=== PATIENT | female | born 1965 | race Caucasian/White ===

== ENCOUNTER 2020-05-02 06:25 | Outpatient (REF) | payer OTHER, SELFPAY ==
[2020-05-02 11:19] LABS: MANUAL DIFF FLAG NO
[2020-05-02 11:38] LABS: Basophils Percent Auto 0.5 % (0-2); Eosinophils Absolute Auto 0.4 X10*3/uL (0.0-0.4); Eosinophils Percent Auto 6.8 % (0-4); Hematocrit 43.3 % (37-47); Hemoglobin 13.9 g/dl (12.0-16.0); Imm Gran Abs Auto 0.01 X10*3/uL (0.00-0.03); Imm Gran Pct Auto 0.2 % (0.0-0.4); Lymphocytes Absolute Auto 1.9 X10*3/uL (1.2-4.9); Lymphocytes Percent Auto 30.5 % (20-40); Mean Corpuscular HGB Conc 32.1 g/dl (31.0-35.0); Mean Corpuscular Hemoglobin 29.8 pg (27.0-33.0); Mean Corpuscular Volume 92.7 fL (80-98); Mean Platelet Volume 10.7 fL (9.4-12.3); Monocytes Absolute Auto 0.5 X10*3/uL (0.1-1.2); Monocytes Percent Auto 7.9 % (2-11); Neutrophils Absolute Auto 3.4 X10*3/uL (2.0-8.3); Neutrophils Percent Auto 54.1 % (45-73); Platelet Count 229 X10*3/uL (160-400); Red Blood Count 4.67 X10*6/uL (4.20-5.50); Red Cell Distribution Width 13.5 % (11.0-16.0); White Blood Count 6.3 X10*3/uL (4.8-10.8)
[2020-05-02 12:00] LABS: Alanine Aminotransferase 25 U/L (0-31); Alkaline Phosphatase 74 U/L (39-117); Anion Gap 12 (12-20); Aspartate Amino Transferase 16 U/L (5-31); Bilirubin Total 0.4 mg/dL (0.0-1.0); Blood Urea Nitrogen 19 mg/dL (9-16); Calcium 8.8 mg/dL (8.4-10.2); Carbon Dioxide 29 mmol/L (22-29); Chloride 103 mmol/L (96-108); Cholesterol 173 mg/dL; Estimated Glomerular Filt Rate > 60; Glucose Fasting 115 mg/dL (60-99); HDL Cholesterol 54 mg/dL; LDL Cholesterol Calculated 100 mg/dl; Potassium 4.1 mmol/l (3.3-5.1); Sodium 140 mmol/L (135-145); Total Protein 6.9 g/dL (6.5-8.0); Triglycerides 95 mg/dL
[2020-05-02 12:12] LABS: T4 Thyroxine 6.4 ug/dL (4.5-12.0); Thyroid Stimulating Hormone 3.73 mIU/mL (0.32-4.0); Vitamin D 25-OH Total 26.8 ng/mL (>30)
[2020-05-02 12:17] LABS: Folate 10.7 ng/mL (> or = 4.0); Vitamin B12 507 pg/mL (200-900)
[2020-05-02 13:32] LABS: Estimated Average Glucose 114 mg/dL; Hemoglobin A1c % 5.6 %
== END 2020-05-02 06:26 | disposition home or self-care (01) ==
LOC: HO.HMGCLDS 06:25
PROVIDERS: PCP Internal Medicine; Visit Provider Internal Medicine
DX: K21.9 Gastro-esophageal reflux disease without esophagitis (principal); Z00.00 Encounter for general adult medical examination without abnormal findings; I10 Essential (primary) hypertension; F41.9 Anxiety disorder, unspecified; E66.01 Morbid (severe) obesity due to excess calories; R73.01 Impaired fasting glucose
CPT/HCPCS: 36415; 80053; 80061; 82306; 82607; 82746; 83036; 84436; 84443; 85025; 86900; 86901

== ENCOUNTER 2021-04-27 09:00 | Outpatient (REF) | payer OTHER, SELFPAY ==
--- NOTE | ~2021-04-27 | MM_ITS ---
EXAMINATION: MM SCREENING DIGITAL BREAST TOMOSYNTHESIS, BILATERAL CLINICAL INFORMATION: Screening. Asymptomatic. The lifetime risk of breast cancer based on the Tyrer-Cuzick Model is 8%. COMPARISON: Mammography: 03/31/2020, 03/26/2019, 01/01/2018 TECHNIQUE: Digital breast tomosynthesis is performed in both the craniocaudal and mediolateral oblique views along with computer-aided detection (CAD). Synthesized 2D images are generated from the tomosynthesis. Additional views are obtained: Exaggerated right CC, left CC, left MLO. FINDINGS: There are scattered areas of fibroglandular density (ACR BI-RADS breast composition Category b). There are no significant masses, abnormal calcifications, or other abnormalities. There is no developing density or interval mass or architectural abnormality. The axilla and skin contours are unremarkable. No significant changes. MM/MM tomosynthesis screening BI IMPRESSION: No mammographic evidence of malignancy. ASSESSMENT: BI-RADS 1: Negative RECOMMENDATION: Routine annual mammography screening. This patient's information was entered into a reminder system with a target due date for their next mammogram.
== END 2021-04-27 09:01 | disposition home or self-care (01) ==
LOC: HO.MAMMO 09:00
PROVIDERS: Visit Provider Internal Medicine
DX: Z12.31 Encounter for screening mammogram for malignant neoplasm of breast (principal)
CPT/HCPCS: 77063; 77067

== ENCOUNTER 2021-05-11 08:00 | Outpatient (RCR) | payer OTHER, SELFPAY ==
--- NOTE | 2021-04-20 09:08 | MHC.PT.EP ---
[facility] [place] Office [place] Office [place] Office [address] Juan Manuel Lee [address] [phone] F: [phone] F: [phone] F: [phone] F: [phone] Physical Therapy Plan of Care Date of Evaluation: Date of Surgery: n/a Diagnosis: dorsalgia Assessment: Patient is a 56 year old R handed female who presents with s/s consistent with dorsalgia. 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 She admittedly has to spend a good amount of time in suboptimal positions during the work day. Patient past medical history includes obesity, HTN, GERD. Current impairments include pain, ROM, strength, activity tolerance and functional mobility. Functional limitations include decreased ability to walk, stand, transfer, sleep, bend, lift, carry, negotiate stairs, and perform weight bearing activities.. Patient is motivated with good rehab potential. Skilled PT will address impairments and functional limitations in order to achieve goals. Frequency and Duration: The patient will be seen 2x/week for 5 weeks Short Term Goals: I with HEP - 2 weeks Symmetrical innom - 3 weeks Restore symmetrical rotation and gait - 3 weeks Chcf Goals: Pain free sleep and ADLs - 5 weeks No increased pain by end of work day - 5 weeks Oswestry 8% or better - 5 weeks Treatment Plan: Modalities to reduce pain, spasms and effusion. Manual therapy to restore motion and function. Therapeutic exercise to improve strength and flexibility. Neuromuscular re-education for posture and balance. Therapeutic activities to return to functional activities of daily living. Electronically signed by: Niranjan Jason, PT Please sign and return to therapist. Thank you for your referral.
--- NOTE | 2021-09-07 09:50 | MHC.PT.DC ---
[facility] [place] Office [place] Office [place] Office [address] Juan Manuel Lee [address] [phone] F: [phone] F: [phone] F: [phone] F: [phone] Physical Therapy Discharge Report Diagnosis: dorsalgia Date of Surgery: n/a Date of Evaluation: 04/20/21 Date of Discharge: 05/11/21 Treatments to Date: 4 Cancellations to Date: 0 No Shows to Date: 0 Discharge Status: Patient Elected to Stop Discharge Summary: Pt elected to stop treatment after this appointment. SI appears WFL and no pain with squish test. Performed core stabilization exercises and pt reports feeling better. SHe is making good progress and no increase in pain noted. Electronically signed by: Niranjan Jason, PT Please sign and return to therapist. Thank you for your referral.
== END 2021-09-07 09:51 | disposition home or self-care (01) ==
LOC: HO.PTCHIC 08:00
PROVIDERS: PCP Internal Medicine; Visit Provider Internal Medicine
DX: M54.9 Dorsalgia, unspecified (principal)
CPT/HCPCS: 97110; 97140; 97161

== ENCOUNTER 2021-09-04 07:43 | Outpatient (REF) | payer OTHER, SELFPAY ==
[2021-09-04 11:39] LABS: MANUAL DIFF FLAG NO
[2021-09-04 11:41] LABS: Basophils Percent Auto 0.4 % (0-2); Eosinophils Absolute Auto 0.3 X10*3/uL (0.0-0.4); Eosinophils Percent Auto 5.7 % (0-4); Hematocrit 45.4 % (37.0-47.0); Hemoglobin 14.8 g/dl (12.0-16.0); Imm Gran Abs Auto 0.01 X10*3/uL (0.00-0.03); Imm Gran Pct Auto 0.2 % (0.0-0.4); Lymphocytes Absolute Auto 1.8 X10*3/uL (1.2-4.9); Mean Corpuscular HGB Conc 32.6 g/dl (31.0-35.0); Mean Corpuscular Hemoglobin 29.7 pg (27.0-33.0); Mean Platelet Volume 10.7 fL (9.4-12.3); Monocytes Absolute Auto 0.5 X10*3/uL (0.1-1.2); Monocytes Percent Auto 8.3 % (2-11); Neutrophils Absolute Auto 2.9 x10*3/uL (2.0-8.3); Neutrophils Percent Auto 52.4 % (45-73); Platelet Count 260 X10*3/uL (160-400); Red Blood Count 4.99 X10*6/uL (4.20-5.50); Red Cell Distribution Width 13.4 % (11.0-16.0); White Blood Count 5.5 X10*3/uL (4.8-10.8)
[2021-09-04 11:58] LABS: Estimated Average Glucose 123 mg/dL; Hemoglobin A1c % 5.9 %
[2021-09-04 12:16] LABS: Free T4 (Free Thyroxine) 0.92 ng/dL (0.71-1.85); Thyroid Stimulating Hormone 3.04 uIU/mL (0.32-4.0); Vitamin D 25-OH Total 38.1 ng/mL (>30)
[2021-09-04 12:22] LABS: Alanine Aminotransferase 35 U/L (0-31); Albumin Level 4.1 g/dL (3.5-5.0); Alkaline Phosphatase 81 U/L (39-117); Anion Gap 14 (12-20); Aspartate Amino Transferase 28 U/L (5-31); Bilirubin Total 0.6 mg/dL (0.0-1.0); Blood Urea Nitrogen 16 mg/dL (9-16); Calcium 9.3 mg/dL (8.4-10.2); Carbon Dioxide 30 mmol/L (22-29); Chloride 101 mmol/L (96-108); Cholesterol 178 mg/dL; Estimated Glomerular Filt Rate > 60; Glucose Random 130 mg/dL (60-115); HDL Cholesterol 51 mg/dL; LDL Cholesterol Calculated 101 mg/dl; Potassium 3.5 mmol/L (3.3-5.1); Sodium 141 mmol/L (135-145); Total Protein 7.2 g/dL (6.5-8.0); Triglycerides 133 mg/dL
[2021-09-04 12:28] LABS: Folate 15.2 ng/mL (> or = 4.0); Vitamin B12 747 pg/mL (200-900)
== END 2021-09-04 07:44 | disposition home or self-care (01) ==
LOC: HO.HMGCLDS 07:43
PROVIDERS: Visit Provider Internal Medicine
DX: I10 Essential (primary) hypertension (principal); E78.00 Pure hypercholesterolemia, unspecified; R73.01 Impaired fasting glucose
CPT/HCPCS: 36415; 80053; 80061; 82306; 82607; 82746; 83036; 84439; 84443; 85025

== ENCOUNTER 2022-03-16 01:54 | Emergency (ER) | payer OTHER, SELFPAY ==
--- NOTE | ~2022-03-16 | CT_ITS ---
EXAMINATION: CT CHEST WITHOUT CONTRAST CLINICAL INFORMATION: Trauma. COMPARISON: 03/07/2016 TECHNIQUE: Multidetector volumetric CT imaging of the chest was done. Axial MIP volume rendering provided. Sagittal and coronal reformatted images were obtained. This CT examination was performed using dose optimization techniques as appropriate, variously including the following: *Automated exposure control *Adjustment of mA and/or kV according to patient size (this includes techniques or standardized protocols for targeted exams where dose is matched to indication/reason for exam; i.e. extremities or head) *Use of iterative reconstruction technique DLP: 603 mGy-cm FINDINGS: LUNGS: The lungs are clear with no evidence of inflammation or nodules. No pneumothorax. MEDIASTINUM: Normal heart size. No pericardial effusion. Great vessels normal caliber. No mediastinal or hilar lymphadenopathy. PLEURA: There is no pleural effusion. No pleural mass or thickening. AXILLA: No lymphadenopathy. UPPER ABDOMEN: Small sliding-type hiatal hernia. OSSEOUS STRUCTURES: Acute mildly displaced fractures of the left lateral fifth, sixth and seventh ribs.. No additional fractures. CT/CT chest wo IV con IMPRESSION: Acute mildly displaced fractures of the left lateral 5th-7th ribs. No pneumothorax.
--- NOTE | ~2022-03-16 | CT_ITS ---
EXAMINATION: NONCONTRAST HEAD CT NONCONTRAST CERVICAL SPINE CT INDICATION INFORMATION: Fall. COMPARISON: None TECHNIQUE: Separate noncontrast CT examinations of the head and cervical spine were performed. Coronal and sagittal images were created for each examination at the technologist workstation. This CT examination was performed using dose optimization techniques as appropriate, variously including the following: *Automated exposure control *Adjustment of mA and/or kV according to patient size (this includes techniques or standardized protocols for targeted exams where dose is matched to indication/reason for exam; i.e. extremities or head) *Use of iterative reconstruction technique DLP: 1204 mGy-cm FINDINGS: Head: There is no evidence of acute intracranial hemorrhage or territorial infarction. No abnormal mass effect or midline shift is seen. Ruth to white matter differentiation is well preserved. No extra-axial fluid collections are identified. No hydrocephalus. No significant volume loss. There is no abnormal attenuation within the brain parenchyma. No acute osseous or soft tissue abnormality. The mastoid air cells and visualized portions of the paranasal sinuses are well aerated. Cervical spine: There is anatomic alignment of the vertebral bodies and posterior elements. The atlantoaxial and atlantooccipital articulations are intact. Vertebral body heights maintained. Endplate osteophytes present throughout the lower cervical spine. No evidence of acute fracture. No prevertebral soft tissue swelling. Visualized portions of the lung apices are unremarkable. The thyroid gland is unremarkable. CT/CT head/brain wo IV con IMPRESSION: No acute intracranial pathology. No cervical spine fracture or traumatic malalignment.
--- NOTE | ~2022-03-16 | CT_ITS ---
EXAMINATION: NONCONTRAST HEAD CT NONCONTRAST CERVICAL SPINE CT INDICATION INFORMATION: Fall. COMPARISON: None TECHNIQUE: Separate noncontrast CT examinations of the head and cervical spine were performed. Coronal and sagittal images were created for each examination at the technologist workstation. This CT examination was performed using dose optimization techniques as appropriate, variously including the following: *Automated exposure control *Adjustment of mA and/or kV according to patient size (this includes techniques or standardized protocols for targeted exams where dose is matched to indication/reason for exam; i.e. extremities or head) *Use of iterative reconstruction technique DLP: 1204 mGy-cm FINDINGS: Head: There is no evidence of acute intracranial hemorrhage or territorial infarction. No abnormal mass effect or midline shift is seen. Ruth to white matter differentiation is well preserved. No extra-axial fluid collections are identified. No hydrocephalus. No significant volume loss. There is no abnormal attenuation within the brain parenchyma. No acute osseous or soft tissue abnormality. The mastoid air cells and visualized portions of the paranasal sinuses are well aerated. Cervical spine: There is anatomic alignment of the vertebral bodies and posterior elements. The atlantoaxial and atlantooccipital articulations are intact. Vertebral body heights maintained. Endplate osteophytes present throughout the lower cervical spine. No evidence of acute fracture. No prevertebral soft tissue swelling. Visualized portions of the lung apices are unremarkable. The thyroid gland is unremarkable. CT/CT cervical spine wo IV con IMPRESSION: No acute intracranial pathology. No cervical spine fracture or traumatic malalignment.
[2022-03-16 02:02] VITALS: BP 132/82; BP 136/83; PULSE 97; PULSE 98; RESP 14; TEMP 36.5; O2SAT 97; O2SAT 99; BMI 37.8
[2022-03-16 06:00] VITALS: BP 145/85; PULSE 90; O2SAT 96
[2022-03-16] MEDS: Ketorolac Tromethamine 15 MG/ML VIAL 30 MG IVPUSH (06:04)
--- NOTE | 2022-03-16 06:31 | ED_ITS ---
HPI - Trauma General Chief Complaint: Trauma Stated Complaint: left rib pain/fall Time Seen by Provider: 03/16/22 02:59 Source: patient Mode of arrival: EMS Limitations: no limitations History of Present Illness HPI narrative: 57-year-old female who presents emergency department for evaluation fall down a hill with head injury and left-sided chest injury. The patient states that approximately 01:00 hours she when outside to feed her goats. She states she was walking down a very steep hill and tripped on some tree stumps. She then tumbled down the hill and and struck her face on a shed wall at the bottom of the help She also believes that she may have struck her left chest on the shed wall. The patient had no loss of consciousness. She states she was able to get up and feed the goats. She took some ibuprofen and went to bed. When she woke up she was having severe pain in her left chest. She states the pain is a sharp pain which is 10/10. The pain is worse with movement worse with breathing. She denied headache, nausea, vomiting, weakness. She denied shortness of breath. MD complaint: fall Onset (ago): hour(s) (2) Loss of Consciousness: no Location: head, face and chest (Left) Severity scale (1-10): 10 Context: fall Associated symptoms: denies other symptoms Treatments prior to arrival: other (Ibuprofen) Related Data Previous Rx's Medication Instructions Recorded fluticasone propionate 50 2 spray intranasal DAILY #15.8 mL 04/26/20 mcg/actuation nasal spray,suspension (Flonase Allergy Relief) losartan 50 mg tablet 50 mg PO DAILY #90 tabs 08/09/21 omeprazole 20 mg capsule,delayed 20 mg PO DAILY #90 caps 08/09/21 release blood sugar diagnostic (FreeStyle #100 ea 09/11/21 Lite Strips) blood-glucose meter (FreeStyle #1 ea 09/11/21 Lite Meter kit) lancets 28 gauge (FreeStyle #100 ea 09/11/21 Lancets) lancets 28 gauge (FreeStyle #100 ea 09/11/21 Lancets) hydrochlorothiazide 25 mg tablet 25 mg PO QAM #90 tabs 02/05/22 alprazolam 0.25 mg tablet 0.25 mg PO DAILY PRN anxiety #28 03/01/22 tabs Allergies Allergy/AdvReac Type Severity Reaction Status Date / Time No Known Allergies Allergy Verified 02/22/22 08:56 [No Known Allergies*] Review of Systems Review of Systems: Yes all other systems are reviewed and are negative [facility] Past Medical History [facility] Narrative: Past medical history: Hypertension, hyperlipidemia, GERD. Past surgical history: None. Social history: She denies tobacco use. She states that she drinks 2 glasses of wine daily and she did drink some wine prior to going out to feed the goats. She denies drug use. 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 Medical History (Updated 03/16/22 @ 06:50 by Carlos Canales MD) Allergic rhinitis Anxiety GERD (gastroesophageal reflux disease) Hypertension Obesity Surgical History (Updated 02/22/22 @ 09:23 by Pushpa Meadows MD) History of abdominal surgery Family History Family History Father Diabetes Hypertension Mother Hypertension Renal cancer S/P total abdominal hysterectomy and bilateral salpingo-oophorectomy Sister Depression Brother Substance abuse Depression Social History Social History (Updated 02/22/22 @ 09:24 by Pushpa Meadows MD) Housing: House Alcohol intake: current Alcohol intake frequency: a few times a week Patient Tobacco Use Status: Former Tobacco user Tobacco use type: Cigarette Years Smoked: 2011 e-Cigarette/Vaping Use: Never Used Second Hand Smoke Exposure: No Advance Directives: No service: No Current occupational status: employed Cognitive needs: No Hearing needs: No Vision needs: Yes (contacts) Physical Exam Vital Signs: Vital Signs: Last Vital Signs Temp 97.7 F 03/16/22 02:02 Pulse 90 03/16/22 06:00 Resp 14 03/16/22 02:02 BP 145/85 H 03/16/22 06:00 Pulse Ox 96 03/16/22 06:00 O2 Del Method 03/16/22 06:00 BMI result Body Mass Index 37.8 Const: Other: Awake, alert, female patient, pleasant, cooperative, answers all questions appropriately, does not appear to be in distress HEENT: Other: Patient's head is normal cephalic, she has no tenderness palpation of her scalp there is no hematomas. She does have an abrasion to her a left upper lip, she has no tenderness palpation of her facial bones. Ears: external ears normal General nose exam: Normal external nose present Mouth: Normal oral and palatal mucosa present Throat: Yes posterior oropharynx normal Eyes: General: appearance normal, both eyes and all related structures Pupils: Equal, round and reactive pupils present Neck: Neck: Yes normal visual inspection, Yes no lymphadenopathy, Yes trachea midline and Yes supple Chest: Other: There is no ecchymosis or abrasions noted on the patient's chest wall, the patient has no crepitus. She has very localize tenderness palpation of her left lateral chest wall. Resp: Effort & Inspection: normal respiratory effort and able to speak in complete sentences Auscultation: clear to auscultation bilaterally Cardio: Rate: regular rate Rhythm: regular rhythm Heart sounds: S1 normal heart sound present, S2 normal heart sound present and no murmurs GI: Inspection: Yes normal to inspection Palpation (GI): Soft to palpation, nontender and no guarding Auscultation: normal bowel sounds : General: Yes no CVA tenderness Back/Spine/Pelvis: Back: no CVA tenderness Skin: General skin exam: no rashes or lesions noted Neuro: Cranial nerves: Yes CN's II-XII intact bilaterally and Yes Equal, round and reactive pupils present Cognition (Neuro): normal cognition Motor exam (neuro): 5/5 motor strength present throughout Extrem: General: Yes normal to inspection Psych: Appearance: grossly normal Speech and movement: Normal speech and movement present Affect: normal affect Attitude: cooperative Thought process: Normal thought process present Thought content: Normal thought content present Course Course Course Narrative: 57-year-old female who presents emergency department for evaluation of head injury and chest injury after falling down a hill. The patient's examination did reveal an abrasion to her left face with no significant scalp hematomas or scalp tenderness. The patient did have very localize tenderness palpation of her left lateral chest wall with no crepitus, ecchymosis or abrasions noted. The patient was treated with Toradol 30 mg IV with some improvement of her pain. The patient had a CT scan of her head and cervical spine which revealed no acute findings. The patient had a CT scan of her left chest which revealed no pneumothorax. The patient does have acute Sharlene displaced fractures of the left lateral rib 5-7. I did discuss these findings with the patient. The patient was wrapped in two 6 in Angel wraps to create a rib belt to try to help her pain. The patient does not want any narcotic medications. Patient was advised to take Tylenol and ibuprofen. She was advised to purchase a Velcro rib belt. She was given printed and verbal instructions on rib belts and on rib fractures. Discharge Plan Discharge Clinical Impression: Fall, Closed head injury, Abrasion of face, Multiple rib fractures Patient Disposition: Home, Self-Care Instructions: Rib Fracture (ED) Additional Instructions: The CT scan of your head revealed no broken bones or bleeding in your brain. The CT scan of your chest revealed for mildly displaced rib fractures on the left(ribs 5,6.7) Take ibuprofen 200 mg pills, 3 pills every 6 hours as needed for pain. Take Tylenol (acetaminophen) 500 mg pills, 2 pills every 4 to 6 hours as needed for pain. I wrapped do with 2 Angel wraps to make a rib belt. You should purchase a Velcro rib belt to apply to your chest to help reduce your pain. You should take the rib belt off every 4 hours for an hour and then you can reapply the rib belt. Follow-up with your doctor in 2 days. Please return to the emergency department if your symptoms get worse or if you develop any symptoms that are concerning to you. Please read the rib fracture instructions Please see the work note Prescriptions: No Action fluticasone propionate [Flonase Allergy Relief] 50 mcg/actuation spray,suspension 2 spray intranasal DAILY Qty: 15.8 7RF Rx Instructions: administer into each nostril losartan 50 mg tablet 50 mg PO DAILY Qty: 90 3RF omeprazole 20 mg capsule,delayed release(DR/EC) 20 mg PO DAILY Qty: 90 3RF hydrochlorothiazide 25 mg tablet 25 mg PO QAM Qty: 90 2RF alprazolam 0.25 mg tablet 0.25 mg PO DAILY PRN (Reason: anxiety) Qty: 28 0RF (DME) blood-glucose meter [FreeStyle Lite Meter] Kit See Rx Instructions .ROUTE .MEDSUPPLY Qty: 1 0RF Rx Instructions: As directed check the BS QD (DME) lancets [FreeStyle Lancets] 28 gauge misc See Rx Instructions .ROUTE .MEDSUPPLY Qty: 100 3RF Rx Instructions: As directed check BS QD (DME) lancets [FreeStyle Lancets] 28 gauge misc See Rx Instructions .ROUTE .MEDSUPPLY Qty: 100 3RF Rx Instructions: As directed check BS QD (DME) FreeStyle Lite Strips Strip See Rx Instructions .ROUTE .MEDSUPPLY Qty: 100 3RF Rx Instructions: As directed check the BS QD Stand Alone Forms: Work/School Release
== END 2022-03-16 08:31 | disposition home or self-care (01) ==
PROVIDERS: Emergency Provider Emergency Medicine Emergency Medical Services; PCP Internal Medicine
DX: S09.90XA Unspecified injury of head, initial encounter (principal); S22.42XA Multiple fractures of ribs, left side, initial encounter for closed fracture; S00.81XA Abrasion of other part of head, initial encounter; W17.81XA Fall down embankment (hill), initial encounter; Y93.89 Activity, other specified; Y92.017 Garden or yard in single-family (private) house as the place of occurrence of the external cause; Y99.8 Other external cause status
CPT/HCPCS: 70450; 71250; 72125; 96374; 99284; J1885

== ENCOUNTER 2022-05-03 09:49 | Outpatient (REF) | payer OTHER, SELFPAY ==
--- NOTE | ~2022-05-03 | MM_ITS ---
EXAMINATION: MM SCREENING DIGITAL BREAST TOMOSYNTHESIS, BILATERAL CLINICAL INFORMATION: Screening. Asymptomatic. The lifetime risk of breast cancer based on the Tyrer-Cuzick Model is 7%. COMPARISON: Mammography: April 27, 2021 and studies dating back to June 23, 2013 TECHNIQUE: Digital breast tomosynthesis is performed in both the craniocaudal and mediolateral oblique views along with computer-aided detection (CAD). Synthesized 2D images are generated from the tomosynthesis. FINDINGS: There are scattered areas of fibroglandular density (ACR BI-RADS breast composition Category b). There are no significant masses, abnormal calcifications, or other abnormalities. MM/MM tomosynthesis screening BI IMPRESSION: No significant changes from prior exam. ASSESSMENT: BI-RADS 1: Negative RECOMMENDATION: Routine annual mammography screening. This patient's information was entered into a reminder system with a target due date for their next mammogram.
== END 2022-05-03 09:50 | disposition home or self-care (01) ==
LOC: HO.MAMMO 09:49
PROVIDERS: PCP Internal Medicine; Visit Provider Internal Medicine
DX: Z12.31 Encounter for screening mammogram for malignant neoplasm of breast (principal)
CPT/HCPCS: 77063; 77067

== ENCOUNTER 2022-09-17 15:00 | Outpatient (RCR) | payer OTHER, SELFPAY ==
--- NOTE | 2022-06-19 10:24 | MHC.PT.EP ---
[facility] [place] Office [place] Office [place] Office [address] Juan Manuel Lee [address] [phone] F: [phone] F: [phone] F: [phone] F: [phone] Physical Therapy Plan of Care Date of Evaluation: Date of Surgery: Diagnosis: multiple rib fractures, neck pain Assessment: Patient is a pleasant 57 y.o female who is referred to PT by Dr Kia Alberto with Dx of multiple fx of ribs and neck pain after a fall. Her PT Dx is consistent with MD Dx with x-ray confirming fx of L lateral ribs 5th-7th. Her CT scan does not show any acute injuries and no fx of neck, likely just sprain/strain after fall. Her impairments include pain, poor posture, limited AROM, and weakness. 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 She will benefit from skilled PT to address aforementioned impairments and functional limitations to meet goals. Frequency and Duration: The patient will be seen 2x/week for 4 weeks. Short Term Goals: 2 weeks Patient demonstrates independence and consistency with HEP to self manage symptoms. Patient demonstrates improved excursion of L rib cage with deep breathing to reduce accessory muscle use to reduce neck pain. Fpc Goals: 4 weeks Patient presents with increased cervical rotation 70 degrees bilaterally to look over shoulders when driving. Patient presents with increased L shoulder AROM 180 degrees to reach overhead to cabinet. [ End ] Treatment Plan: Modalities to reduce pain, spasms and effusion. Manual therapy to restore motion and function. Therapeutic exercise to improve strength and flexibility. Neuromuscular re-education for posture and balance. Therapeutic activities to return to functional activities of daily living. Electronically signed by: Mar Wen, PT, DPT Please sign and return to therapist. Thank you for your referral.
--- NOTE | 2022-11-25 17:01 | MHC.PT.DC ---
[facility] [place] Office [place] Office [place] Office [address] Juan Manuel Lee [address] [phone] F: [phone] F: [phone] F: [phone] F: [phone] Physical Therapy Discharge Report Diagnosis: multiple rib fractures, neck pain Date of Surgery: Date of Evaluation: 06/18/22 Date of Discharge: 11/25/22 Treatments to Date: 12 Cancellations to Date: No Shows to Date: Discharge Status: Patient Elected to Stop Discharge Summary: Patient requested ceasing PT at this time. She has independent HEP. Electronically signed by: Mar Wen PT, DPT Please sign and return to therapist. Thank you for your referral.
== END 2022-11-25 17:01 | disposition home or self-care (01) ==
LOC: HO.PTCHIC 15:00
PROVIDERS: PCP Nurse Practitioner Family; Visit Provider Internal Medicine
DX: S16.1XXA Strain of muscle, fascia and tendon at neck level, initial encounter (principal); S22.49XA Multiple fractures of ribs, unspecified side, initial encounter for closed fracture; W19.XXXA Unspecified fall, initial encounter
CPT/HCPCS: 97110; 97140; 97161

== ENCOUNTER 2022-11-04 08:10 | Day surgery (SDC) | payer OTHER, SELFPAY ==
[2022-11-04 09:00] VITALS: BMI 40.9
--- NOTE | 2022-11-04 09:06 | P.CONAN_ITS ---
HPI - Anesthesia Eval Consult details Narrative: screening colonoscopy [facility] Active Problems Active Problems: All Active Problems (Updated 06/14/22 @ 09:28 by OSCAR Manriquez) Cervical muscle strain (Acute) Rib fractures (Acute) Fall (Acute) Impacted cerumen of left ear (Acute) Annual physical exam (Acute) Generalized anxiety disorder (Acute) Cellulitis of leg without foot, left (Acute) COVID-19 virus infection (Acute) Hypercholesterolemia (Acute) Type 2 diabetes mellitus with hyperglycemia (Acute) Back pain (Acute) Impacted cerumen of both ears (Acute) Annual physical exam (Acute) Tubular adenoma of colon (Acute) Insomnia (Acute) Obesity (Acute) Hypertension (Acute) GERD (gastroesophageal reflux disease) (Acute) Allergic rhinitis (Acute) Past Medical History Medical History (Updated 06/14/22 @ 09:28 by OSCAR Manriquez) Allergic rhinitis Anxiety Cervical muscle strain GERD (gastroesophageal reflux disease) Hypertension Obesity Family History Family History Father Diabetes Hypertension Mother Hypertension Renal cancer S/P total abdominal hysterectomy and bilateral salpingo-oophorectomy Sister Depression Brother Substance abuse Depression Family history of problems with anesthesia: No Surgical History Surgical History (Updated 02/22/22 @ 09:23 by Pushpa Meadows MD) History of abdominal surgery History of Problems with Anesthesia: No Social History Social History (Updated 02/22/22 @ 09:24 by Pushpa Meadows MD) Housing: House Alcohol intake: current Alcohol intake frequency: a few times a week Patient Tobacco Use Status: Former Tobacco user Tobacco use type: Cigarette Years Smoked: 2011 e-Cigarette/Vaping Use: Never Used Second Hand Smoke Exposure: No Use of substances other than those prescribed or required for medical reasons: No Advance Directives: No Advance Directives Information Provided: Yes service: No Current occupational status: employed Cognitive needs: No Hearing needs: No Vision needs: Yes (contacts) Meds Allergies Allergy/AdvReac Type Severity Reaction Status Date / Time No Known Allergies Allergy Verified 08/23/22 14:20 [No Known Allergies*] Active Medications: Current Medications Sodium Biphosphate/Sodium Phosphate (Sodium Phosphate,Boyle-Dibasic 133 Ml Enema) 133 ml ID ONCE PRN PRN Reason: Poor Colonoscopy Prep Results Exam Exam Date and Time: November 04, 2022 0906 Height,Weight and Vital Signs: Height 5 ft 2 in Weight 101.605 kg Airway Mallampati Class: II TM Dist: >3cm Neck ROM: Full Heart: rrr Lungs: cta Assessment and Plan Assessment Anesthesia Assessment: Anesthesia Plan Discussed and Chart Reviewed Final Anesthetic Review Family History of Problems with Anesthesia: No History of Problems with Anesthesia: No NPO: Yes ASA Class: III Final Preanesthetic Review: No Changes in Pt Med Stat, Meds/Allgs Chart Reviewed, Consent Obtained/Reviewed and Anes Risks/Benef Reviewed Patient Risk: Intermediate Procedure Risk: Low Anesthetic Plan Anesthetic Plan: MAC: Disposition: Standard PACU
[2022-11-04 09:20] VITALS: BP 131/79; PULSE 85; RESP 16; TEMP 36.6; O2SAT 97
[2022-11-04 09:22] LABS: Glucose, Whole Blood 114 mg/dL (60-115)
[2022-11-04 10:45] VITALS: BP 114/59; PULSE 88; RESP 16; TEMP 36.6; O2SAT 98
--- NOTE | 2022-11-04 10:45 | P.BOP_ITS ---
Brief Operative Note Date of Service: 11/04/22 Pre-op diagnosis: Screening Post-op diagnosis: other (Colon polyp) Procedure: Colonoscopy to the cecum and TI with bx/removal of a polyp Surgeon: Missael Davey Anesthesia: MAC Was an Library Services Dean used for this Procedure?: No Estimated blood loss (mL): 2.0 Pathology: other (A. Polyp at 20cm) Condition: stable Disposition: PACU
[2022-11-04 11:02] VITALS: BP 104/77; PULSE 89; RESP 16; TEMP 36.6; O2SAT 98
--- NOTE | 2022-11-04 11:31 | OP_ITS ---
DATE OF SERVICE: 11/04/2022 SURGEON: Missael Davey MD INDICATIONS: The patient presents for evaluation of colorectal cancer screening and personal history of tubular adenoma of the colon. Full consent has been obtained from her for this, including risks of bleeding and perforation. PREOPERATIVE DIAGNOSIS: POSTOPERATIVE DIAGNOSIS: PROCEDURE PERFORMED: Colonoscopy to the cecum and terminal ileum with biopsy and removal of polyp. ESTIMATED BLOOD LOSS: COMPLICATIONS: ANESTHESIA: Monitored anesthesia care. ASSISTANTS: SPECIMENS: PREOPERATIVE DIAGNOSES: Colorectal cancer screening and personal history of tubular adenoma of the colon. POSTOPERATIVE DIAGNOSES: Colorectal cancer screening and personal history of tubular adenoma of the colon, small colon polyp, sigmoid diverticulosis and internal hemorrhoids. DESCRIPTION OF PROCEDURE: The patient was placed in the left lateral decubitus position. The digital rectal exam revealed no abnormalities. The Olympus video pediatric colonoscope was entered into the rectum and advanced easily to the cecum. Once in the cecum, I did identify normal-appearing cecal pouch with appendiceal orifice and a normal-appearing ileocecal valve. The terminal ileum was cannulated and appeared normal. The scope was withdrawn back in the colon. The entire cecum and ileocecal valve appeared normal. The scope was then slowly withdrawn assessing all mucosal surfaces carefully. Preparation was excellent. At 20 cm, there was an approximately 3 or 4 mm polyp which was biopsied and completely removed with a cold biopsy forceps. I did not visualize any other polyps, colitis, nor angiodysplasia. There was a mild amount of sigmoid diverticulosis. In the rectum, the scope was retroflexed visualizing internal hemorrhoids, but no other pathology. The rectal mucosa appeared normal. The scope was straightened and withdrawn from the patient. She tolerated the procedure well and was returned to the recovery area in stable condition. IMPRESSION: 1. Small colon polyp. 2. Diverticulosis. 3. Internal hemorrhoids. PLAN: The results of the biopsy will be checked. I would recommend a followup colonoscopy in 5 years for further screening. She will otherwise see me on a p.r.n. basis. MD DARINEL Ag/BRENDA / [id number] MTDD
== END 2022-11-04 12:01 | disposition home or self-care (01) ==
PROVIDERS: PCP Internal Medicine; Visit Provider Internal Medicine
PROC: 0DJD8ZZ Inspection of Lower Intestinal Tract, Via Natural or Artificial Opening Endoscopic (ICD-10-PCS; CPT 45378; principal; 2022-11-04 09:40)
DX: Z12.11 Encounter for screening for malignant neoplasm of colon (principal); Z86.010 Personal history of colon polyps; D12.5 Benign neoplasm of sigmoid colon; K57.30 Diverticulosis of large intestine without perforation or abscess without bleeding; K64.8 Other hemorrhoids; K21.9 Gastro-esophageal reflux disease without esophagitis; Z87.891 Personal history of nicotine dependence; I10 Essential (primary) hypertension; E66.9 Obesity, unspecified; Z68.39 Body mass index [BMI] 39.0-39.9, adult; Z79.51 Long term (current) use of inhaled steroids; Z79.899 Other long term (current) drug therapy
CPT/HCPCS: 45380; 82947; 88305

== ENCOUNTER 2023-03-28 06:22 | Outpatient (REF) | payer OTHER, SELFPAY ==
[2023-03-28 11:20] LABS: MANUAL DIFF FLAG NO
[2023-03-28 11:38] LABS: Basophils Percent Auto 0.6 % (0-2); Eosinophils Absolute Auto 0.6 X10*3/uL (0.0-0.4); Eosinophils Percent Auto 7.9 % (0-4); Hematocrit 44.2 % (37.0-47.0); Hemoglobin 14.3 g/dl (12.0-16.0); Imm Gran Abs Auto 0.01 X10*3/uL (0.00-0.03); Imm Gran Pct Auto 0.1 % (0.0-0.4); Lymphocytes Absolute Auto 2.3 X10*3/uL (1.2-4.9); Lymphocytes Percent Auto 33.2 % (20-40); Mean Corpuscular HGB Conc 32.4 g/dl (31.0-35.0); Mean Corpuscular Hemoglobin 30.2 pg (27.0-33.0); Mean Corpuscular Volume 93.2 fL (80.0-98.0); Mean Platelet Volume 10.9 fL (9.4-12.3); Monocytes Absolute Auto 0.5 X10*3/uL (0.1-1.2); Monocytes Percent Auto 6.9 % (2-11); Neutrophils Absolute Auto 3.6 x10*3/uL (2.0-8.3); Neutrophils Percent Auto 51.3 % (45-73); Platelet Count 234 X10*3/uL (160-400); Red Blood Count 4.74 X10*6/uL (4.20-5.50); Red Cell Distribution Width 13.4 % (11.0-16.0); White Blood Count 6.9 X10*3/uL (4.8-10.8)
[2023-03-28 12:27] LABS: Estimated Average Glucose 105 mg/dL; Hemoglobin A1c % 5.3 % (<6.0)
[2023-03-28 12:53] LABS: Folate 6.5 ng/mL (> or = 4.0); Vitamin B12 434 pg/mL (200-900)
[2023-03-28 12:58] LABS: Creatinine Urine 182.72 mg/dL; Microalbum/Creatinine Ratio Ur 5.4 ug/mg cr (<30)
[2023-03-28 14:17] LABS: Alanine Aminotransferase 19 U/L (0-31); Alkaline Phosphatase 76 U/L (39-117); Anion Gap 11 (12-20); Aspartate Amino Transferase 16 U/L (5-31); Bilirubin Total 0.5 mg/dL (0.0-1.0); Blood Urea Nitrogen 24 mg/dL (9-16); Calcium 9.2 mg/dL (8.4-10.2); Carbon Dioxide 29 mmol/L (22-29); Chloride 106 mmol/L (96-108); Cholesterol 173 mg/dL (<200); Estimated Glomerular Filt Rate > 60; Glucose Random 120 mg/dL (60-115); HDL Cholesterol 61 mg/dL (>40); LDL Cholesterol Calculated 91 mg/dL (<100); Potassium 4.4 mmol/L (3.3-5.1); Sodium 142 mmol/L (135-145); Total Protein 6.9 g/dL (6.5-8.0); Triglycerides 106 mg/dL (<150)
[2023-03-28 14:21] LABS: Free T4 (Free Thyroxine) 0.84 ng/dL (0.71-1.85); Thyroid Stimulating Hormone 3.15 uIU/mL (0.32-4.0); Vitamin D 25-OH Total 32.5 ng/mL (>30)
== END 2023-03-28 06:23 | disposition home or self-care (01) ==
LOC: HO.HMGCLDS 06:22
PROVIDERS: PCP Internal Medicine; Visit Provider Internal Medicine
DX: E78.00 Pure hypercholesterolemia, unspecified (principal); E11.65 Type 2 diabetes mellitus with hyperglycemia
CPT/HCPCS: 36415; 80053; 80061; 82043; 82306; 82570; 82607; 82746; 83036; 84439; 84443; 85025

== ENCOUNTER 2023-03-28 11:14 | Outpatient (AMB) | payer OTHER, SELFPAY ==
--- NOTE | 2023-03-28 11:29 | A.OFFPC_ITS ---
Vital Signs 03/28/23 11:36 Height 5 ft 2 in Weight 226 lb 8 oz BMI 41.4 BP 118/76 Blood Pressure Location Lt brachial Position Sitting Respiration 17 Pulse 85 Pulse Source Pulse Oximeter Pulse Oximetry (%) 98 Oxygen Delivery Method Room Air Intake Visit Reasons: PE Intake Note: Patient is here today for a physical. Custodial Aide Required: No Accompanied by: Self / Same As Patient Allergies No Known Allergies [No Known Allergies*] Allergy (Verified 03/28/23 11:29) Medication List - Last Reconciled 03/28/23 by Pushpa Meadows MD alprazolam 0.25 mg PO DAILY PRN blood sugar diagnostic (FreeStyle Lite Strips) As directed check the BS QD blood-glucose meter (FreeStyle Lite Meter kit) As directed check the BS QD [CBD 1 gummy PO .QHS] fluticasone propionate 50 mcg/actuation (Flonase Allergy Relief) 2 sprays intranasal DAILY hydrochlorothiazide 25 mg PO QAM ibuprofen 800 mg PO TID PRN lancets (FreeStyle Lancets) As directed check BS QD losartan 50 mg PO DAILY omeprazole 20 mg PO DAILY Tobacco use date assessed: 08/23/22 Dental Screening Dental Screen Date: 03/28/23 Did you have a dental visit in the last 12 months?: Yes Did you have a dental problem in the last 6 months where you did not have access to dental care?: No Was dental information given to patient?: Patient has dentist HPI PE HPI Details 58-year-old obese female with diabetes m ellitus controlled hypertension GERD hypercholesterol E generalized anxiety disorder last seen in August 2022. Patient is here for physical exam. Mammogram is due next month colonoscopy up-to-date. Patient is scheduled for mammogram as well as cervical cancer screening next month [facility] Medical History (Updated 06/14/22 @ 09:28 by OSCAR Manriquez) Cervical muscle strain Obesity Hypertension GERD (gastroesophageal reflux disease) Anxiety Allergic rhinitis Surgical History History of abdominal surgery Family History Father Diabetes Hypertension Mother Hypertension Renal cancer S/P total abdominal hysterectomy and bilateral salpingo-oophorectomy Sister Depression Brother Substance abuse Depression Social History (Updated 03/28/23 @ 12:04 by Pushpa Meadows MD) Housing: House Alcohol intake: current Alcohol intake frequency: a few times a week Patient Tobacco Use Status: Former Tobacco user Tobacco use type: Cigarette Years Smoked: 2011 e-Cigarette/Vaping Use: Never Used Second Hand Smoke Exposure: No service: No Current occupational status: employed Cognitive needs: No Hearing needs: No Vision needs: Yes (contacts) Questionnaire Thrive Questionnaire Date Thrive assessed: 08/23/22 JOSEPHINE-7 AMB Questionnaire JOSEPHINE-7 Date JOSEPHINE - 7 assessed: 08/23/22 Source: Developed by Drs. Missael Goyal, Nitza Bernard, Shreyas Frances and colleagues, with an educational bakari from [employer]. Review of Systems Const Denies poor appetite and Denies weakness Eyes Denies no additional complaints ENT Reports Normal hearing present, Denies dizziness, Denies nasal congestion, Denies tinnitus and Denies sore throat Card Denies chest pain, Denies syncope, Denies rapid heart rate and Denies dyspnea Resp Denies cough and Denies dyspnea GI Denies change in stool character, Reports constipation, Denies diarrhea, Denies nausea and Denies vomiting Denies urinary frequency, Denies difficulty voiding and Denies dysuria Neuro Reports Normal hearing present, Denies confusion, Denies dizziness, Denies syn cope and Denies weakness Psych Denies confusion Physical exam (Primary Care) Vital Signs: Last Vital Signs Pulse 85 03/28/23 11:36 Resp 17 03/28/23 11:36 BP 118/76 03/28/23 11:36 Pulse Ox 98 03/28/23 11:36 Oxygen Delivery Method Room Air 03/28/23 11:36 BMI result Body Mass Index 41.4 Tobacco/Smoking Status: Tobacco use Status Tobacco use date assessed 08/23/22 03/28/23 11:30 Patient Tobacco Use Status Former Tobacco user 03/28/23 11:30 Tobacco use type Cigarette 03/28/23 11:30 e-Cigarette/Vaping Use Never Used 03/28/23 11:30 Thrive Assessment: Date of Thrive Assessment Date Thrive assessed 08/23/22 03/28/23 11:30 Const General: No confusion Orientation/consciousness: No confusion HENMT Head: Yes normocephalic Ears: external ears normal and TM's normal bilaterally Face and sinus: Yes normal facial exam Mouth: moist mucous membranes Throat: Yes tonsils normal Eyes Conjunctivae: conjunctivae normal Pupils: Equal, round and reactive pupils present and Pupil accommodation reflex normal Direct Ophthalmoscopy: normal light reflex Neck Neck: No lymphadenopathy Thyroid: Thyroid normal Chest Chest palpation & inspection: normal inspection of the chest Resp Effort & Inspection: normal respiratory effort and no audible wheezes Auscultation: clear to auscultation bilaterally, no crackles, no wheezes and lung sounds not diminished Cardio Rate: regular rate Rhythm: regular rhythm Peripheral pulses: radial pulses present and dorsalis pedis present GI Other: October 2022 colonoscopy Palpation (GI): no masses Auscultation: normal bowel sounds and normoactive bowel sounds Rectal Exam - Female: deferred Skin General skin exam: no rashes or lesions noted Rashes: no rashes Neuro Other: Pedal pulses weak but equal, pinprick normal General: No confusion Cranial nerves: Yes Equal, round and reactive pupils present and Yes Normal hearing present Cognition (Neuro): normal cognition Gait exam (Neuro): Normal gait present Motor exam (neuro): 5/5 motor strength present throughout Deep tendon reflexes (DTR's): Right brachioradialis reflex intensity grade: 2+, Left brachioradialis reflex intensity grade: 2+, Right patellar reflex intensity grade: 2+ and Left patellar reflex intensity grade: 2+ Extrem General: No edema Assessment and Plan Assessment & Plan (1) Annual physical exam: Code(s): Z00.00 - Encounter for general adult medical examination without abnormal findings (2) Type 2 diabetes mellitus with hyperglycemia: Code(s): E11.65 - Type 2 diabetes mellitus with hyperglycemia Plan: Decrease the amount of carbohydrate intake, pasta, bread, rice and potatoes are all sugar and that is aside from all the sweet stuff, remember that fruits are good but they are Sweet also. Hemoglobin A1c goal of less than 6.5 patient is diet controlled (3) Obesity: Code(s): E66.9 - Obesity, unspecified Qualifiers: Obesity type: due to excess calories Obesity classification: adult class 3 (BMI >= 40) Serious obesity comorbidity presence: without serious comorbidity Body mass index: BMI 40.0-44.9 Qualified Code(s): E66.01 - Morbid (severe) obesity due to excess calories; Z68.41 - Body mass index [BMI]40.0- 44.9, adult Plan: Diet and exercise on discussion with the patient on the need for accountability. Diet really important and exercising every day (4) Hypertension: Code(s): I10 - Essential (primary) hypertension Qualifiers: Hypertension type: essential hypertension Qualified Code(s): I10 - Essential (primary) hypertension Plan: Continue with blood pressure medication. Decrease salt intake and exercise patient is on hydrochlorothiazide 25 mg once a day and losartan 50 mg once a day (5) GERD (gastroesophageal reflux disease): Code(s): K21.9 - Gastro-esophageal reflux disease without esophagitis Qualifiers: Esophagitis presence: without esophagitis Qualified Code(s): K21.9 - Gastro-esophageal reflux disease without esophagitis Plan: Avoid the foods that causes that usually spicy foods, tomato products, juices, coffee, soda and foods that your sensitive to. After eating do not lie down, allow 3-4 hours before in lie down. And keep the head of bed above 30 degrees to avoid the acid from going up. (6) Generalized anxiety disorder: Code(s): F41.1 - Generalized anxiety disorder Plan: Continue with medication as needed (7) Hypercholesterolemia: Code(s): E78.00 - Pure hypercholesterolemia, unspecified Plan: Avoid fried foods, chicken skin, eggs, butter margarine, pastries and meat. Be it pork or beef they have a lot of cholesterol LDL goal of less than 100 and triglyceride of less than 150. Blood work is pending (8) Tubular adenoma of colon: Comment: Colonoscopy October 2022 Code(s): D12.6 - Benign neoplasm of colon, unspecified Plan: October 2022 Coding Level of Care Code Est Pt Prev Care 40-64y(85901) Diagnoses Annual physical exam Z00.00 Type 2 diabetes mellitus with hyperglycemia E11.65 Class 3 severe obesity due to excess calories without serious comorbidity with body mass index (BMI) of 40.0 to 44.9 in adult E66.01; Z68.41 Obesity type: due to excess calories Obesity classification: adult class 3 (BMI >= 40) Serious obesity comorbidity presence: without serious comorbidity Body mass index: BMI 40.0-44.9 Essential hypertension I10 Hypertension type: essential hypertension Gastroesophageal reflux disease without esophagitis K21.9 Esophagitis presence: without esophagitis Generalized anxiety disorder F41.1 Hypercholesterolemia E78.00 Tubular adenoma of colon D12.6
[2023-03-28 11:36] VITALS: BP 118/76; PULSE 85; RESP 17; O2SAT 98; BMI 41.4
== END 2023-03-28 12:24 | disposition home or self-care (01) ==
PROVIDERS: Visit Provider Internal Medicine
DX: Z00.00 Encounter for general adult medical examination without abnormal findings (principal); E11.65 Type 2 diabetes mellitus with hyperglycemia; E66.01 Morbid (severe) obesity due to excess calories; Z68.41 Body mass index [BMI] 40.0-44.9, adult; I10 Essential (primary) hypertension; K21.9 Gastro-esophageal reflux disease without esophagitis; F41.1 Generalized anxiety disorder; E78.00 Pure hypercholesterolemia, unspecified; D12.6 Benign neoplasm of colon, unspecified
CPT/HCPCS: 99396

== ENCOUNTER 2023-05-09 09:56 | Outpatient (REF) | payer OTHER, SELFPAY | END 2023-05-09 09:57 | disposition home or self-care (01) | LOC: HO.MAMMO 09:56 | PROVIDERS: PCP Internal Medicine; Visit Provider Internal Medicine | DX: Z12.31 Encounter for screening mammogram for malignant neoplasm of breast (principal) | CPT/HCPCS: 77063; 77067; 99396 ==

== ENCOUNTER → 2023-05-09 10:00 | Outpatient (BNV) | payer OTHER, SELFPAY | PROVIDERS: PCP Internal Medicine; Visit Provider Radiology Diagnostic Radiology | DX: Z12.31 Encounter for screening mammogram for malignant neoplasm of breast (principal) | CPT/HCPCS: 77063; 77067 ==

== ENCOUNTER 2023-05-09 12:51 | Outpatient (AMB) | payer OTHER, SELFPAY ==
--- NOTE | 2023-05-09 12:53 | MHC.OFFVIS ---
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 Scribed for BRENDA Boss by Kia Edmondson behavioral medical director, on 05/09/2023 at 12:57 pm, EST. 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 She is doing well with no concerns. She works for [employer]. Denies eat a healthy diet. She fell last 06/2022 and broke a rib and has not been able to exercise since. She is planning on getting back to exercising very soon. Denies having an intimate partner, due to her fiance passing away last month. Denies any vaginal dryness or irritation. Confirms slightly itchy skin on the thigh. Last pap smear; 08/17/2015 Last mammogram; 05/09/2023 Colonoscopy is UTD, a few months ago. Denies any family history of breast, ovarian or colon cancer. Mother had renal cancer. She has suffered several family loses in the last few years. Confirms having people to support her. [facility] Medical History Cervical muscle strain Obesity Hypertension GERD (gastroesophageal reflux disease) Anxiety Allergic rhinitis Surgical History History of abdominal surgery Family History Father Diabetes Hypertension Mother Hypertension Renal cancer S/P total abdominal hysterectomy and bilateral salpingo-oophorectomy Sister Depression Brother Substance abuse Depression Alcoholism Drug abuse and dependence Social History Housing: House Alcohol intake: current Alcohol intake frequency: a few times a week Patient Tobacco Use Status: Former Tobacco user Tobacco use type: Cigarette Years Smoked: 2011 e-Cigarette/Vaping Use: Never Used Second Hand Smoke Exposure: No service: No Current occupational status: employed Cognitive needs: No Hearing needs: No Vision needs: Yes (contacts) Female Reproductive History Menstrual Total pregnancies: 4 Full term: 2 Number of Living Children: 2 Ab induced: 1 Ab spontaneous: 1 Date of last pap smear: 08/17/15 Date of Mammogram: 05/09/23 Review of Systems Const All systems reviewed & are unremarkable except as noted in HPI and below Skin/Breast Reports pruritus (on thigh next to the vaginal area) Physical Exam Vital Signs: Last Vital Signs BP 110/82 05/09/23 12:54 BMI result Body Mass Index 40.8 Const General: cooperative, healthy appearing, well developed, alert and other (Tearful with discussing recent lose.) Orientation/consciousness: patient oriented x3 HEENT Head: Yes normal to inspection Eyes General: appearance normal, both eyes and all related structures Neck Neck: Yes normal visual inspection Thyroid: Thyroid normal Chest Chest palpation & inspection: normal inspection of the chest Breast/axilla inspection: normal inspection of the breasts (no puckering, dimpling, peau de orange, retraction, discharge, masses) Breast/axilla palpation: normal palpation of the breasts Resp Effort & Inspection: normal respiratory effort GI Inspection: Yes obesity Palpation (GI): Soft to palpation Rectal Exam - Female: deferred General: Yes bladder normal to inspection and Yes bladder normal to palpation External Female Exam: normal external appearance and normal appearance of the urethra Speculum Exam - Vagina: normal appearance of the vagina, normal palpation and vagina atrophic Speculum Exam - Cervix: normal palpation and Other cervical findings present (Bleed slightly with pap smear) Bimanual exam- vagina & uterus: normal bimanual exam, normal palpation, uterine size normal, bladder normal to palpation and normal palpation Bimanual Exam- Adnexa, other: normal adnexae and no masses Skin General skin exam: no rashes or lesions noted Neuro General: patient oriented x3 Cognition (Neuro): normal cognition Extrem General: Yes normal to inspection Psych Attitude: cooperative Thought process: Normal thought process present Assessment & Plan Assessment & Plan (1) Encounter for annual routine gynecological examination: Code(s): Z01.419 - Encounter for gynecological examination (general) (routine) without abnormal findings Plan: I offered the patient counseling to discuss her recent losses. At this time she would like to defer. She can call the office should she wish to have a referral at any time. Discussed: Current recommendations for pap smears per ASCCP guidelines. Breast awareness, periodic self breast exams and yearly mammogram. Maintain a healthy lifestyle, well balanced diet including Calcium 1,200 mg and Vitamin D 600 IU daily, and routine exercise. Contact the office with any postmenopausal bleeding. All of her questions and concerns were addressed to the best of my ability. RTO in 1 year for annual meat pumper exam. Orders: Orders Pap Smear Today Z01.419 - Encounter for gynecological examination (general) (routine) without abnormal findings Coding Level of Care Code Est Pt Prev Care 40-64y(20530) Diagnoses Encounter for annual routine gynecological examination Z01.419
[2023-05-09 12:54] VITALS: BP 110/82; BMI 40.8
== END 2023-05-09 14:02 | disposition home or self-care (01) ==
PROVIDERS: PCP Internal Medicine; Visit Provider Advanced Practice Midwife
DX: Z01.419 Encounter for gynecological examination (general) (routine) without abnormal findings (principal)
CPT/HCPCS: 99396

== ENCOUNTER 2023-05-09 14:15 | Outpatient (REF) | payer OTHER, SELFPAY ==
[2023-05-15 02:43] LABS: HPV mRNA E6/E7 rflx Not Detected (Not Detected)
== END 2023-05-09 14:16 | disposition home or self-care (01) ==
LOC: HO.LNP 14:15
PROVIDERS: Visit Provider Advanced Practice Midwife
DX: Z01.419 Encounter for gynecological examination (general) (routine) without abnormal findings (principal); Z11.51 Encounter for screening for human papillomavirus (HPV)
CPT/HCPCS: 87624; 88142

== ENCOUNTER 2023-09-26 13:54 | Outpatient (AMB) | payer OTHER, SELFPAY ==
[2023-09-26 13:57] VITALS: BP 116/64; PULSE 92; O2SAT 98; BMI 42.8
--- NOTE | 2023-09-26 13:57 | MHC.PC.OV ---
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: Not Required per policy Accompanied by: Self / Same As Patient Allergies No Known Allergies [No Known Allergies*] Allergy (Verified 09/26/23 13:57) Medication List - Last Reconciled 09/26/23 by Pushpa Meadows MD alprazolam 0.25 mg PO DAILY PRN blood sugar diagnostic (FreeStyle Lite Strips) As directed check the BS QD blood-glucose meter (FreeStyle Lite Meter kit) As directed check the BS QD [CBD 1 gummy PO .QHS] fluticasone propionate 50 mcg/actuation (Flonase Allergy Relief) 2 sprays intranasal DAILY hydrochlorothiazide 25 mg PO QAM ibuprofen 800 mg PO TID PRN lancets (FreeStyle Lancets) As directed check BS QD losartan 50 mg PO DAILY omeprazole 20 mg PO DAILY Tobacco use date assessed: 09/26/23 Dental Screening Dental Screen Date: 09/26/23 Did you have a dental visit in the last 12 months?: Yes Did you have a dental problem in the last 6 months where you did not have access to dental care?: No Was dental information given to patient?: Patient has dentist HPI follow up HPI Details 58-year-old morbidly obese female with controlled diabetes mellitus hypertension GERD hypercholesterolemia generalized anxiety disorder last seen in March 2023. Patient's mammogram is up-to-date colonoscopy is up-to-date October 2022 [facility] Medical History Cervical muscle strain Obesity Hypertension GERD (gastroesophageal reflux disease) Anxiety Allergic rhinitis Surgical History History of abdominal surgery Family History Father Diabetes Hypertension Mother Hypertension Renal cancer S/P total abdominal hysterectomy and bilateral salpingo-oophorectomy Sister Depression Brother Substance abuse Depression Alcoholism Drug abuse and dependence Social History Housing: House Alcohol intake: current Alcohol intake frequency: a few times a week Patient Tobacco Use Status: Former Tobacco user Tobacco use type: Cigarette Years Smoked: 2011 e-Cigarette/Vaping Use: Never Used Second Hand Smoke Exposure: No service: No Current occupational status: employed Cognitive needs: No Hearing needs: No Vision needs: Yes (contacts) Questionnaire PHQ-9 Over the last 2 weeks, how often have you been bothered by any of the following problems? 1. Little interest or pleasure in doing things: not at all 2. Feeling down, depressed, or hopeless: not at all 3. Trouble falling or staying asleep, or sleeping too much: not at all 4. Feeling tired or having little energy: not at all 5. Poor appetite or overeating: not at all 6. Feeling bad about yourself - or that you are a failure or have let yourself or your family down: not at all 7. Trouble concentrating on things, such as reading the newspaper or watching television: not at all 8. Moving or speaking so slowly that other people could have noticed. Or the opposite - being so fidgety or restless that you have been moving around a lot more than usual: not at all 9. Thoughts that you would be better off or of hurting yourself in some way: not at all Total score: 0 Depression Screening Interpretation: Negative Depression Screening Done: Yes Source: Developed by Drs. Missael Goyal, Nitza Bernard, Shreyas Frances and colleagues, with an educational bakari from [employer]. Thrive Questionnaire Date Thrive assessed: 09/26/23 I am a: Patient What is your living situation today?: I have a steady place to live Within the past 12 months, did the food you bought not last and you didn't have the money to get more?: Never true Within the past 12 months, did you worry whether your food would run out before you got money to buy more?: Never true Do you have trouble paying for medicines?: No Do you have trouble getting transportation to medical appointments?: No Do you have trouble paying your heating and electricity bill?: No Do you have trouble taking care of your child, family member or friend?: No Do you have trouble with day-to-day activities such as bathing, preparing meals, shopping, managing finances, etc.?: No Are you currently unemployed and looking for a job?: No Are you interested in more education?: No Please select the resources that you would like help with: None THRIVE Score: 0 AUDIT C Alcohol Use Questionnaire (AUDIT-C) 1. How often do you have a drink containing alcohol?: 2-3 times a week 2. How many drinks containing alcohol do you have on a typical day when you are drinking?: 1 or 2 3. How often do you have six or more drinks on one occasion?: Never Total Score: 3 JOSEPHINE-7 AMB Questionnaire JOSEPHINE-7 Date JOSEPHINE - 7 assessed: 09/26/23 Feeling nervous, anxious, or on edge: 0 = Not at all Not being able to stop or control worryin = Not at all Worrying too much about different things: 0 = Not at all Trouble relaxin = Not at all Being so restless that it is hard to sit still: 0 = Not at all Becoming easily annoyed or irritable: 0 = Not at all Feeling afraid as if something awful might happen: 0 = Not at all Total JOSEPHINE-7 score (0-4 normal; 5-9 mild; 10-14 moderate; 15-21 severe): 0 Source: Developed by Drs. Missael Goyal, Nitza Bernard, Shreyas Frances and colleagues, with an educational bakari from [employer]. Physical exam (Primary Care) Vital Signs: Last Vital Signs Pulse 92 09/26/23 13:57 BP 116/64 09/26/23 13:57 Pulse Ox 98 09/26/23 13:57 Oxygen Delivery Method Room Air 09/26/23 13:57 BMI result Body Mass Index 42.8 Tobacco/Smoking Status: Tobacco use Status Tobacco use date assessed 09/26/23 09/26/23 13:58 Patient Tobacco Use Status Former Tobacco user 09/26/23 13:58 Tobacco use type Cigarette 09/26/23 13:58 e-Cigarette/Vaping Use Never Used 09/26/23 13:58 PHQ-9: PHQ-9 Score PHQ-9: Total score 0 09/26/23 14:35 Depression Screening Interpretation: Negative Thrive Assessment: Date of Thrive Assessment Date Thrive assessed 09/26/23 09/26/23 13:58 Const General: alert; No acute distress Eyes Conjunctivae: conjunctivae normal Resp Auscultation: clear to auscultation bilaterally Cardio Rate: regular rate Rhythm: regular rhythm GI Inspection: Yes normal to inspection Extrem General: Yes normal to inspection and No edema Results AMB Hemoglobin A1c AMB Hemoglobin A1c 6.2 % Last Edit by VANDA Boyd on 09/26/23 14:37 Assessment and Plan Assessment & Plan (1) Type 2 diabetes mellitus with hyperglycemia: Code(s): E11.65 - Type 2 diabetes mellitus with hyperglycemia Plan: Decrease the amount of carbohydrate intake, pasta, bread, rice and potatoes are all sugar and that is aside from all the sweet stuff, remember that fruits are good but they are Sweet also. Hemoglobin A1c goal of less than 6.5 patient is diet controlled (2) GERD (gastroesophageal reflux disease): Code(s): K21.9 - Gastro-esophageal reflux disease without esophagitis Qualifiers: Esophagitis presence: without esophagitis Qualified Code(s): K21.9 - Gastro-esophageal reflux disease without esophagitis Plan: Avoid the foods that causes that usually spicy foods, tomato products, juices, coffee, soda and foods that your sensitive to. After eating do not lie down, allow 3-4 hours before in lie down. And keep the head of bed above 30 degrees to avoid the acid from going up. On omeprazole (3) Hypertension: Code(s): I10 - Essential (primary) hypertension Qualifiers: Hypertension type: essential hypertension Qualified Code(s): I10 - Essential (primary) hypertension Plan: Continue with blood pressure medication. Decrease salt intake and exercise losartan 50 mg once a day hydrochlorothiazide 25 mg once a day (4) Obesity: Code(s): E66.9 - Obesity, unspecified Qualifiers: Obesity type: due to excess calories Obesity classification: adult class 3 (BMI >= 40) Serious obesity comorbidity presence: without serious comorbidity Body mass index: BMI 40.0-44.9 Qualified Code(s): E66.01 - Morbid (severe) obesity due to excess calories; Z68.41 - Body mass index [BMI]40.0-44.9, adult Plan: Diet and exercise (5) Hypercholesterolemia: Code(s): E78.00 - Pure hypercholesterolemia, unspecified Plan: Avoid fried foods, chicken skin, eggs, butter margarine, pastries and meat. Be it pork or beef they have a lot of cholesterol LDL goal of less than 100 and triglyceride of less than 150. Diet controlled (6) Generalized anxiety disorder: Code(s): F41.1 - Generalized anxiety disorder Plan: Continue with therapy with sertraline and alprazolam Orders: Orders AMB Hemoglobin A1c Today E11.65 - Type 2 diabetes mellitus with hyperglycemia Medications: Discontinued sertraline Discontinued Reason: Patient Refused 25 mg PO DAILY 90 tabs 3RF F41.1 - Generalized anxiety disorder Coding Level of Care Code Est Pt Level 4 (16581) Diagnoses Type 2 diabetes mellitus with hyperglycemia E11.65 Gastroesophageal reflux disease without esophagitis K21.9 Esophagitis presence: without esophagitis Essential hypertension I10 Hypertension type: essential hypertension Class 3 severe obesity due to excess calories without serious comorbidity with body mass index (BMI) of 40.0 to 44.9 in adult E66.01; Z68.41 Obesity type: due to excess calories Obesity classification: adult class 3 (BMI >= 40) Serious obesity comorbidity presence: without serious comorbidity Body mass index: BMI 40.0-44.9 Hypercholesterolemia E78.00 Generalized anxiety disorder F41.1
== END 2023-09-26 15:43 | disposition home or self-care (01) ==
PROVIDERS: PCP Internal Medicine; Visit Provider Internal Medicine
DX: E11.65 Type 2 diabetes mellitus with hyperglycemia (principal); E66.01 Morbid (severe) obesity due to excess calories; Z68.41 Body mass index [BMI] 40.0-44.9, adult; K21.9 Gastro-esophageal reflux disease without esophagitis; I10 Essential (primary) hypertension; E78.00 Pure hypercholesterolemia, unspecified; F41.1 Generalized anxiety disorder
CPT/HCPCS: 83036; 99214

== ENCOUNTER 2023-12-17 13:40 | Outpatient (AMB) | payer OTHER, SELFPAY ==
--- NOTE | 2023-12-17 13:41 | AM.OFFWIN_ITS ---
Intake Vital Signs 12/17/23 13:42 Height 5 ft 2 in BMI Reason not done Patient refused/unable BP 118/80 Blood Pressure Location Lt brachial Position Sitting Pulse 104 H Pulse Source Pulse Oximeter Temp 97.6 F Temp Source Temporal Artery Scan Pulse Oximetry (%) 96 Oxygen Delivery Method Room Air Intake Visit Reasons: EP RT ankle swelling Intake Note: pt pt is here today for rt ankle swelling started 1 week ago Patient Tobacco Use Status: Former Tobacco user Allergies No Known Allergies [No Known Allergies*] Allergy (Verified 12/17/23 13:45) Do you need a note to return to daycare/school/sports/work: No HPI HPI Comments History of Present Illness Details 58-year-old female presents today compla ining of right ankle pain after being on vacation for a week and [place]. She states she was running on the beach climbing rocks and now has some discomfort across her metatarsal heads. Denies any particular injury or trauma to the area but was on her feet the whole time [facility] Medical History Cervical muscle strain Obesity Hypertension GERD (gastroesophageal reflux disease) Anxiety Allergic rhinitis Surgical History History of abdominal surgery Family History Father Diabetes Hypertension Mother Hypertension Renal cancer S/P total abdominal hysterectomy and bilateral salpingo-oophorectomy Sister Depression Brother Substance abuse Depression Alcoholism Drug abuse and dependence Social History Housing: House Alcohol intake: current Alcohol intake frequency: a few times a week Patient Tobacco Use Status: Former Tobacco user Tobacco use type: Cigarette Years Smoked: 2011 e-Cigarette/Vaping Use: Never Used Second Hand Smoke Exposure: No service: No Current occupational status: employed Cognitive needs: No Hearing needs: No Vision needs: Yes (contacts) Review of Systems Const All systems reviewed & are unremarkable except as noted in HPI and below Physical Exam Vital Signs: Last Vital Signs Temp 97.6 F 12/17/23 13:42 Pulse 104 H 12/17/23 13:42 BP 118/80 12/17/23 13:42 Pulse Ox 96 12/17/23 13:42 Oxygen Delivery Method Room Air 12/17/23 13:42 Extrem Right lower extremity: foot (Palpable tenderness across the metatarsal heads) Details: normal to inspection and tenderness Results Reviewed Results Reviewed: X-ray taken today shows degenerative changes across her metatarsal heads but no acute fracture noted Assessment & Plan Assessment & Plan (1) Right foot pain: Code(s): M79.671 - Pain in right foot (2) Metatarsalgia: Code(s): M77.40 - Metatarsalgia, unspecified foot Plan: The patient was given a ankle and foot 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 She will also ice and do seated work much as possible Plan See plan Orders: Orders XR foot RT 2V Today M79.671 - Pain in right foot Coding Level of Care Code Est Pt Level 3 (66037) Diagnoses Right foot pain M79.671 Metatarsalgia M77.40
[2023-12-17 13:42] VITALS: BP 118/80; PULSE 104; TEMP 36.4; O2SAT 96
== END 2023-12-17 14:59 | disposition home or self-care (01) ==
PROVIDERS: PCP Internal Medicine; Visit Provider Physician Assistant Medical
DX: M79.671 Pain in right foot (principal); M77.41 Metatarsalgia, right foot
CPT/HCPCS: 99213

== ENCOUNTER 2023-12-17 13:54 | Outpatient (REF) | payer OTHER, SELFPAY ==
--- NOTE | ~2023-12-17 | XR_ITS ---
EXAMINATION: XR FOOT, RIGHT CLINICAL INFORMATION: Right foot pain COMPARISON: None available. TECHNIQUE: AP, lateral, and oblique views of the right foot. FINDINGS: Calcaneal spurring. Achilles enthesopathy. Mild degenerative changes first MTP. No fracture or dislocation. Calcification lateral to the fifth distal phalanges. XR/XR foot RT 2V IMPRESSION: No acute bony pathology. There are no prior obtained at 1 mm
== END 2023-12-17 13:55 | disposition home or self-care (01) ==
LOC: HO.HMGCX 13:54
PROVIDERS: PCP Internal Medicine; Visit Provider Physician Assistant Medical
DX: M79.671 Pain in right foot (principal)
CPT/HCPCS: 73620

== ENCOUNTER 2024-04-02 13:53 | Outpatient (AMB) | payer OTHER, SELFPAY ==
--- NOTE | 2024-04-02 13:59 | MHC.PC.OV ---
Vital Signs 04/02/24 14:00 Height 5 ft 2 in Weight 230 lb BMI 42.1 BP 118/70 Blood Pressure Location Lt brachial Position Sitting Pulse 94 Pulse Source Pulse Oximeter Pulse Oximetry (%) 98 Oxygen Delivery Method Room Air Intake Visit Reasons: PE Intake Note: Patient is here today for a physical. Orbitread Operator Required: No Receptionist: Not Required per policy Accompanied by: Self / Same As Patient Allergies No Known Allergies [No Known Allergies*] Allergy (Verified 04/02/24 14:00) Medication List - Last Reconciled 04/02/24 by Pushpa Meadows MD alprazolam 0.25 mg PO DAILY PRN blood sugar diagnostic (FreeStyle Lite Strips) As directed check the BS QD blood-glucose meter (FreeStyle Lite Meter kit) As directed check the BS QD fluticasone propionate 50 mcg/actuation (Flonase Allergy Relief) 2 sprays intranasal DAILY hydrochlorothiazide 25 mg PO QAM lancets (FreeStyle Lancets) As directed check BS QD losartan 50 mg PO DAILY omeprazole 20 mg PO DAILY Tobacco use date assessed: 04/02/24 Dental Screening Dental Screen Date: 09/26/23 HPI PE HPI Details 59-year-old morbidly obese female with GERD hypertension diabetes mellitus hypercholesterolemia coming in for physical exam last seen in 10/01/2023. Patient's mammogram is up-to-date colonoscopy is up-to-date. Review of the notes had an x-ray of the right foot showing calcaneal spurring Achilles enthesopathy mild degenerative changes PFSH Medical History Cervical muscle strain Obesity Hypertension GERD (gastroesophageal reflux disease) Anxiety Allergic rhinitis Surgical History History of abdominal surgery Family History Father Diabetes Hypertension Mother Hypertension Renal cancer S/P total abdominal hysterectomy and bilateral salpingo-oophorectomy Sister Depression Brother Substance abuse Depression Alcoholism Drug abuse and dependence Social History (Updated 04/02/24 @ 14:27 by Pushpa Meadows MD) Housing: House Alcohol intake: current Alcohol intake frequency: a few times a week Comment: 3x a week3-4 beers Patient Tobacco Use Status: Former Tobacco user Tobacco use type: Cigarette Years Smoked: 2011 e-Cigarette/Vaping Use: Never Used Second Hand Smoke Exposure: No service: No Current occupational status: employed Cognitive needs: No Hearing needs: No Vision needs: Yes (contacts) Questionnaire PHQ-9 Over the last 2 weeks, how often have you been bothered by any of the following problems? 1. Little interest or pleasure in doing things: not at all 2. Feeling down, depressed, or hopeless: not at all 3. Trouble falling or staying asleep, or sleeping too much: several days 4. Feeling tired or having little energy: not at all 5. Poor appetite or overeating: not at all 6. Feeling bad about yourself - or that you are a failure or have let yourself or your family down: not at all 7. Trouble concentrating on things, such as reading the newspaper or watching television: not at all 8. Moving or speaking so slowly that other people could have noticed. Or the opposite - being so fidgety or restless that you have been moving around a lot more than usual: not at all 9. Thoughts that you would be better off or of hurting yourself in some way: not at all Total score: 1 Depression Screening Interpretation: Positive Depression Screening Done: Yes Source: Developed by Drs. Missael Goyal, Nitza Bernard, Shreyas Frances and colleagues, with an educational bakari from [employer]. Thrive Questionnaire Date Thrive assessed: 04/02/24 I am a: Patient What is your living situation today?: I have a steady place to live Within the past 12 months, did the food you bought not last and you didn't have the money to get more?: Never true Within the past 12 months, did you worry whether your food would run out before you got money to buy more?: Never true Do you have trouble paying for medicines?: No Do you have trouble getting transportation to medical appointments?: No Do you have trouble paying your heating and electricity bill?: No Do you have trouble taking care of your child, family member or friend?: No Do you have trouble with day-to-day activities such as bathing, preparing meals, shopping, managing finances, etc.?: No Are you currently unemployed and looking for a job?: No Are you interested in more education?: No Please select the resources that you would like help with: None Currently or been in a relationship where the following occur: No concerns reported THRIVE Score: 0 AUDIT C Alcohol Use Questionnaire (AUDIT-C) 1. How often do you have a drink containing alcohol?: 4 or more times a week 2. How many drinks containing alcohol do you have on a typical day when you are drinking?: 1 or 2 3. How often do you have six or more drinks on one occasion?: Less than monthly Total Score: 5 JOSEPHINE-7 AMB Questionnaire JOSEPHINE-7 Date JOSEPHINE - 7 assessed: 04/02/24 Feeling nervous, anxious, or on edge: 0 = Not at all Not being able to stop or control worryin = Not at all Worrying too much about different things: 0 = Not at all Trouble relaxin = Not at all Being so restless that it is hard to sit still: 0 = Not at all Becoming easily annoyed or irritable: 0 = Not at all Feeling afraid as if something awful might happen: 0 = Not at all Total JOSEPHINE-7 score (0-4 normal; 5-9 mild; 10-14 moderate; 15-21 severe): 0 Source: Developed by Drs. Missael Goyal, Nitza Bernard, Shreyas Frances and colleagues, with an educational bakari from [employer]. Review of Systems Const Denies poor appetite and Denies weakness Eyes Denies no additional complaints ENT Reports Normal hearing present, Denies dizziness, Denies nasal congestion, Denies tinnitus and Denies sore throat Card Denies chest pain, Denies syncope, Denies rapid heart rate and Denies dyspnea Resp Denies cough and Denies dyspnea GI Denies change in stool character, Reports constipation, Denies diarrhea, Denies nausea and Denies vomiting Denies urinary frequency, Denies difficulty voiding and Denies dysuria Neuro Reports Normal hearing present, Denies confusion, Denies dizziness, Denies syncope and Denies weakness Psych Denies confusion Physical exam (Primary Care) Vital Signs: Last Vital Signs Pulse 94 04/02/24 14:00 BP 118/70 04/02/24 14:00 Pulse Ox 98 04/02/24 14:00 Oxygen Delivery Method Room Air 04/02/24 14:00 BMI result Body Mass Index 42.1 Tobacco/Smoking Status: Tobacco use Status Tobacco use date assessed 04/02/24 04/02/24 14:06 Patient Tobacco Use Status Former Tobacco user 04/02/24 14:06 Tobacco use type Cigarette 04/02/24 14:06 e-Cigarette/Vaping Use Never Used 04/02/24 14:06 PHQ-9: PHQ-9 Score PHQ-9: Total score 1 04/02/24 14:06 Depression Screening Interpretation: Positive Thrive Assessment: Date of Thrive Assessment Date Thrive assessed 04/02/24 04/02/24 14:06 Currently or been in a relationship where the following occur: No concerns reported Const General: No confusion Orientation/consciousness: No confusion HENMT Other: Impacted cerumen bilateral Head: Yes normocephalic Ears: external ears normal Face and sinus: Yes normal facial exam Mouth: moist mucous membranes Throat: Yes tonsils normal Eyes Conjunctivae: conjunctivae normal Pupils: Equal, round and reactive pupils present and Pupil accommodation reflex normal Direct Ophthalmoscopy: normal light reflex Neck Neck: No lymphadenopathy Thyroid: Thyroid normal Chest Chest palpation & inspection: normal inspection of the chest Resp Effort & Inspection: normal respiratory effort and no audible wheezes Auscultation: clear to auscultation bilaterally, no crackles, no wheezes and lung sounds not diminished Cardio Rate: regular rate Rhythm: regular rhythm Peripheral pulses: radial pulses present and dorsalis pedis present GI Palpation (GI): no masses Auscultation: normal bowel sounds and normoactive bowel sounds Rectal Exam - Female: deferred Skin General skin exam: no rashes or lesions noted Rashes: no rashes Neuro General: No confusion Cranial nerves: Yes Equal, round and reactive pupils present and Yes Normal hearing present Cognition (Neuro): normal cognition Gait exam (Neuro): Normal gait present Motor exam (neuro): 5/5 motor strength present throughout Deep tendon reflexes (DTR's): Right brachioradialis reflex intensity grade: 2+, Left brachioradialis reflex intensity grade: 2+, Right patellar reflex intensity grade: 2+ and Left patellar reflex intensity grade: 2+ Extrem General: No edema Office Procedures Cerumen Removal From which ear canal was the cerumen removed: bilateral Removal: otoscope w/curette and cerumen loop/spoon Notes: patient tolerated procedure well, no complications and ear canal clear [id number] Wax Removal by Spoon/Curette Results AMB Hemoglobin A1c AMB Hemoglobin A1c 5.6 % Last Edit by VANDA Borrero on 04/02/24 14:10 Results Reviewed Results Reviewed: Laboratory Last Values Hgb A1c (Clinic) 5.6 % (4.0-6.0) 04/02/24 13:58 Assessment and Plan Assessment & Plan (1) Annual physical exam: Code(s): Z00.00 - Encounter for general adult medical examination without abnormal findings Plan: Patient is advised to eat healthy, keep well hydrated, keep active and have adequate sleep. (2) Type 2 diabetes mellitus with hyperglycemia: Code(s): E11.65 - Type 2 diabetes mellitus with hyperglycemia Plan: Decrease the amount of carbohydrate intake, pasta, bread, rice and potatoes are all sugar and that is aside from all the sweet stuff, remember that fruits are good but they are Sweet also. Hemoglobin A1c goal of less than 6.5. Patient is diet controlled (3) Obesity: Code(s): E66.9 - Obesity, unspecified Qualifiers: Obesity type: due to excess calories Obesity classification: adult class 3 (BMI >= 40) Serious obesity comorbidity presence: without serious comorbidity Body mass index: BMI 40.0-44.9 Qualified Code(s): E66.01 - Morbid (severe) obesity due to excess calories; Z68.41 - Body mass index [BMI]40.0-44.9, adult Plan: Diet and exercise (4) Hypertension: Code(s): I10 - Essential (primary) hypertension Qualifiers: Hypertension type: essential hypertension Qualified Code(s): I10 - Essential (primary) hypertension Plan: Continue with blood pressure medication. Decrease salt intake and exercise patient takes hydrochlorothiazide 25 mg once a day losartan 50 mg once a day (5) GERD (gastroesophageal reflux disease): Code(s): K21.9 - Gastro-esophageal reflux disease without esophagitis Qualifiers: Esophagitis presence: without esophagitis Qualified Code(s): K21.9 - Gastro-esophageal reflux disease without esophagitis Plan: Avoid the foods that causes that usually spicy foods, tomato products, juices, coffee, soda and foods that your sensitive to. After eating do not lie down, allow 3-4 hours before in lie down. And keep the head of bed above 30 degrees to avoid the acid from going up. (6) Hypercholesterolemia: Code(s): E78.00 - Pure hypercholesterolemia, unspecified Plan: Avoid fried foods, chicken skin, eggs, butter margarine, pastries and meat. Be it pork or beef they have a lot of cholesterol LDL goal of less than 100 and triglyceride of less than 150. Will need blood work repeated (7) Generalized anxiety disorder: Code(s): F41.1 - Generalized anxiety disorder Plan: Continue with present medication (8) Impacted cerumen of left ear: Code(s): H61.22 - Impacted cerumen, left ear Plan: scoop used no irrigation TM intact Orders: Orders Comprehensive Met. Panel Today E11.65 - Type 2 diabetes mellitus with hyperglycemia Lipid Panel Today E11.65 - Type 2 diabetes mellitus with hyperglycemia, E78.00 - Pure hypercholesterolemia, unspecified Microalbumin, Random (w Creat) Today E11.65 - Type 2 diabetes mellitus with hyperglycemia Creatinine Urine Today E11.65 - Type 2 diabetes mellitus with hyperglycemia Vitamin B12 and Folate Today E11.65 - Type 2 diabetes mellitus with hyperglycemia Vitamin D 25-OH Total Today E11.65 - Type 2 diabetes mellitus with hyperglycemia AMB Hemoglobin A1c Today E11.65 - Type 2 diabetes mellitus with hyperglycemia Complete Blood Count Auto Diff Today E11.65 - Type 2 diabetes mellitus with hyperglycemia Free T4 (Free Thyroxine) Today E11.65 - Type 2 diabetes mellitus with hyperglycemia Thyroid Stimulating Hormone Today E11.65 - Type 2 diabetes mellitus with hyperglycemia Medications: Refilled omeprazole 20 mg PO DAILY 90 caps 3RF E11.65 - Type 2 diabetes mellitus with hyperglycemia hydrochlorothiazide 25 mg PO QAM 90 tabs 2RF E11.65 - Type 2 diabetes mellitus with hyperglycemia losartan 50 mg PO DAILY 90 tabs 3RF E11.65 - Type 2 diabetes mellitus with hyperglycemia Coding Level of Care Code Est Pt Prev Care 40-64y(97599) Diagnoses Annual physical exam Z00.00 Type 2 diabetes mellitus with hyperglycemia E11.65 Class 3 severe obesity due to excess calories without serious comorbidity with body mass index (BMI) of 40.0 to 44.9 in adult E66.01; Z68.41 Obesity type: due to excess calories Obesity classification: adult class 3 (BMI >= 40) Serious obesity comorbidity presence: without serious comorbidity Body mass index: BMI 40.0-44.9 Essential hypertension I10 Hypertension type: essential hypertension Gastroesophageal reflux disease without esophagitis K21.9 Esophagitis presence: without esophagitis Hypercholesterolemia E78.00 Generalized anxiety disorder F41.1 Impacted cerumen of left ear H61.22 CPT Codes Office Procedure - CPT: 76527-[id number] Wax Removal by Spoon/Curette ([id number])
[2024-04-02 14:00] VITALS: BP 118/70; PULSE 94; O2SAT 98; BMI 42.1
== END 2024-04-02 14:49 | disposition home or self-care (01) ==
PROVIDERS: PCP Internal Medicine; Visit Provider Internal Medicine
DX: Z00.00 Encounter for general adult medical examination without abnormal findings (principal); E11.65 Type 2 diabetes mellitus with hyperglycemia; E66.01 Morbid (severe) obesity due to excess calories; Z68.41 Body mass index [BMI] 40.0-44.9, adult; I10 Essential (primary) hypertension; H61.22 Impacted cerumen, left ear; K21.9 Gastro-esophageal reflux disease without esophagitis; E78.00 Pure hypercholesterolemia, unspecified; F41.1 Generalized anxiety disorder

== ENCOUNTER → 2024-04-02 13:53 | Outpatient (BNVA) | payer OTHER, SELFPAY | PROVIDERS: PCP Internal Medicine; Visit Provider Internal Medicine | DX: Z00.00 Encounter for general adult medical examination without abnormal findings (principal); E11.65 Type 2 diabetes mellitus with hyperglycemia; H61.22 Impacted cerumen, left ear; E66.01 Morbid (severe) obesity due to excess calories; Z68.41 Body mass index [BMI] 40.0-44.9, adult; Z71.3 Dietary counseling and surveillance; Z79.899 Other long term (current) drug therapy | CPT/HCPCS: 69210; 83036; 99396 ==

== ENCOUNTER 2024-05-14 08:50 | Outpatient (AMB) | payer OTHER, SELFPAY ==
--- NOTE | 2024-05-14 08:55 | A.OFFVIS_ITS ---
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 She is doing well with no concerns. Attempting to eat a healthy diet with calcium and vitamin D and stays active with yardwork. Currently not sexually active. Denies any vaginal dryness or irritation. STI testing offered; she declines. Last pap smear; 2022. Last mammogram; 2023. Colonoscopy is UTD. Denies any family history of breast, ovarian or colon cancer. [facility] Medical History Cervical muscle strain Obesity Hypertension GERD (gastroesophageal reflux disease) Anxiety Allergic rhinitis Surgical History History of abdominal surgery Family History Father Diabetes Hypertension Mother Hypertension Renal cancer S/P total abdominal hysterectomy and bilateral salpingo-oophorectomy Sister Depression Brother Substance abuse Depression Alcoholism Drug abuse and dependence Social History (Updated 05/14/24 @ 09:21 by Lacie Zimmer CNM) Housing: House Alcohol intake: current Alcohol intake frequency: a few times a week Comment: 3x a week3-4 beerleopoldo Patient Tobacco Use Status: Former Tobacco user Tobacco use type: Cigarette Years Smoked: 2011 e-Cigarette/Vaping Use: Never Used Second Hand Smoke Exposure: No service: No Current occupational status: employed 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 Cognitive needs: No Hearing needs: No Vision needs: Yes (contacts) Female Reproductive History Menstrual Menopause type: natural Total pregnancies: 4 Full term: 2 Ab induced: 1 Ab spontaneous: 1 Date of last pap smear: 05/09/23 (pap and hpv negative ) Date of Mammogram: 05/09/23 (bi-rad 1) Review of Systems Const All systems reviewed & are unremarkable except as noted in HPI and below Reports as per HPI Eyes Reports no additional complaints ENT Reports no additional complaints Card Reports no additional complaints Resp Reports no additional complaints GI Reports as per HPI and Reports no additional complaints Reports as per HPI Musc Reports no additional complaints Skin/Breast Reports as per HPI Neuro Reports no additional complaints Psych Reports no additional complaints Endo Reports no additional complaints Donnie/Lymph Reports no additional complaints Aller/Immun Reports no additional complaints Physical Exam Vital Signs: Last Vital Signs BP 132/94 H 05/14/24 09:00 BMI result Body Mass Index 43.0 Const General: cooperative, healthy appearing, no acute distress, well developed and alert Orientation/consciousness: patient oriented x3 HEENT Head: Yes normal to inspection Eyes General: appearance normal, both eyes and all related structures Neck Neck: Yes normal visual inspection Thyroid: Thyroid normal Chest Chest palpation & inspection: normal inspection of the chest and other (no puckering, dimpling, peau de orange, retraction, discharge, masses) Breast/axilla inspection: normal inspection of the breasts Breast/axilla palpation: normal palpation of the breasts Resp Effort & Inspection: normal respiratory effort GI Inspection: Yes normal to inspection Palpation (GI): Soft to palpation Rectal Exam - Female: deferred General: Yes bladder normal to palpation External Female Exam: normal external appearance and normal appearance of the urethra Speculum Exam - Vagina: normal appearance of the vagina, normal palpation, normal vaginal discharge and vagina atrophic Speculum Exam - Cervix: normal appearance of the cervix and normal palpation Bimanual exam- vagina & uterus: normal bimanual exam, normal palpation, uterine size normal, bladder normal to palpation, normal palpation and non-tender Bimanual Exam- Adnexa, other: no masses Skin General skin exam: no rashes or lesions noted Rashes: no rashes Neuro General: patient oriented x3 Cognition (Neuro): normal cognition Extrem General: Yes normal to inspection Psych Attitude: cooperative Thought process: Normal thought process present Assessment & Plan Assessment & Plan (1) Encounter for well woman exam with routine gynecological exam: Code(s): Z01.419 - Encounter for gynecological examination (general) (routine) without abnormal findings Category: Medical Plan Discussed: Current recommendations for pap smears per ASCCP guidelines. Breast awareness, periodic self breast exams and yearly mammogram. Maintain a healthy lifestyle, well balanced diet including Calcium 1,200 mg and Vitamin D 600 IU daily, and routine exercise. Contact the office with any postmenopausal bleeding. Patient verbalizes understanding and agrees to the plan of care. She was given opportunity to ask questions and all questions were answered to the best of my ability. RTO in 1 year for annual wire taper exam. This note is constructed using voice recognition software. While every effort has been made to ensure accuracy, nursing program manager errors may have been included. Coding Level of Care Code Est Pt Prev Care 40-64y(04287) Diagnoses Encounter for well woman exam with routine gynecological exam Z01.419
[2024-05-14 09:00] VITALS: BP 132/94; BMI 43.0
== END 2024-05-14 09:23 | disposition home or self-care (01) ==
LOC: HO.HWS 08:50
PROVIDERS: PCP Internal Medicine; Visit Provider Advanced Practice Midwife
DX: Z01.419 Encounter for gynecological examination (general) (routine) without abnormal findings (principal)
CPT/HCPCS: 99396

== ENCOUNTER 2024-05-14 09:56 | Outpatient (REF) | payer OTHER, SELFPAY ==
--- NOTE | ~2024-05-14 | MM_ITS ---
EXAMINATION: MM SCREENING DIGITAL BREAST TOMOSYNTHESIS, BILATERAL CLINICAL INFORMATION: Screening. Asymptomatic. COMPARISON: Mammography: Comparison is made with available priors TECHNIQUE: Digital breast mammography with tomosynthesis is performed in both the craniocaudal and mediolateral oblique views along with computer-aided detection (CAD). FINDINGS: There are scattered areas of fibroglandular density (ACR BI-RADS breast composition Category b). There are no significant masses, abnormal calcifications, or other abnormalities. MM/MM tomosynthesis screening BI IMPRESSION: No mammographic evidence of malignancy. ASSESSMENT: BI-RADS BI-RADS 1 - Negative RECOMMENDATION: Routine annual mammography screening. 1 year F/U This examination should not preclude the clinical evaluation of a suspicious palpable abnormality. This patient's information was entered into a reminder system with a target due date for their next mammogram. Electronically signed by: Fatoumata Ralph DO 05/21/2024 04:23 PM TONA
== END 2024-05-14 09:57 | disposition home or self-care (01) ==
LOC: HO.MAMMO 09:56
PROVIDERS: PCP Internal Medicine; Visit Provider Internal Medicine
DX: Z01.419 Encounter for gynecological examination (general) (routine) without abnormal findings (principal); Z12.31 Encounter for screening mammogram for malignant neoplasm of breast
CPT/HCPCS: 77063; 77067; 99396

== ENCOUNTER → 2024-05-14 10:15 | Outpatient (BNV) | payer OTHER, SELFPAY | PROVIDERS: PCP Internal Medicine; Visit Provider Internal Medicine | DX: Z12.31 Encounter for screening mammogram for malignant neoplasm of breast (principal) | CPT/HCPCS: 77063; 77067 ==

== ENCOUNTER 2024-06-18 10:51 | Outpatient (AMB) | payer OTHER, SELFPAY ==
--- NOTE | 2024-06-18 11:35 | MHC.OFFWIV ---
Intake Vital Signs 06/18/24 11:36 Height 5 ft 2 in Weight 240 lb BMI 43.9 BP 126/84 Blood Pressure Location Lt brachial Position Sitting Pulse 86 Pulse Source Pulse Oximeter Temp 98.0 F Temp Source Oral Pulse Oximetry (%) 98 Oxygen Delivery Method Room Air Intake Visit Reasons: EP ? ear infection Intake Note: Patient here for bilat ear pressure which started about 2 weeks ago Patient Tobacco Use Status: Former Tobacco user Allergies No Known Allergies [No Known Allergies*] Allergy (Verified 06/18/24 11:37) Do you need a note to return to daycare/school/sports/work: No HPI EP ? ear infection HPI Details Patient is a 59-year-old female came in today to be evaluated for possible right ear infection Patient has been suffering from respiratory infection for the past 1 week Still have cough mostly at night, patient says that cough is keeping her up at night And she has started to have phlegm as well There is no fever no chills no nausea no vomiting On examination ear exam reveals no infection However due to cough and congestion I have prescribed azithromycin and prednisone 10 mg only for 3 days She may take ibuprofen as well with food. [facility] Medical History Cervical muscle strain Obesity Hypertension GERD (gastroesophageal reflux disease) Anxiety Allergic rhinitis Surgical History History of abdominal surgery Family History Father Diabetes Hypertension Mother Hypertension Renal cancer S/P total abdominal hysterectomy and bilateral salpingo-oophorectomy Sister Depression Brother Substance abuse Depression Alcoholism Drug abuse and dependence Social History Housing: House Alcohol intake: current Alcohol intake frequency: a few times a week Comment: 3x a week3-4 beers Patient Tobacco Use Status: Former Tobacco user Tobacco use type: Cigarette Years Smoked: 2011 e-Cigarette/Vaping Use: Never Used Second Hand Smoke Exposure: No service: No Current occupational status: employed 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 Cognitive needs: No Hearing needs: No Vision needs: Yes (contacts) Review of Systems Const All systems reviewed & are unremarkable except as noted in HPI and below Physical Exam Vital Signs: Last Vital Signs Temp 98.0 F 06/18/24 11:36 Pulse 86 06/18/24 11:36 BP 126/84 06/18/24 11:36 Pulse Ox 98 06/18/24 11:36 Oxygen Delivery Method Room Air 06/18/24 11:36 BMI result Body Mass Index 43.9 Const General: no acute distress Orientation/consciousness: patient oriented x3 HEENT Other: Ear exam within normal limit Eyes General: appearance normal, both eyes and all related structures Resp Effort & Inspection: normal respiratory effort and able to speak in complete sentences Auscultation: clear to auscultation bilaterally Neuro General: patient oriented x3 Psych Mental Status: mental status grossly normal Assessment & Plan Assessment & Plan (1) Respiratory tract congestion with cough: Code(s): R05.8 - Other specified cough Plan Patient is a 59-year-old female came in today to be evaluated for possible right ear infection Patient has been suffering from respiratory infection for the past 1 week Still have cough mostly at night, patient says that cough is keeping her up at night And she has started to have phlegm as well There is no fever no chills no nausea no vomiting On examination ear exam reveals no infection However due to cough and congestion I have prescribed azithromycin and prednisone 10 mg only for 3 days She may take ibuprofen as well with food. Medications: New prednisone 10 mg PO DAILY 3 tabs 0RF 3 days azithromycin Take 2 tablets today then 1 daily 250 mg PO ONCE 6 tabs 0RF 5 days J06.9 - Acute upper respiratory infection, unspecified Coding Level of Care Code Est Pt Level 3 (34238) Diagnoses Respiratory tract congestion with cough R05.8
[2024-06-18 11:36] VITALS: BP 126/84; PULSE 86; TEMP 36.7; O2SAT 98; BMI 43.9
== END 2024-06-18 12:27 | disposition home or self-care (01) ==
PROVIDERS: PCP Internal Medicine; Visit Provider Internal Medicine
DX: R05.8 Other specified cough (principal)

== ENCOUNTER → 2024-06-18 10:51 | Outpatient (BNVA) | payer OTHER, SELFPAY | PROVIDERS: PCP Internal Medicine; Visit Provider Physician Assistant | DX: R05.8 Other specified cough (principal) | CPT/HCPCS: 99212 ==

== ENCOUNTER 2024-08-27 16:38 | Outpatient (AMB) | payer OTHER, SELFPAY ==
--- NOTE | 2024-08-27 16:38 | A.OFFPC_ITS ---
Intake Visit Reasons: FLU Allergies No Known Allergies [No Known Allergies*] Allergy (Verified 08/27/24 16:38) Tobacco use date assessed: 04/02/24 Dental Screening Dental Screen Date: 09/26/23 HPI FLU HPI Details niece had flu and patient , 2 days The patient is a 59-year-old female presenting with an acute viral illness, which she presumes to be influenza. The symptoms began a couple of days ago, by her report, when she experienced severe nausea and vomiting that has since subsided. The initial gastrointestinal symptoms were likely associated with a viral infection her niece contracted, possibly spreading within her household. She reported vomiting approximately 20 times, but this has resolved currently. Now, she primarily experiences headache and diarrhea. In early June, the patient visited an urgent care center and was treated for a cough and acute otitis media with prednisone and Zithromax. Currently, she has declined antiviral treatment with Tamiflu but has been vigilant about hydration using Pedialyte to prevent dehydration as she manages the diarrhea. PENDING SALE TO [facility] Medical History Cervical muscle strain Obesity Hypertension GERD (gastroesophageal reflux disease) Anxiety Allergic rhinitis Surgical History History of abdominal surgery Family History Father Diabetes Hypertension Mother Hypertension Renal cancer S/P total abdominal hysterectomy and bilateral salpingo-oophorectomy Sister Depression Brother Substance abuse Depression Alcoholism Drug abuse and dependence Social History Housing: House Alcohol intake: current Alcohol intake frequency: a few times a week Comment: 3x a week3-4 beers Patient Tobacco Use Status: Former Tobacco user Tobacco use type: Cigarette Years Smoked: 2011 e-Cigarette/Vaping Use: Never Used Second Hand Smoke Exposure: No service: No Current occupational status: employed 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 Cognitive needs: No Hearing needs: No Vision needs: Yes (contacts) Questionnaire Thrive Questionnaire Date Thrive assessed: 08/27/24 I am a: Patient What is your living situation today?: I have a steady place to live Within the past 12 months, did the food you bought not last and you didn't have the money to get more?: Never true Within the past 12 months, did you worry whether your food would run out before you got money to buy more?: Never true Do you have trouble paying for medicines?: No Do you have trouble getting transportation to medical appointments?: No Do you have trouble paying your heating and electricity bill?: No Do you have trouble taking care of your child, family member or friend?: No Do you have trouble with day-to-day activities such as bathing, preparing meals, shopping, managing finances, etc.?: No Are you currently unemployed and looking for a job?: No Are you interested in more education?: No Please select the resources that you would like help with: None Currently or been in a relationship where the following occur: No concerns reported THRIVE Score: 0 JOSEPHINE-7 AMB Questionnaire JOSEPHINE-7 Date JOSEPHINE - 7 assessed: 04/02/24 Source: Developed by Drs. Missael Goyal, Nitza Bernard, Shreyas Frances and colleagues, with an educational bakari from [employer]. Physical exam (Primary Care) Tobacco/Smoking Status: Tobacco use Status Tobacco use date assessed 04/02/24 08/27/24 16:39 Patient Tobacco Use Status Former Tobacco user 08/27/24 16:39 Tobacco use type Cigarette 08/27/24 16:39 e-Cigarette/Vaping Use Never Used 08/27/24 16:39 Thrive Assessment: Date of Thrive Assessment Date Thrive assessed 08/27/24 08/27/24 16:39 Currently or been in a relationship where the following occur: No concerns reported Telehealth Telehealth Location of provider rendering services: practice address Location of patient: address on file Patient Identification confirmed using: Name, : Yes Telehealth method: video Patient verbally consented to treatment: Yes Patient verbally consented to billing insurance company: Yes Patient informed of any privacy concerns related to visit: Yes Minutes spent on Phone/Video with Pt.: 15 Coding Level of Care Code Tele Est Pt Level 3 (76689) Diagnoses Viral illness B34.9 Assessment & Plan Assessment & Plan (1) Viral illness: Code(s): B34.9 - Viral infection, unspecified Category: Medical Plan: Patient presumes influenza as the family member had a diagnosed flu. Patient had fever and nausea which has subsided and now having diarrhea patient has been able to drink fluids and Pedialyte and discussed that dehydration is the problem of the diarrhea and that sometimes probiotic can help also discussed about taking culturelle or align. Advised to rest take Tylenol when needed, keep fluids and call if there is any other problem. Declined Tamiflu Plan - Monitor symptoms of acute viral illness and ensure adequate hydration with Pedialyte. - Consider probiotics such as Culturelle or Align to help with diarrhea. - Reassess the need for antiviral medications such as Tamiflu should symptoms persist or worsen. - Encourage rest and the use of Tylenol for headache management. - Reinforce follow-up if symptoms worsen or persist. During our conversation, we discussed the patient's presentation of symptoms, which suggest an acute viral illness. She presumed influenza based on a household contact. We reviewed the importance of maintaining hydration, especially with ongoing diarrhea, and discussed alternatives like probiotics to aid gastrointestinal recovery. I agreed with her decision to hold off on antiviral medication, considering the improvement in her symptoms, and recommended hydration with Pedialyte. We discussed the use of Tylenol for symptomatic headache relief and advised the patient to rest. I instructed her to contact me if symptoms persist or worsen. - Continue to stay hydrated by drinking plenty of fluids, including Pedialyte. - Rest as much as possible and take Tylenol as needed for headache relief. - Consider probiotics to help manage diarrhea. - Monitor symptoms, and if they worsen, get in touch immediately. - Seek medical attention if there is any new or worsening of symptoms.
--- OUTSIDE RECORDS SUMMARY | 2024-08-27 16:39 | XMS_ITS | Patient Health Record ---
Author Organization [facility] Address [address] [place] [address] Care Team Providers Care Health Assessment And Treatment Teacher Name Role Phone Pushpa Meadows MD Primary Care Provider Missael Lopez [phone] ALLERGIES No Known Allergies REASON FOR REFERRAL No Information MEDICATIONS Medication SIG (Take, Route, Frequency, Duration) Notes Start Date End Date Status Flonase Allergy Relief 50 MCG/ACT 1 spray in each nostril Nasally Once a day for 30 day(s) Active Omeprazole 20 MG 1 capsule Orally Onc e a day Active Losartan Potassium 100 MG 1 tablet Orall y Once a day Active hydroCHLOROthiazide 25 MG 1 tablet in th e morning Orally Once a day Active IMMUNIZATIONS Vaccine Route Administration Date Status Comme nts Influenza Unknown 09/11/2022 Refused SOCIAL HISTORY Sex Assigned At : Social History Observation Description Sex Assigned At Unknown PROBLEMS Problem Type ICD Code Onset Dates Problem Status W/U Status Risk SNOMED Code Notes Problem Gastroesophageal reflux disease, esophagitis presence not specified (K21.9) Active confirmed 251386883 Problem Encounter for screening for malignant neoplasm of colon (Z12.11) Active confirmed 942578228 Problem Encounter for screening for malignant neoplasm of rectum (Z12.12) Active confirmed Screening for malignant neoplasm of rectum (489896797) Problem Hx of adenomatous colonic polyps (Z86.010) Active confirmed 339112036 Problem Screening for colon cancer (Z12.11) Active confirmed 912112994 Problem Diverticulosis of large intestine without perforation or abscess without bleeding (K57.30) Active confirmed Diverticul ar disease of colon (529521006) PLAN OF TREATMENT Pending Test Test Name Order Date Pathology 11/04/2022 Future Test Test Name Order Date UPPER GI ENDOSCOPY 03/22/2016 COLONOSCOPY 03/22/2016 COLONOSCOPY 09/11/2022 Insurance Providers Payer Name Payer Address Payer Phone Subscriber Number Group Number Insured Name Patient Relationship to Insured Coverage Start Date Coverage End Date [facility] [address] [place] [address] [id number] ARLENE LOVE Self - patient is the insured MEDICAL (GENERAL) HISTORY Medical History History ICD Code Denies [place],DM,CVA,Lung disease,renal dise ase Chest pain in 02/2016--in ER- -neg. 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
== END 2024-08-27 17:42 | disposition home or self-care (01) ==
LOC: HO.HMCH 16:38
PROVIDERS: PCP Internal Medicine; Visit Provider Internal Medicine
DX: B34.9 Viral infection, unspecified (principal)

== ENCOUNTER 2024-11-15 12:06 | Outpatient (REF) | payer OTHER, SELFPAY ==
--- NOTE | ~2024-11-15 | XR_ITS ---
EXAMINATION: XR CHEST 2 VIEWS HISTORY: R05.2 - Subacute cough COMPARISON: Comparison is made with the prior examination dated 10/28/2017. FINDINGS: PA and lateral views of the chest are submitted. There is patchy airspace opacity in the right upper lobe compatible with pneumonia. The left lung is clear. There is no pleural effusion, pneumothorax, or pulmonary vascular congestion. The heart is normal in size. The aorta is calcified. There are old healed left rib fractures. There is degenerative disc disease of the spine. XR/XR chest 2V IMPRESSION: Right upper lobe pneumonia. Follow-up is recommended to document resolution. Electronically signed by: Missael Estes MD 11/15/2024 02:14 PM EDT RP
== END 2024-11-15 12:07 | disposition home or self-care (01) ==
LOC: HO.HMGCX 12:06
PROVIDERS: PCP Internal Medicine; Visit Provider Nurse Practitioner Family
DX: R05.2 Subacute cough (principal); R42 Dizziness and giddiness
CPT/HCPCS: 71046; 99212

== ENCOUNTER 2024-11-15 12:06 | Outpatient (AMB) | payer OTHER, SELFPAY ==
[2024-11-15 13:00] VITALS: BP 114/78; PULSE 113; TEMP 37.6; O2SAT 98
--- NOTE | 2024-11-15 13:00 | AM.OFFWIN_ITS ---
Intake Vital Signs 11/15/24 13:00 Weight 239 lb BP 114/78 Blood Pressure Location Lt brachial Position Sitting Pulse 113 H Pulse Source Pulse Oximeter Temp 99.6 F Temp Source Oral Pulse Oximetry (%) 98 Oxygen Delivery Method Room Air Intake Visit Reasons: EP Cough for months, vertigo Intake Note: Patient here for cough, vertigo that has been going on for a while now. Patient Tobacco Use Status: Former Tobacco user Allergies No Known Allergies [No Known Allergies*] Allergy (Verified 11/15/24 13:10) Do you need a note to return to daycare/school/sports/work: No HPI HPI Comments History of Present Illness Details 59 y/o Female patient who presents to [facility] walk [facility] with c/o cough for 2 weeks. C/o Cough, chest tightness/congestion, Nasal congestion, headaches and Vertigo. She was seen here 08/2024 for similar symptoms, was given Z-pack. Pt reports that cough went away for few weeks, then returned with wheezing and SOB. [facility] Medical History (Updated 11/15/24 @ 13:49 by Reba Thomason NP) Cough Cervical muscle strain Obesity Hypertension GERD (gastroesophageal reflux disease) Anxiety Allergic rhinitis Surgical History History of abdominal surgery Family History Father Diabetes Hypertension Mother Hypertension Renal cancer S/P total abdominal hysterectomy and bilateral salpingo-oophorectomy Sister Depression Brother Substance abuse Depression Alcoholism Drug abuse and dependence Social History Housing: House Alcohol intake: current Alcohol intake frequency: a few times a week Comment: 3x a week3-4 beers Patient Tobacco Use Status: Former Tobacco user Tobacco use type: Cigarette Years Smoked: 2011 e-Cigarette/Vaping Use: Never Used Second Hand Smoke Exposure: No service: No Current occupational status: employed 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 Cognitive needs: No Hearing needs: No Vision needs: Yes (contacts) Review of Systems Const All systems reviewed & are unremarkable except as noted in HPI and below Physical Exam Vital Signs: Last Vital Signs Temp 99.6 F 11/15/24 13:00 Pulse 113 H 11/15/24 13:00 BP 114/78 11/15/24 13:00 Pulse Ox 98 11/15/24 13:00 Oxygen Delivery Method Room Air 11/15/24 13:00 Const General: no acute distress Nutritional Appearance: obese morbidly obese Orientation/consciousness: patient oriented x3 HEENT Head: Yes normocephalic Ears: external ears normal and TM abnormal with fluid behind the TM bilateral General nose exam: Normal external nose present Mouth: moist mucous membranes Throat: Yes uvula midline Resp Effort & Inspection: normal respiratory effort, able to speak in complete sentences and Actively coughing Auscultation: no crackles, no rales, rhonchi and wheezes Cardio Rhythm: regular rhythm Heart sounds: S1 normal heart sound present and S2 normal heart sound present Neuro General: patient oriented x3 Assessment & Plan Assessment & Plan (1) Cough: Code(s): R05.9 - Cough, unspecified Qualifiers: Cough type: subacute Qualified Code(s): R05.2 - Subacute cough Plan: Ordered Chest Xray Ordered Prednisone and Doxy Ordered Albuterol rescue inhaler for SOB Orders: Orders XR chest 2V Today R05.2 - Subacute cough Medications: New doxycycline hyclate 100 mg PO BID 10 days 20 caps 0RF R05.2 - Subacute cough prednisone 20 mg PO DAILY 5 tabs 0RF R05.2 - Subacute cough albuterol sulfate 90 mcg/actuation 2 puffs inhalation Q4-6H PRN 6.7 grams 0RF shortness of breath or wheezing R06.2 - Wheezing benzonatate 200 mg (2 x 100 mg) PO BID 60 caps 0RF R05.2 - Subacute cough Coding Level of Care Code Est Pt Level 4 (11906) Diagnoses Subacute cough R05.2 Cough type: subacute Time Spent (min) 20
--- OUTSIDE RECORDS SUMMARY | 2024-11-15 13:43 | XMS_ITS | Patient Health Record ---
Author Organization [facility] Address [address] [place] [address] Care Team Providers Care Office Services Associate Name Role Phone Pushpa Meadows MD Primary Care Provider Missael Lopez [phone] Allergies No Known Allergies Reason For Referral No Information Medications Medication SIG (Take, Route, Frequency, Duration) Notes [...] e morning Orally Once a day Active Immunizations Vaccine Route Administration Date Status Comme nts Influenza Unknown 09/11/2022 Refused Problems Problem Type SNOMED Code ICD Code Onset Dates Problem Status W/U Status Risk Notes Problem [id number] Encounter for screening for malignant neoplasm of colon (Z12.11) Active confirmed Problem Diverticulosis o f large intestine without perforation or abscess without bleeding (K57.30) Active confirmed Problem Screening for malignant neoplasm of rectum (189658114) Encounter for screening for malignant neoplasm of rectum (Z12.12) Active confirmed Problem 634696653 Gastroesophageal reflux disease, esophagitis presence not specified (K21.9) Active confirmed Problem 872134247 Screening for co owen cancer (Z12.11) Active confirmed Problem 453996198 Hx of adenomatou s colonic polyps (Z86.010) Active confirmed Plan Of Treatment Pending Test Test Name Order Date Pathology 11/04/2022 Future Test Test Name Order Date UPPER GI ENDOSCOPY 03/22/2016 COLONOSCOPY 03/22/2016 COLONOSCOPY 09/11/2022 Insurance Providers Payer Name Payer Address Payer Phone Subscriber Number Group Number Insured Name Patient Relationship to Insured Coverage Start Date Coverage End Date [facility] [address] [place] [address] [phone] [id number] ARLENE LOVE Self - patient is the insured Medical (General) History Medical History History ICD Code Denies [place],DM,CVA,Lung disease,renal dise ase Chest pain in 02/2016--in ER- -neg. 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
== END 2024-11-15 14:19 | disposition home or self-care (01) ==
PROVIDERS: PCP Internal Medicine; Visit Provider Nurse Practitioner Family
DX: R05.2 Subacute cough (principal)

== ENCOUNTER → 2024-11-15 13:57 | Outpatient (BNV) | payer OTHER, SELFPAY | PROVIDERS: PCP Internal Medicine; Visit Provider Radiology Diagnostic Radiology | DX: J18.1 Lobar pneumonia, unspecified organism (principal) | CPT/HCPCS: 71046 ==

== ENCOUNTER 2025-02-10 08:42 | Outpatient (AMB) | payer OTHER, SELFPAY ==
[2025-02-10 08:51] VITALS: BP 124/80; PULSE 92; TEMP 36.6; O2SAT 98; BMI 41.9
--- NOTE | 2025-02-10 08:51 | AM.OFFWIN_ITS ---
Intake Vital Signs 02/10/25 08:51 Height 5 ft 2 in Weight 229 lb BMI 41.9 BP 124/80 Blood Pressure Location Lt brachial Position Sitting Pulse 92 Pulse Source Pulse Oximeter Temp 97.9 F Temp Source Oral Pulse Oximetry (%) 98 Oxygen Delivery Method Room Air Intake Visit Reasons: EP coughing from pneumonia since November Intake Note: presents with persistent barking cough for months s/p pneumonia and also c/o watery eyes Patient Tobacco Use Status: Former Tobacco user Allergies No Known Allergies (No Known Allergies*) Allergy (Verified 02/10/25 08:56) Do you need a note to return to daycare/school/sports/work: No HPI HPI Comments History of Present Illness Details History of Present Illness - The patient is a 60-year-old female pr esenting with a persistent cough following pneumonia. - Pneumonia was diagnosed in November via [address] st x-ray and treated with doxycycline an d another antibiotic, possibly azithromycin. - No follow-up chest x-ray was conducted to ensure resolution. - The cough is described as barking, w ith clear sputum and minimal expectoration. - The patient uses an inhaler an d reports malfunction of the current inhaler. - Previous prescriptions include prednis one and an inhaler, with limited efficacy. - Watery eyes are noted, and Flonase is used for allergy management. - Concerns about benzonatate side effect s were addressed, confirming its safety. - She denies fever, chills, CP, SOB, whe ezing, abd pain, n/v/d. She has no sick contacts. Physical Exam General: Cooperative, healthy appearing, comfortable, no acute distress and well developed Head: Normal to inspection Ears: Hearing grossly normal bilaterally Nose: Normal external nose present Face and sinus: Normal facial exam. No sinus tenderness noted. Eyes: Appearance normal, both eyes and all related structures, but noted watery eyes Neck: Normal visual inspection and Yes full ROM. No lymphadenopathy noted. Respiratory: Normal respiratory effort and able to speak in complete sentences. Clear to auscultation bilaterally. No w/r/r noted. Cardiovascular: Regular rate and rhythm. Normal S1 and S2. No m/r/g noted. Skin: No rashes or lesions noted Patient was informed and verbally consented to the use of an ambient scribe for clinic note documentation during this visit. [facility] Medical History (Updated 11/15/24 @ 14:23 by Reba Thomason NP) Community acquired bacterial pneumonia Cough Cervical muscle strain Obesity Hypertension GERD (gastroesophageal reflux disease) Anxiety Allergic rhinitis Surgical History History of abdominal surgery Family History Father Diabetes Hypertension Mother Hypertension Renal cancer S/P total abdominal hysterectomy and bilateral salpingo-oophorectomy Sister Depression Brother Substance abuse Depression Alcoholism Drug abuse and dependence Social History Housing: House Alcohol intake: current Alcohol intake frequency: a few times a week Comment: 3x a week3-4 beers Patient Tobacco Use Status: Former Tobacco user Tobacco use type: Cigarette Years Smoked: 2011 e-Cigarette/Vaping Use: Never Used Second Hand Smoke Exposure: No service: No 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 occupational status: employed 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 Cognitive needs: No Hearing needs: No Vision needs: Yes (contacts) Review of Systems Const All systems reviewed & are unremarkable except as noted in HPI and below Physical Exam Vital Signs: Last Vital Signs Temp 97.9 F 02/10/25 08:51 Pulse 92 02/10/25 08:51 BP 124/80 02/10/25 08:51 Pulse Ox 98 02/10/25 08:51 Oxygen Delivery Method Room Air 02/10/25 08:51 BMI result Body Mass Index 41.9 Results Reviewed Results Reviewed: Reviewed the CXR in the office Assessment & Plan Assessment & Plan (1) Cough: Code(s): R05.9 - Cough, unspecified Qualifiers: Cough type: subacute Qualified Code(s): R05.2 - Subacute cough Plan Most likely URI vs CAP vs covid vs RSV vs flu vs viral illness vs allergic rhinitis l Plan - A repeat chest x-ray is advised to ensure pneumonia resolution. - Consideration of a respiratory panel to exclude other infections. - Prescriptions for cough suppressant, prednisone, and allergy medication will be issued. - Follow-up will occur if pneumonia is detected on the x-ray, with antibiotics prescribed as needed. Orders: Orders Resp Pathogen Panel - [facility] Today J06.9 - Acute upper respiratory infection, unspecified XR chest 2V Today R05.9 - Cough, unspecified Coding Level of Care Code Est Pt Level 4 (83850) Diagnoses Subacute cough R05.2 Cough type: subacute
--- OUTSIDE RECORDS SUMMARY | 2025-02-10 08:54 | XMS_ITS | Patient Health Record ---
Author Organization [facility] Address [address] [place] [address] Care Team Providers Care Fire Engine Pump Operator Name Role Phone Pushpa Meadows MD Primary Care Provider Missael Lopez [phone] Allergies No Known Allergies Reason For Referral [...] Problem Status W/U Status Risk Notes Problem 753166365 Encounter for screening for malignant neoplasm of colon (Z12.11) Active confirmed Problem Diverticulosis o f large intestine without perforation or abscess without bleeding (K57.30) Active confirmed Problem Screening for malignant neoplasm of rectum (493705503) Encounter for screening for malignant neoplasm of rectum (Z12.12) Active confirmed Problem 477935340 Gastroesophageal reflux disease, esophagitis presence not specified (K21.9) Active confirmed Problem 036196701 Screening for co owen cancer (Z12.11) Active confirmed Problem 000883567 Hx of adenomatou s colonic polyps (Z86.010) Active confirmed Plan Of Treatment Pending Test Test Name Order Date Pathology 11/04/2022 Future Test Test Name Order Date UPPER GI ENDOSCOPY 03/22/2016 COLONOSCOPY 03/22/2016 COLONOSCOPY 09/11/2022 Insurance Providers Payer Name Payer Address Payer Phone Subscriber Number Group Number Insured Name Patient Relationship to Insured Coverage Start Date Coverage End Date [facility] [address] [place] [address] [id number] ARLENE LOVE Self - patient is the insured Medical (General) History Medical History History ICD Code Denies [place],DM,CVA,Lung disease,renal dise ase Chest pain in 02/2016--in ER- -neg. 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
== END 2025-02-10 09:59 | disposition home or self-care (01) ==
PROVIDERS: PCP Internal Medicine; Visit Provider Physician Assistant Medical
DX: R05.2 Subacute cough (principal)

== ENCOUNTER 2025-02-10 08:42 | Outpatient (REF) | payer OTHER, SELFPAY ==
--- NOTE | ~2025-02-10 | XR_ITS ---
EXAMINATION: XR CHEST CLINICAL INFORMATION: R05.9 - Cough, unspecified COMPARISON: November 15, 2024 TECHNIQUE: 2 views of the chest were obtained. FINDINGS: No significant abnormality is noted involving the heart, lungs, mediastinum, bony thorax or soft tissues. XR/XR chest 2V IMPRESSION: Unremarkable examination. Interval resolution of focal opacity in the right upper lung zone. Electronically signed by: Shamir Sandy MD 02/10/2025 09:55 AM EDT
[2025-02-10 14:14] LABS: Chlamydia pneumoniae PCR Not Detected (Not Detect.); Coronavirus 229E PCR Not Detected (Not Detect.); Coronavirus HKU1 PCR Not Detected (Not Detect.); Coronavirus NL63 PCR Not Detected (Not Detect.); Coronavirus OC43 PCR Not Detected (Not Detect.); RSV PCR Not Detected (Not Detect.); Rhino/Enterovirus PCR Not Detected (Not Detect.)
[2025-02-10 14:16] LABS: Influenza A H1 PCR Not Detected (Not Detect.); Influenza A H1-2009 PCR Not Detected (Not Detect.); Influenza A H3 PCR Not Detected (Not Detect.); SARS-CoV-2 PCR Not Detected (Not Detect.)
== END 2025-02-10 08:43 | disposition home or self-care (01) ==
LOC: HO.HMGCX 08:42
PROVIDERS: PCP Internal Medicine; Visit Provider Physician Assistant Medical
DX: J06.9 Acute upper respiratory infection, unspecified (principal); R05.2 Subacute cough; Z87.01 Personal history of pneumonia (recurrent); Z87.891 Personal history of nicotine dependence
CPT/HCPCS: 71046; 87633; 99212

== ENCOUNTER → 2025-02-10 09:38 | Outpatient (BNV) | payer OTHER, SELFPAY | PROVIDERS: PCP Internal Medicine; Visit Provider Radiology Diagnostic Radiology | DX: R05.3 Chronic cough (principal) | CPT/HCPCS: 71046 ==

== ENCOUNTER 2025-03-03 15:02 | Outpatient (REF) | payer OTHER, SELFPAY ==
--- NOTE | ~2025-03-03 | XR_ITS ---
EXAMINATION: XR CHEST CLINICAL INFORMATION: R05.3 - Chronic cough COMPARISON: None available. TECHNIQUE: 2 views of the chest were obtained. FINDINGS: Faint nodularity is noted in the right apex. Lungs are clear otherwise. Heart size is within normal limits. There is no pleural effusion. XR/XR chest 2V IMPRESSION: Faint nodularity right apex could represent pneumonia, reactivation tuberculosis is not ruled out. Electronically signed by: Shamir Sandy MD 03/03/2025 04:25 PM EDT
== END 2025-03-03 15:03 | disposition home or self-care (01) ==
LOC: HO.XRAY 15:02
PROVIDERS: PCP Internal Medicine
DX: R05.3 Chronic cough (principal); K21.9 Gastro-esophageal reflux disease without esophagitis; I10 Essential (primary) hypertension; E11.9 Type 2 diabetes mellitus without complications; Z87.01 Personal history of pneumonia (recurrent)
CPT/HCPCS: 71046; 94640; 99212

== ENCOUNTER 2025-03-03 15:02 | Outpatient (AMB) | payer OTHER, SELFPAY ==
--- OUTSIDE RECORDS SUMMARY | 2025-03-03 15:06 | XMS_ITS | Patient Health Record ---
Author Organization [facility] Address [address] [place] [address] Care Team Providers Care Commercial Analyst Name Role Phone Pushpa Meadows MD Primary Care Provider Missael Lopez [phone] Allergies No Known Allergies Reason For Referral [...] Problem Status W/U Status Risk Notes Problem 701849725 Encounter for screening for malignant neoplasm of colon (Z12.11) Active confirmed Problem Diverticulosis o f large intestine without perforation or abscess without bleeding (K57.30) Active confirmed Problem Screening for malignant neoplasm of rectum (367045488) Encounter for screening for malignant neoplasm of rectum (Z12.12) Active confirmed Problem 876597745 Gastroesophageal reflux disease, esophagitis presence not specified (K21.9) Active confirmed Problem 145023058 Screening for co owen cancer (Z12.11) Active confirmed Problem 470030252 Hx of adenomatou s colonic polyps (Z86.010) Active confirmed Plan Of Treatment Pending Test Test Name Order Date Pathology 11/04/2022 Future Test Test Name Order Date UPPER GI ENDOSCOPY 03/22/2016 COLONOSCOPY 03/22/2016 COLONOSCOPY 09/11/2022 Insurance Providers Payer Name Payer Address Payer Phone Subscriber Number Group Number Insured Name Patient Relationship to Insured Coverage Start Date Coverage End Date [facility] [address] [place] [address] [id number] ARLENE LOVE Self - patient is the insured Medical (General) History Medical History History ICD Code Denies [place],DM,CVA,Lung disease,renal dise ase Chest pain in 02/2016--in ER- -neg. 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
--- NOTE | 2025-03-03 15:10 | A.OFFPC_ITS ---
Vital Signs 03/03/25 15:11 Height 5 ft 2 in Weight 227 lb 4 oz BMI 41.6 BP 140/70 H Blood Pressure Location Lt brachial Position Sitting Pulse 97 Pulse Source Pulse Oximeter Temp 97.1 F Temp Source Temporal Artery Scan Pulse Oximetry (%) 99 Oxygen Delivery Method Room Air Intake Visit Reasons: ? pneumonia Intake Note: Patient is here to follow up on Pneumonia? Car Whacker Required: No Womens Volleyball Coach: Not Required per policy Accompanied by: Self / Same As Patient Allergies No Known Allergies (No Known Allergies*) Allergy (Verified 03/03/25 15:11) Medication List - Last Reconciled 03/03/25 by Ria Encarnacion PA-C albuterol sulfate 90 mcg/actuation 2 puffs inhalation Q4-6H PRN alprazolam 0.25 mg PO DAILY PRN blood sugar diagnostic (FreeStyle Lite Strips) As directed check the BS QD blood-glucose meter (FreeStyle Lite Meter kit) As directed check the BS QD cetirizine-pseudoephedrine 5-120 mg ER 1 tab PO BID PRN 7 days fluticasone propionate 50 mcg/actuation (Flonase Allergy Relief) 2 sprays intranasal DAILY hydrochlorothiazide 25 mg PO QAM ibuprofen 800 mg PO TID PRN lancets (FreeStyle Lancets) As directed check BS QD losartan 50 mg PO DAILY omeprazole 20 mg PO DAILY Tobacco use date assessed: 03/03/25 Dental Screening Dental Screen Date: 03/03/25 Did you have a dental visit in the last 12 months?: Yes Did you have a dental problem in the last 6 months where you did not have access to dental care?: No Was dental information given to patient?: Patient has dentist HPI ? pneumonia HPI Details 60 year old female with past medical his tory of GERD, hypertension, obesity, diabetes mellitus, hypercholesterolemia, generalized anxiety disorder last seen 08/2024 coming in for acute problem. Presenting with a persistent cough following pneumonia. Pneumonia was diagnosed at a walk-in clinic, confirmed by chest x-ray, and is currently resolving. The cough persists despite the resolution of pneumonia, with no fever or chest pain reported. The cough is hacking, with occasional clear sputum, and worsens upon waking. Treatments tried include prednisone and benzonatate, with no relief. Wheezing is present, and a breathing treatment has been advised. Allergic reactions include rashes and dry patches, suggesting possible allergies. [facility] Medical History Community acquired bacterial pneumonia Cough Cervical muscle strain Obesity Hypertension GERD (gastroesophageal reflux disease) Anxiety Allergic rhinitis Surgical History History of abdominal surgery Family History Father Diabetes Hypertension Mother Hypertension Renal cancer S/P total abdominal hysterectomy and bilateral salpingo-oophorectomy Sister Depression Brother Substance abuse Depression Alcoholism Drug abuse and dependence Social History Housing: House Alcohol intake: current Alcohol intake frequency: a few times a week Comment: 3x a week3-4 telly Patient Tobacco Use Status: Former Tobacco user Tobacco use type: Cigarette Years Smoked: 2011 e-Cigarette/Vaping Use: Never Used Second Hand Smoke Exposure: Yes service: No Current occupational status: employed 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 1. Little interest or pleasure in doing things: not at all 2. Feeling down, depressed, or hopeless: not at all 3. Trouble falling or staying asleep, or sleeping too much: not at all 4. Feeling tired or having little energy: not at all 5. Poor appetite or overeating: not at all 6. Feeling bad about yourself - or that you are a failure or have let yourself or your family down: not at all 7. Trouble concentrating on things, such as reading the newspaper or watching television: not at all 8. Moving or speaking so slowly that other people could have noticed. Or the opposite - being so fidgety or restless that you have been moving around a lot more than usual: not at all 9. Thoughts that you would be better off or of hurting yourself in some way: not at all Total score: 0 Depression Screening Interpretation: Negative Depression Screening Done: Yes Source: Developed by Nitza Sanches.W. Marco Antonio, Shreyas Frances and colleagues, with an educational bakari from [employer]. Thrive Questionnaire Date Thrive assessed: 08/27/24 I am a: Patient What is your living situation today?: I have a steady place to live Within the past 12 months, did the food you bought not last and you didn't have the money to get more?: Never true Within the past 12 months, did you worry whether your food would run out before you got money to buy more?: Never true Do you have trouble paying for medicines?: No Do you have trouble getting transportation to medical appointments?: No Do you have trouble paying your heating and electricity bill?: No Do you have trouble taking care of your child, family member or friend?: No Do you have trouble with day-to-day activities such as bathing, preparing meals, shopping, managing finances, etc.?: No Are you currently unemployed and looking for a job?: No Are you interested in more education?: No Please select the resources that you would like help with: None Currently or been in a relationship where the following occur: No concerns reported THRIVE Score: 0 AUDIT C Alcohol Use Questionnaire (AUDIT-C) 1. How often do you have a drink containing alcohol?: 2-4 times a month 2. How many drinks containing alcohol do you have on a typical day when you are drinking?: 5 or 6 3. How often do you have six or more drinks on one occasion?: Monthly Total Score: 6 JOSEPHINE-7 AMB Questionnaire JOSEPHINE-7 Date JOSEPHINE - 7 assessed: 03/03/25 Feeling nervous, anxious, or on edge: 0 = Not at all Not being able to stop or control worryin = Not at all Worrying too much about different things: 0 = Not at all Trouble relaxin = Not at all Being so restless that it is hard to sit still: 0 = Not at all Becoming easily annoyed or irritable: 0 = Not at all Feeling afraid as if something awful might happen: 0 = Not at all Total JOSEPHINE-7 score (0-4 normal; 5-9 mild; 10-14 moderate; 15-21 severe): 0 Source: Developed by Drs. Missael Goyal, Nitza Bernard, Shreyas Franecs and colleagues, with an educational bakari from [employer]. Review of Systems Const Denies body aches, Denies chills, Denies fever(s), Denies headache(s) and Denies poor appetite Eyes Reports no additional complaints ENT Denies dizziness and Denies headache(s) Card Denies chest pain, Denies edema, Denies lightheadedness and Denies dyspnea Resp Reports cough and Denies dyspnea GI Denies abdominal pain, Denies constipation, Denies diarrhea, Denies nausea and Denies vomiting Reports no additional complaints Musc Reports no additional complaints and Denies abnormal gait Skin/Breast Reports system reviewed and no additional complaints, except as documented Neuro Denies abnormal gait, Denies dizziness and Denies headache(s) Psych Reports no additional complaints Physical exam (Primary Care) Vital Signs: Last Vital Signs Temp 97.1 F 03/03/25 15:11 Pulse 97 03/03/25 15:11 BP 140/70 H 03/03/25 15:11 Pulse Ox 99 03/03/25 15:11 Oxygen Delivery Method Room Air 03/03/25 15:11 BMI result Body Mass Index 41.6 Tobacco/Smoking Status: Tobacco use Status Tobacco use date assessed 03/03/25 03/03/25 15:14 Patient Tobacco Use Status Former Tobacco user 03/03/25 15:14 Tobacco use type Cigarette 03/03/25 15:14 e-Cigarette/Vaping Use Never Used 03/03/25 15:14 PHQ-9: PHQ-9 Score PHQ-9: Total score 0 03/03/25 15:14 Depression Screening Interpretation: Negative Thrive Assessment: Date of Thrive Assessment Date Thrive assessed 08/27/24 03/03/25 15:14 Currently or been in a relationship where the following occur: No concerns reported Const General: cooperative, healthy appearing, comfortable and no acute distress Orientation/consciousness: patient oriented x3 HENMT Head: Yes normocephalic Ears: hearing grossly normal bilaterally General nose exam: Normal external nose present Eyes General: appearance normal, both eyes and all related structures Conjunctivae: conjunctivae normal Neck Neck: Yes full ROM and Yes no lymphadenopathy Resp Effort & Inspection: normal respiratory effort Auscultation: clear to auscultation bilaterally, no crackles, rales bilateral, rhonchi lower bilaterally and wheezes expiratory wheezes Cardio Rate: regular rate Rhythm: regular rhythm Skin General skin exam: no rashes or lesions noted Neuro General: patient oriented x3 Gait exam (Neuro): Normal gait present Extrem General: Yes normal to inspection, Yes full ROM and No edema Psych Affect: normal affect Attitude: cooperative Insight: Good insight present (Psych) Judgement: Good judgement present (Psych) Office Procedures Nebulizer Treatment Nebulizer Treatment Details: Patient received a nebulizer treatment while in the office of [facility]. SpO2 remain the same however wheezing improved in bilateral lungs after treatment. 69944-Yfreqavfg/MDI RX initial, or Nebulizer Subsequent Treatment Coding Level of Care Code Est Pt Level 4 (98400) Diagnoses Persistent cough R05.3 CPT Codes Nebulizer Treatment - Nebulizer Treatment, initial or subsequent: 26047- Nebulizer/MDI RX initial, or Nebulizer Subsequent Treatment ([id number]) Assessment & Plan Assessment & Plan (1) Persistent cough: Code(s): R05.3 - Chronic cough Category: Medical Plan: Plan for a multifactorial approach. Chest x-ray was ordered for further evaluation for pneumonia. Advised the patient to continue to use Mucinex as it as an expectorant and avoid cough medications that may exacerbate hypertension and reviewed these with the patient. She did receive a nebulizer treatment while in the office today and wheezing did improve however she does remain with rhonchi and rales in bilateral lungs. Plan for pulmonary function test for further evaluation and referral to pulmonology as well. Also referral placed for flexographic press set up operator today. Plan This note was constructed using voice recognition software. While every effort has been made to ensure accuracy and aml analyst, still areas may have been included sometimes these areas may affect the content or meeting of the given symptoms. Total time spent caring for the patient today was 30 minutes. This includes time spent before the visit reviewing the chart, time spent during the visit, and time spent after the visit and documentation. Patient was informed and verbally consented to the use of an ambient scribe for clinic note documentation during this visit. Orders: Orders XR chest 2V Today R05.3 - Chronic cough PFT pulmonary function test Today R05.3 - Chronic cough Referrals Allergy & Immunology Referral J30.9 - Allergic rhinitis, unspecified, R05.3 - Chronic cough Pulmonology Referral R05.3 - Chronic cough
[2025-03-03 15:11] VITALS: BP 140/70; PULSE 97; TEMP 36.2; O2SAT 99; BMI 41.6
== END 2025-03-03 16:03 | disposition home or self-care (01) ==
LOC: HO.HMCH 15:03
PROVIDERS: PCP Internal Medicine
DX: R05.3 Chronic cough (principal)

== ENCOUNTER → 2025-03-03 16:12 | Outpatient (BNV) | payer OTHER, SELFPAY | PROVIDERS: PCP Internal Medicine; Visit Provider Radiology Diagnostic Radiology | DX: R05.3 Chronic cough (principal) | CPT/HCPCS: 71046 ==

== ENCOUNTER 2025-03-05 09:47 | Outpatient (REF) | payer OTHER, SELFPAY | END 2025-03-05 09:48 | disposition home or self-care (01) | LOC: HO.LAB 09:47 | PROVIDERS: PCP Internal Medicine | DX: Z13.89 Encounter for screening for other disorder (principal) ==

== ENCOUNTER 2025-03-08 07:27 | Outpatient (REF) | payer OTHER, SELFPAY ==
[2025-03-08 10:16] LABS: MANUAL DIFF FLAG NO
[2025-03-08 10:19] LABS: Hematocrit 44.3 % (37.0-47.0); Hemoglobin 14.6 g/dl (12.0-16.0); Imm Gran Abs Auto 0.04 X10*3/uL (0.00-0.03); Imm Gran Pct Auto 0.4 % (0.0-0.4); Lymphocytes Absolute Auto 2.8 X10*3/uL (1.2-4.9); Mean Corpuscular HGB Conc 33.0 g/dl (31.0-35.0); Mean Corpuscular Hemoglobin 29.5 pg (27.0-33.0); Mean Corpuscular Volume 89.5 fL (80.0-98.0); NRBC Abs Auto 0.000 X10*3/uL (0.0-0.012); NRBC Pct Auto 0.0 /100WBC (0.0-0.2); Platelet Count 333 X10*3/uL (160-400); Red Blood Count 4.95 X10*6/uL (4.20-5.50); White Blood Count 10.8 X10*3/uL (4.8-10.8)
[2025-03-08 10:43] LABS: Alanine Aminotransferase 21 U/L (0-31); Albumin Level 4.3 g/dL (3.5-5.0); Alkaline Phosphatase 88 U/L (39-117); Anion Gap 13 (12-20); Aspartate Amino Transferase 20 U/L (5-31); Blood Urea Nitrogen 20 mg/dL (9-16); Calcium 9.4 mg/dL (8.4-10.2); Carbon Dioxide 28 mmol/L (22-29); Chloride 104 mmol/L (96-108); Estimated Glomerular Filt Rate > 60; Potassium 4.1 mmol/L (3.3-5.1); Sodium 141 mmol/L (135-145); Total Protein 7.5 g/dL (6.5-8.0)
[2025-03-11 18:24] LABS: TS Negative Control Passed; TS Panel A 0; TS Panel B 0; TS Positive Control Passed; TSpotTB Negative (Negative)
== END 2025-03-08 07:28 | disposition home or self-care (01) ==
LOC: HO.HMGCLDS 07:27
PROVIDERS: PCP Internal Medicine
DX: Z00.00 Encounter for general adult medical examination without abnormal findings (principal); R05.2 Subacute cough; R05.3 Chronic cough
CPT/HCPCS: 36415; 80053; 85025; 86481

== ENCOUNTER 2025-03-31 12:24 | Outpatient (REF) | payer OTHER, SELFPAY ==
[2025-03-31 13:04] LABS: MANUAL DIFF FLAG NO
[2025-03-31 13:46] LABS: Hematocrit 42.2 % (37.0-47.0); Hemoglobin 14.0 g/dl (12.0-16.0); Imm Gran Abs Auto 0.06 X10*3/uL (0.00-0.03); Imm Gran Pct Auto 0.9 % (0.0-0.4); Lymphocytes Absolute Auto 2.1 X10*3/uL (1.2-4.9); Mean Corpuscular HGB Conc 33.2 g/dl (31.0-35.0); Mean Corpuscular Hemoglobin 29.5 pg (27.0-33.0); Mean Corpuscular Volume 89.0 fL (80.0-98.0); NRBC Abs Auto 0.000 X10*3/uL (0.0-0.012); NRBC Pct Auto 0.0 /100WBC (0.0-0.2); Platelet Count 249 X10*3/uL (160-400); Red Blood Count 4.74 X10*6/uL (4.20-5.50); White Blood Count 6.9 X10*3/uL (4.8-10.8)
[2025-03-31 14:11] LABS: Alanine Aminotransferase 28 U/L (0-31); Albumin Level 4.3 g/dL (3.5-5.0); Alkaline Phosphatase 83 U/L (39-117); Anion Gap 11 (12-20); Aspartate Amino Transferase 22 U/L (5-31); Blood Urea Nitrogen 14 mg/dL (9-16); Calcium 9.1 mg/dL (8.4-10.2); Carbon Dioxide 30 mmol/L (22-29); Chloride 104 mmol/L (96-108); Estimated Glomerular Filt Rate > 60; Potassium 3.4 mmol/L (3.3-5.1); Sodium 142 mmol/L (135-145); Total Protein 7.2 g/dL (6.5-8.0)
[2025-04-01 05:18] LABS: Immunoglobulin A 276 mg/dL (47-310); Immunoglobulin M 83 mg/dL (50-300)
[2025-04-01 15:38] LABS: Immunoglobulin G Subclass 1 577 mg/dL (382-929); Immunoglobulin G Subclass 2 361 mg/dL (241-700); Immunoglobulin G Subclass 3 34 mg/dL (22-178); Immunoglobulin G Subclass 4 55.6 mg/dL (4-86); Immunoglobulin G Total 1046 mg/dL (600-1640)
[2025-04-01 21:33] LABS: Prot Elec - Albumin 4.0 g/dL (3.8-4.8); Prot Elec - Alpha1 0.3 g/dL (0.2-0.3); Prot Elec - Alpha2 0.7 g/dL (0.5-0.9); Prot Elec - Beta 1 0.4 g/dL (0.4-0.6); Prot Elec - Beta 2 0.4 g/dL (0.2-0.5); Prot Elec - Gamma 1.1 g/dL (0.8-1.7); Prot Elec - Total Protein 6.9 g/dL (6.1-8.1)
== END 2025-03-31 12:25 | disposition home or self-care (01) ==
LOC: HO.LAB 12:24
PROVIDERS: PCP Internal Medicine; Visit Provider Nurse Practitioner Family
DX: Z01.84 Encounter for antibody response examination (principal); L50.2 Urticaria due to cold and heat; D50.9 Iron deficiency anemia, unspecified
CPT/HCPCS: 80053; 82784; 84165; 85025; 86160; 86317; 86355; 86359

== ENCOUNTER 2025-04-07 14:07 | Outpatient (AMB) | payer OTHER, SELFPAY ==
[2025-04-07 14:15] VITALS: BP 120/78; PULSE 80; O2SAT 97; BMI 41.1
--- NOTE | 2025-04-07 14:15 | MHC.OFFVIS ---
Vital Signs 04/07/25 14:15 Height 5 ft 2 in Weight 224 lb 13.944 oz BMI 41.1 BP 120/78 Blood Pressure Location Lt brachial Position Sitting Pulse 80 Pulse Source Pulse Oximeter Pulse Oximetry (%) 97 Oxygen Delivery Method Room Air Intake Visit Reasons: Cough/Unspecified bacterial pneumonia Intake Note: pt is here as a new patient for follow up of pneumonia and still has a cough with some phelgm, saw stone rougher and put on medication and is feeling better, cough is better but still there. Convex Grinder Operator Required: No Allergies No Known Allergies (No Known Allergies*) Allergy (Verified 04/07/25 15:26) Medication List - Last Reconciled 04/07/25 by Bashir Coffey MD albuterol sulfate 90 mcg/actuation 2 puffs inhalation Q4-6H PRN alprazolam 0.25 mg PO DAILY PRN blood sugar diagnostic (FreeStyle Lite Strips) As directed check the BS QD blood-glucose meter (FreeStyle Lite Meter kit) As directed check the BS QD [id number]-djqjnxyc-vuoriqezvi 160-9-4.8 mcg/actuation (Breztri Aerosphere) 2 inhalations inhalation BID cetirizine-pseudoephedrine 5-120 mg ER 1 tab PO BID PRN 7 days fluticasone propionate 50 mcg/actuation (Flonase Allergy Relief) 2 sprays intranasal DAILY hydrochlorothiazide 25 mg PO QAM ibuprofen 800 mg PO TID PRN lancets (FreeStyle Lancets) As directed check BS QD levocetirizine 5 mg PO DAILY losartan 50 mg PO DAILY omeprazole 20 mg PO DAILY Do you need a note to return to daycare/school/sports/work: No HPI HPI Cough/Unspecified bacterial pneumonia: Details: 60 years old female is here to be evaluated for bronchial asthma, And also chest x-ray abnormalities. She states that since August of this year she has had episodes of chest congestion with cough and some wheezing. A chest x-ray in November showed questionable faint opacity in the right upper lobe she was treated with a course of antibiotic and prednisone. and got better She had a repeat chest x-ray on 02/10 and 03/03 . She was been treated with a course of antibiotic, most likely Z-Dillan and then prednisone and symptoms improved. The chest x-ray on 03/03 is reviewed and it shows a very faint nodularity in the right apex. No other abnormalities. I reviewed her blood test especially CBC, since 2019. CBC has consistently shown moderate eosinophilia , the last test in 2024 and shows eosinophil count 7.3. The patient states that recently she has been seen by document management specialist, with complaint of cough. She was treated with injection of Solu-Medrol, and also started on Breztri 2 puffs b.i.d., and levo cetirizine 5 mg daily. She already feels much better,. [facility] Medical History (Updated 04/14/25 @ 08:44 by Bashir Coffey MD) Asthma Community acquired bacterial pneumonia Cough Cervical muscle strain Obesity Hypertension GERD (gastroesophageal reflux disease) Anxiety Allergic rhinitis Surgical History History of abdominal surgery Family History Father Diabetes Hypertension Mother Hypertension Renal cancer S/P total abdominal hysterectomy and bilateral salpingo-oophorectomy Sister Depression Brother Substance abuse Depression Alcoholism Drug abuse and dependence Social History Housing: House Alcohol intake: current Alcohol intake frequency: a few times a week Comment: 3x a week3-4 beerleopoldo Patient Tobacco Use Status: Former Tobacco user Tobacco use type: Cigarette Years Smoked: 2011 e-Cigarette/Vaping Use: Never Used Second Hand Smoke Exposure: Yes service: No Current occupational status: employed 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 Cognitive needs: No Hearing needs: No Vision needs: Yes (contacts) Review of Systems Const All systems reviewed & are unremarkable except as noted in HPI and below Eyes Reports no additional complaints ENT Reports nasal congestion and Reports nasal discharge Card Reports no additional complaints Resp Reports as per HPI GI Reports no additional complaints Reports no additional complaints Musc Reports no additional complaints Skin/Breast Reports system reviewed and no additional complaints, except as documented Neuro Reports no additional complaints Psych Reports no additional complaints Endo Reports no additional complaints Donnie/Lymph Reports no additional complaints Aller/Immun Reports no additional complaints Physical Exam Vital Signs: Last Vital Signs Pulse 80 04/07/25 14:15 BP 120/78 04/07/25 14:15 Pulse Ox 97 04/07/25 14:15 Oxygen Delivery Method Room Air 04/07/25 14:15 BMI result Body Mass Index 41.1 She is grossly obese, but denies symptoms. of sleep apnea Const General: healthy appearing (Except for being overweight), comfortable, no acute distress, alert and awake Orientation/consciousness: patient oriented x3 HEENT Head: Yes normal to inspection General nose exam: No nasal polyps present and No nasal discharge present Face and sinus: Yes sinuses nontender Mouth: oropharynx normal Throat: Yes posterior oropharynx normal Eyes General: appearance normal, both eyes and all related structures Neck Neck: Yes normal visual inspection, Yes no lymphadenopathy, Yes trachea midline and Yes no JVD Thyroid: Thyroid normal Chest Chest palpation & inspection: normal inspection of the chest, normal palpation of entire chest wall and no tenderness Resp Other: Percussion note is resonant. She has good breath sounds on both sides, vesicular in character. No wheezes or crepitations are heard. Cardio Palpation: normal PMI Rate: regular rate Rhythm: regular rhythm Heart sounds: no gallops and no murmurs Peripheral pulses: Peripheral pulses 2+ throughout GI Palpation (GI): Soft to palpation, nontender, No hepatosplenomegaly present and no masses Auscultation: normal bowel sounds Back/Spine/Pelvis Thoracic/Lumbar Spine: thoracic and lumbar spine normal to inspection Skin General skin exam: no rashes or lesions noted Neuro General: patient oriented x3 and no focal motor deficits Cranial nerves: Yes CN's II-XII intact bilaterally Extrem General: Yes normal to inspection, Yes no clubbing, cyanosis or edema and Yes no calf tenderness Psych Speech and movement: Normal speech and movement present Results Reviewed Results Reviewed: Eosinophil count, starting from 2019, has been high, 5.4, 6.8, 5.7, 7.9, and the last reading 7.3 Chest x-ray 03/03/2025. A faint nodularity in right apex, no other abnormalities, this may be residual from her recent pneumonia. Could represent allergic alveolitis Assessment & Plan Assessment & Plan (1) Respiratory tract congestion with cough: Comment: I think this patient has allergic bronchial asthma. She may be hypersensitive to many environmental agents. She is being worked up by the allergy specialists. She is responding well to treatment with Breztri , levocetirizine 5 mg daily and albuterol p.r.n. Code(s): R05.8 - Other specified cough Category: Medical Plan: I have ordered CBC with diff to check for eosinophil count and also IgE level. This is to evaluate for possibility of biologic treatment. In the meantime continue Breztri 2 puffs b.i.d., and albuterol HFA 2 puffs Q 6 hours p.r.n. (2) Asthma: Comment: Allergic bronchial asthma as noted above under respiratory congestion and cough. Code(s): J45.909 - Unspecified asthma, uncomplicated Category: Medical Plan: Medications as under respiratory congestion and cough. Pulmonary function test. Patient instructed that she should not use Breztri for about 2 days before the test. If patient has persistent eosinophilia and or high IGE levels, she may be candidate for biologic treatment . Orders: Orders Immunoglobulin E Today J45.909 - Unspecified asthma, uncomplicated, R05.2 - Subacute cough, R05.8 - Other specified cough Complete Blood Count Auto Diff Today J45.909 - Unspecified asthma, uncomplicated, R05.3 - Chronic cough, R05.8 - Other specified cough Coding Level of Care Code New Pt Level 4 (98962) Diagnoses Respiratory tract congestion with cough R05.8 Asthma J45.909
--- OUTSIDE RECORDS SUMMARY | 2025-04-07 18:34 | XMS_ITS | Patient Health Record ---
Author Organization [facility] Address [address] [place] [address] Care Team Providers Care Elastic Attacher Overlock Name Role Phone Pushpa Meadows MD Primary Care Provider Missael Lopez [phone] Allergies No Known Allergies Reason For Referral [...] Problem Status W/U Status Risk Notes Problem 079660132 Encounter for screening for malignant neoplasm of colon (Z12.11) Active confirmed Problem Diverticular disease of colon (643009188) Diverticulosis of large intestine without perforation or abscess without bleeding (K57.30) Active confirmed Problem Screening for malignant neoplasm of rectum (778313919) Encounter for screening for malignant neoplasm of rectum (Z12.12) Active confirmed Problem 729711208 Gastroesophageal reflux disease, esophagitis presence not specified (K21.9) Active confirmed Problem 969046410 Screening for co owen cancer (Z12.11) Active confirmed Problem 633661416 Hx of adenomatou s colonic polyps (Z86.010) Active confirmed Plan Of Treatment Pending Test Test Name Order Date Pathology 11/04/2022 Future Test Test Name Order Date UPPER GI ENDOSCOPY 03/22/2016 COLONOSCOPY 03/22/2016 COLONOSCOPY 09/11/2022 Insurance Providers Payer Name Payer Address Payer Phone Subscriber Number Group Number Insured Name Patient Relationship to Insured Coverage Start Date Coverage End Date [facility] [address] [place] [address] [id number] ARLENE LOVE Self - patient is the insured Medical (General) History Medical History History ICD Code Denies [place],DM,CVA,Lung disease,renal dise ase Chest pain in 02/2016--in ER- -neg. 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
== END 2025-04-07 14:55 | disposition home or self-care (01) ==
LOC: HO.HPS 14:08
PROVIDERS: PCP Internal Medicine; Visit Provider Internal Medicine
DX: R05.8 Other specified cough (principal); J45.909 Unspecified asthma, uncomplicated
CPT/HCPCS: 99204

== ENCOUNTER → 2025-04-07 14:07 | Outpatient (BNVA) | payer OTHER, SELFPAY | PROVIDERS: PCP Internal Medicine; Visit Provider Internal Medicine | DX: J45.909 Unspecified asthma, uncomplicated (principal); R05.8 Other specified cough | CPT/HCPCS: 99202 ==

== ENCOUNTER 2025-04-14 07:04 | Outpatient (REF) | payer OTHER, SELFPAY ==
--- OUTSIDE RECORDS SUMMARY | 2025-04-14 07:09 | XMS_ITS | Patient Health Record ---
Author Organization [facility] Address [address] [place] [address] Care Team Providers Care Web Marketing Specialist Name Role Phone Pushpa Meadows MD Primary Care Provider Missael Lopez [phone] Allergies No Known Allergies Reason For Referral [...] Problem Status W/U Status Risk Notes Problem [id number] Encounter for screening for malignant neoplasm of colon (Z12.11) Active confirmed Problem Diverticular disease of colon (419812494) Diverticulosis of large intestine without perforation or abscess without bleeding (K57.30) Active confirmed Problem Screening for malignant neoplasm of rectum (089487810) Encounter for screening for malignant neoplasm of rectum (Z12.12) Active confirmed Problem 422702350 Gastroesophageal reflux disease, esophagitis presence not specified (K21.9) Active confirmed Problem 971281615 Screening for co owen cancer (Z12.11) Active confirmed Problem 247594909 Hx of adenomatou s colonic polyps (Z86.010) Active confirmed Plan Of Treatment Pending Test Test Name Order Date Pathology 11/04/2022 Future Test Test Name Order Date UPPER GI ENDOSCOPY 03/22/2016 COLONOSCOPY 03/22/2016 COLONOSCOPY 09/11/2022 Insurance Providers Payer Name Payer Address Payer Phone Subscriber Number Group Number Insured Name Patient Relationship to Insured Coverage Start Date Coverage End Date [facility] [address] [place] [address] [id number] ARLENE LOVE Self - patient is the [...] Date(Month/Year) 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
[2025-04-14 10:28] LABS: MANUAL DIFF FLAG NO
[2025-04-14 10:43] LABS: Hematocrit 43.6 % (37.0-47.0); Hemoglobin 14.4 g/dl (12.0-16.0); Imm Gran Abs Auto 0.02 X10*3/uL (0.00-0.03); Imm Gran Pct Auto 0.3 % (0.0-0.4); Lymphocytes Absolute Auto 2.8 X10*3/uL (1.2-4.9); Mean Corpuscular HGB Conc 33.0 g/dl (31.0-35.0); Mean Corpuscular Hemoglobin 29.5 pg (27.0-33.0); Mean Corpuscular Volume 89.3 fL (80.0-98.0); NRBC Abs Auto 0.000 X10*3/uL (0.0-0.012); NRBC Pct Auto 0.0 /100WBC (0.0-0.2); Platelet Count 287 X10*3/uL (160-400); Red Blood Count 4.88 X10*6/uL (4.20-5.50); White Blood Count 7.8 X10*3/uL (4.8-10.8)
== END 2025-04-14 07:05 | disposition home or self-care (01) ==
LOC: HO.HMGCLDS 07:04
PROVIDERS: PCP Internal Medicine; Visit Provider Internal Medicine
DX: R05.2 Subacute cough (principal); J45.909 Unspecified asthma, uncomplicated; R05.3 Chronic cough
CPT/HCPCS: 36415; 82785; 85025

== ENCOUNTER 2025-04-21 07:30 | Outpatient (REF) | payer OTHER, SELFPAY ==
[2025-04-21 10:03] LABS: MANUAL DIFF FLAG NO
[2025-04-21 10:05] LABS: Hematocrit 44.3 % (37.0-47.0); Hemoglobin 14.2 g/dl (12.0-16.0); Imm Gran Abs Auto 0.02 X10*3/uL (0.00-0.03); Imm Gran Pct Auto 0.3 % (0.0-0.4); Lymphocytes Absolute Auto 2.2 X10*3/uL (1.2-4.9); Mean Corpuscular HGB Conc 32.1 g/dl (31.0-35.0); Mean Corpuscular Hemoglobin 29.2 pg (27.0-33.0); Mean Corpuscular Volume 91.0 fL (80.0-98.0); NRBC Abs Auto 0.000 X10*3/uL (0.0-0.012); NRBC Pct Auto 0.0 /100WBC (0.0-0.2); Platelet Count 236 X10*3/uL (160-400); Red Blood Count 4.87 X10*6/uL (4.20-5.50); White Blood Count 6.8 X10*3/uL (4.8-10.8)
[2025-04-21 10:35] LABS: Alanine Aminotransferase 26 U/L (0-31); Albumin Level 4.0 g/dL (3.5-5.0); Alkaline Phosphatase 83 U/L (39-117); Anion Gap 11 (12-20); Aspartate Amino Transferase 21 U/L (5-31); Blood Urea Nitrogen 22 mg/dL (9-16); Calcium 9.0 mg/dL (8.4-10.2); Carbon Dioxide 30 mmol/L (22-29); Chloride 108 mmol/L (96-108); Cholesterol 176 mg/dL (<200); Estimated Glomerular Filt Rate > 60; HDL Cholesterol 56 mg/dL (>40); Potassium 3.9 mmol/L (3.3-5.1); Sodium 145 mmol/L (135-145); Total Protein 6.7 g/dL (6.5-8.0); Triglycerides 63 mg/dL (<150)
[2025-04-21 10:57] LABS: Free T4 (Free Thyroxine) 0.97 ng/dL (0.71-1.85); Thyroid Stimulating Hormone 1.86 uIU/mL (0.32-4.0)
[2025-04-21 10:59] LABS: Folate 10.9 ng/mL (> or = 4.0); Vitamin B12 584 pg/mL (200-900)
== END 2025-04-21 07:31 | disposition home or self-care (01) ==
LOC: HO.HMGCLDS 07:30
PROVIDERS: PCP Internal Medicine; Visit Provider Internal Medicine
DX: E11.65 Type 2 diabetes mellitus with hyperglycemia (principal); E78.00 Pure hypercholesterolemia, unspecified
CPT/HCPCS: 36415; 80053; 80061; 82306; 82607; 82746; 83036; 84439; 84443; 85025

== ENCOUNTER 2025-04-29 15:48 | Outpatient (AMB) | payer OTHER, SELFPAY ==
[2025-04-29 16:02] VITALS: BP 102/76; PULSE 88; RESP 18; TEMP 36.2; O2SAT 97; BMI 41.1
--- NOTE | 2025-04-29 16:02 | MHC.PC.OV ---
Vital Signs 04/29/25 16:02 Height 5 ft 2 in Weight 225 lb BMI 41.1 BP 102/76 Blood Pressure Location Lt brachial Position Sitting Respiration 18 Pulse 88 Pulse Source Pulse Oximeter Temp 97.1 F Temp Source Temporal Artery Scan Pulse Oximetry (%) 97 Oxygen Delivery Method Room Air Intake Visit Reasons: Annual Exam Manager Competitive Intelligence Required: No Accompanied by: Self / Same As Patient Allergies No Known Allergies (No Known Allergies*) Allergy (Verified 04/29/25 16:06) Medication List - Last Reconciled 04/29/25 by Pushpa Meadows MD albuterol sulfate 90 mcg/actuation 2 puffs inhalation Q4-6H PRN alprazolam 0.25 mg PO DAILY PRN blood sugar diagnostic (FreeStyle Lite Strips) As directed check the BS QD blood-glucose meter (FreeStyle Lite Meter kit) As directed check the BS QD fksoknuaen-lueurbby-zzocnkworl 160-9-4.8 mcg/actuation (Breztri Aerosphere) 2 inhalations inhalation BID fluticasone propionate 50 mcg/actuation (Flonase Allergy Relief) 2 sprays intranasal DAILY hydrochlorothiazide 25 mg PO QAM lancets (FreeStyle Lancets) As directed check BS QD levocetirizine 5 mg PO DAILY losartan 50 mg PO DAILY omeprazole 20 mg PO DAILY Tobacco use date assessed: 04/29/25 Dental Screening Dental Screen Date: 04/29/25 Did you have a dental visit in the last 12 months?: Yes Did you have a dental problem in the last 6 months where you did not have access to dental care?: No Was dental information given to patient?: Patient has dentist [facility] Medical History Asthma Community acquired bacterial pneumonia Cough Cervical muscle strain Obesity Hypertension GERD (gastroesophageal reflux disease) Anxiety Allergic rhinitis Surgical History History of abdominal surgery Family History Father Diabetes Hypertension Mother Hypertension Renal cancer S/P total abdominal hysterectomy and bilateral salpingo-oophorectomy Sister Depression Brother Substance abuse Depression Alcoholism Drug abuse and dependence Social History (Updated 04/29/25 @ 16:53 by Pushpa Meadows MD) Housing: House Alcohol intake: current Alcohol intake frequency: a few times a week Comment: 3x a week3-4 beers Patient Tobacco Use Status: Former Tobacco user Tobacco use type: Cigarette Years Smoked: 2011 e-Cigarette/Vaping Use: Never Used Second Hand Smoke Exposure: Yes service: No Current occupational status: employed 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 Cognitive needs: No Hearing needs: No Vision needs: Yes (contacts) Questionnaire Thrive Questionnaire Date Thrive assessed: 03/03/25 I am a: Patient What is your living situation today?: I have a steady place to live Within the past 12 months, did the food you bought not last and you didn't have the money to get more?: Never true Within the past 12 months, did you worry whether your food would run out before you got money to buy more?: Never true Do you have trouble paying for medicines?: No Do you have trouble getting transportation to medical appointments?: No Do you have trouble paying your heating and electricity bill?: No Do you have trouble taking care of your child, family member or friend?: No Do you have trouble with day-to-day activities such as bathing, preparing meals, shopping, managing finances, etc.?: No Are you currently unemployed and looking for a job?: No Are you interested in more education?: No Please select the resources that you would like help with: None Currently or been in a relationship where the following occur: No concerns reported THRIVE Score: 0 JOSEPHINE-7 AMB Questionnaire JOSEPHINE-7 Date JOSEPHINE - 7 assessed: 03/03/25 Source: Developed by Drs. Missael Goyal, Nitza Bernard, Shreyas Frances and colleagues, with an educational bakari from [employer]. Review of Systems Const Denies poor appetite and Denies weakness Eyes Denies no additional complaints ENT Reports Normal hearing present, Denies dizziness, Denies nasal congestion, Denies tinnitus and Denies sore throat Card Denies chest pain, Denies syncope, Denies rapid heart rate and Denies dyspnea Resp Denies cough and Denies dyspnea GI Denies change in stool character, Reports constipation, Denies diarrhea, Denies nausea and Denies vomiting Denies urinary frequency, Denies difficulty voiding and Denies dysuria Neuro Reports Normal hearing present, Denies confusion, Denies dizziness, Denies syncope and Denies weakness Psych Denies confusion Physical exam (Primary Care) Vital Signs: Last Vital Signs Temp 97.1 F 04/29/25 16:02 Pulse 88 04/29/25 16:02 Resp 18 04/29/25 16:02 BP 102/76 04/29/25 16:02 Pulse Ox 97 04/29/25 16:02 Oxygen Delivery Method Room Air 04/29/25 16:02 BMI result Body Mass Index 41.1 Tobacco/Smoking Status: Tobacco use Status Tobacco use date assessed 04/29/25 04/29/25 16:03 Patient Tobacco Use Status Former Tobacco user 04/29/25 16:53 Tobacco use type Cigarette 04/29/25 16:53 e-Cigarette/Vaping Use Never Used 04/29/25 16:53 Thrive Assessment: Date of Thrive Assessment Date Thrive assessed 03/03/25 04/29/25 16:03 Currently or been in a relationship where the following occur: No concerns reported Const General: No confusion Orientation/consciousness: No confusion HENMT Head: Yes normocephalic Ears: external ears normal and TM's normal bilaterally Face and sinus: Yes normal facial exam Mouth: moist mucous membranes Throat: Yes tonsils normal Eyes Conjunctivae: conjunctivae normal Pupils: Equal, round and reactive pupils present and Pupil accommodation reflex normal Direct Ophthalmoscopy: normal light reflex Neck Neck: No lymphadenopathy Thyroid: Thyroid normal Chest Chest palpation & inspection: normal inspection of the chest Resp Effort & Inspection: normal respiratory effort and no audible wheezes Auscultation: clear to auscultation bilaterally, no crackles, no wheezes and lung sounds not diminished Cardio Rate: regular rate Rhythm: regular rhythm Peripheral pulses: radial pulses present and dorsalis pedis present GI Palpation (GI): no masses Auscultation: normal bowel sounds and normoactive bowel sounds Rectal Exam - Female: deferred Skin General skin exam: no rashes or lesions noted Rashes: no rashes Neuro General: No confusion Cranial nerves: Yes Equal, round and reactive pupils present and Yes Normal hearing present Cognition (Neuro): normal cognition Gait exam (Neuro): Normal gait present Motor exam (neuro): 5/5 motor strength present throughout Deep tendon reflexes (DTR's): Right brachioradialis reflex intensity grade: 2+, Left brachioradialis reflex intensity grade: 2+, Right patellar reflex intensity grade: 2+ and Left patellar reflex intensity grade: 2+ Extrem General: No edema Coding Level of Care Code Est Pt Prev Care 40-64y(03257) Diagnoses Type 2 diabetes mellitus with hyperglycemia E11.65 Essential hypertension I10 Hypertension type: essential hypertension Hypercholesterolemia E78.00 Gastroesophageal reflux disease without esophagitis K21.9 Esophagitis presence: without esophagitis Asthma J45.909 Generalized anxiety disorder F41.1 Assessment & Plan Assessment & Plan (1) Type 2 diabetes mellitus with hyperglycemia: Code(s): E11.65 - Type 2 diabetes mellitus with hyperglycemia Category: Medical Plan: Decrease the amount of carbohydrate intake, pasta, bread, rice and potatoes are all sugar and that is aside from all the sweet stuff, remember that fruits are good but they are Sweet also. Hemoglobin A1c goal of less than 6.5. Patient is diet controlled discussed about eye exams. (2) Hypertension: Code(s): I10 - Essential (primary) hypertension Category: Medical Qualifiers: Hypertension type: essential hypertension Qualified Code(s): I10 - Essential (primary) hypertension Plan: Continue with blood pressure medication. Decrease salt intake and exercise on losartan 50 mg once a day hydrochlorothiazide 25 mg once a day (3) Hypercholesterolemia: Code(s): E78.00 - Pure hypercholesterolemia, unspecified Category: Medical Plan: Avoid fried foods, chicken skin, eggs, butter margarine, pastries and meat. Be it pork or beef they have a lot of cholesterol LDL goal of less than 100 and triglyceride of less than 150. (4) GERD (gastroesophageal reflux disease): Code(s): K21.9 - Gastro-esophageal reflux disease without esophagitis Category: Medical Qualifiers: Esophagitis presence: without esophagitis Qualified Code(s): K21.9 - Gastro-esophageal reflux disease without esophagitis Plan: Avoid the foods that causes that usually spicy foods, tomato products, juices, coffee, soda and foods that your sensitive to. After eating do not lie down, allow 3-4 hours before in lie down. And keep the head of bed above 30 degrees to avoid the acid from going up. (5) Asthma: Comment: Allergic bronchial asthma as noted above under respiratory congestion and cough. Code(s): J45.909 - Unspecified asthma, uncomplicated Category: Medical Plan: Patient has been followed up by Pulmonary has been placed on Breztri and albuterol inhaler (6) Generalized anxiety disorder: Code(s): F41.1 - Generalized anxiety disorder Category: Medical Plan: Continue with present medication Plan History of Present Illness The patient is a 60-year-old female presenting for a physical examination and management of multiple chronic conditions. The patient has a history of obesity, which has been a persistent issue. She has been managing her weight through dietary changes, though she reports recent weight gain. The patient has been diagnosed with Gastroesophageal Reflux Disease (GERD) and is currently taking omeprazole as needed. She experiences dry throat, which may be related to her medication use. Hypertension is being managed with losartan and hydrochlorothiazide. The patient monitors her blood pressure at home, which typically runs around 130/80 mmHg. The patient has a history of tubular adenoma of the colon, with the last colonoscopy performed in October 2022. Diabetes mellitus is diet-controlled, with a recent hemoglobin A1c of 6.2%. The patient experiences occasional hypoglycemic episodes, which are managed by dietary adjustments. Hypercholesterolemia is being monitored, with the last LDL cholesterol level recorded at 108 mg/dL. The patient is considering lifestyle changes to improve her cholesterol levels. The patient has generalized anxiety disorder, which is managed with alprazolam as needed. Allergic bronchial asthma was diagnosed following a pulmonary consultation. The patient is currently using levocetirizine and albuterol as needed. A heart murmur was detected during the examination, though the patient reports no related symptoms. Health Maintenance - Colonoscopy last performed in October 2022 - Mammogram conducted in May 2024 - Blood pressure monitoring at home - Regular blood sugar monitoring - Cholesterol monitoring with LDL goal of less than 100 mg/dL - Eye exams discussed - Consideration of shingles vaccination Social History - Alcohol use: Occasional consumption, last reported at a wedding - Tobacco use: Denies current use - Recreational drug use: Denies current use - Exercise: Limited due to recent health issues, plans to increase activity - Diet: Reports recent unhealthy eating habits, plans to improve Review of Systems - General: Reports dry throat, denies fever or chills - Cardiovascular: Denies chest pain or palpitations - Respiratory: Reports dry cough, denies dyspnea - Gastrointestinal: Denies nausea, vomiting, or abdominal pain - Neurological: Denies dizziness or headaches - Musculoskeletal: Denies joint pain or swelling Physical Exam General: Cooperative, healthy appearing, comfortable, no acute distress and well developed Orientation: Patient oriented x3 Limitations: No limitations Head: Normal to inspection Ears: Hearing grossly normal bilaterally Nose: Normal external nose present Face and sinus: Normal facial exam Eyes: Appearance normal, both eyes and all related structures Neck: Normal visual inspection and Yes full ROM Respiratory: Normal respiratory effort and able to speak in complete sentences. Clear to auscultation bilaterally Cardiovascular: Regular rate and rhythm. Normal S1 and S2. A little bit of a murmur noted GI: Normal to inspection. Soft to palpation and nontender Skin: No rashes or lesions noted Neuro: Patient oriented x3 Extremities: Normal to inspection Results - Labs: Elevated eosinophils, hemoglobin A1c at 6.2%, LDL cholesterol at 108 mg/dL - Imaging: Chest X-ray reviewed, no acute findings Plan Patient was informed and verbally consented to the use of an ambient scribe for clinic note documentation during this visit. 1. Obesity The patient is advised to continue dietary modifications and increase physical activity to manage obesity. 2. Gastroesophageal Reflux Disease (Gerd) The patient is advised to continue using omeprazole as needed for GERD management. 3. Hypertension The patient is to continue current antihypertensive medications, losartan and hydrochlorothiazide, and monitor blood pressure at home. 4. Tubular Adenoma Of The Colon The patient is advised to follow up with regular colonoscopies as per guidelines. 5. Diabetes Mellitus The patient is advised to maintain dietary control to manage diabetes and monitor blood sugar levels regularly. 6. Hypercholesterolemia The patient is encouraged to make lifestyle changes to reduce LDL cholesterol levels and consider medication if lifestyle changes are insufficient. 7. Generalized Anxiety Disorder The patient is advised to use alprazolam as needed for anxiety management. 8. Allergic Bronchial Asthma The patient is advised to continue using levocetirizine and albuterol as needed for asthma management. 9. Heart Murmur The patient is advised to undergo an echocardiogram to evaluate the heart murmur further. Discussion Notes During the visit, I discussed the management of the patient's chronic conditions, including obesity, GERD, hypertension, diabetes, and hypercholesterolemia. We reviewed the importance of lifestyle modifications and medication adherence to manage these conditions effectively. I also addressed the patient's concerns about allergic bronchial asthma and the use of medications such as levocetirizine and albuterol. We discussed the detection of a heart murmur and the need for further evaluation with an echocardiogram. The patient was informed about the potential benefits and side effects of the shingles vaccine and encouraged to consider it. Patient Instructions - Continue dietary modifications and increase physical activity to manage weight. - Use omeprazole as needed for GERD symptoms. - Monitor blood pressure at home and continue current medications. - Maintain dietary control for diabetes and monitor blood sugar levels regularly. - Consider lifestyle changes to reduce cholesterol levels. - Use alprazolam as needed for anxiety. - Continue using levocetirizine and albuterol as needed for asthma. - Schedule an echocardiogram to evaluate the heart murmur. - Consider receiving the shingles vaccine at a pharmacy. Orders: Orders ECG 12 lead EKG Today I10 - Essential (primary) hypertension Lipid Panel Today E78.00 - Pure hypercholesterolemia, unspecified, I10 - Essential (primary) hypertension Hemoglobin A1c Today I10 - Essential (primary) hypertension CA echo transthoracic complete Today I10 - Essential (primary) hypertension Comprehensive Met. Panel Today I10 - Essential (primary) hypertension
--- OUTSIDE RECORDS SUMMARY | 2025-04-29 18:10 | XMS_ITS | Patient Health Record ---
Author Organization [facility] Address [address] [place] [address] Care Team Providers Care Production Supervisor Name Role Phone Pushpa Meadows MD Primary Care Provider Missael Lopez [phone] Allergies No Known Allergies Reason For Referral No Information Medications Medication SIG (Take, Route, Frequency, Duration) Notes Start Date End Date Status Flonase Allergy Relief 50 MCG/ACT 1 spray in each nostril Nasally Once a day; Duration: 30 day(s) Active Omeprazole 20 MG 1 [...] Problem Status W/U Status Risk Notes Problem Screening for malignant neoplasm of colon (045889055) Encounter for screening for malignant neoplasm of colon (Z12.11) Active confirmed Problem Diverticular disease of colon (063395346) Diverticulosis of large intestine without perforation or abscess without bleeding (K57.30) Active confirmed Problem Screening for malignant neoplasm of rectum (894835650) Encounter for screening for malignant neoplasm of rectum (Z12.12) Active confirmed Problem Gastroesophageal reflux disease (417780267) Gastroesophageal reflux disease, esophagitis presence not specified (K21.9) Active confirmed Problem Screening for colon cancer (681650973) Screening for colon cancer (Z12.11) Active confirmed Problem History of adenomatous polyp of colon (783112673) Hx of adenomatous colonic polyps (Z86.010) Active confirmed Plan Of Treatment Pending Test Test Name Order Date Pathology 11/04/2022 Future Test Test Name Order Date UPPER GI ENDOSCOPY 03/22/2016 COLONOSCOPY 03/22/2016 COLONOSCOPY 09/11/2022 Insurance Providers Payer Name Payer Address Payer Phone Subscriber Number Group Number Insured Name Patient Relationship to Insured Coverage Start Date Coverage End Date [facility] [address] [place] [address] [id number] ARLENE LOVE Self - patient is the insured Medical (General) History Medical History History ICD Code Denies PR,DM,CVA,Lung disease,renal dise ase Chest pain in 02/2016--in ER- -neg. 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
== END 2025-04-29 17:16 | disposition home or self-care (01) ==
LOC: HO.HMCH 15:49
PROVIDERS: PCP Internal Medicine; Visit Provider Internal Medicine
DX: Z00.00 Encounter for general adult medical examination without abnormal findings (principal); E11.65 Type 2 diabetes mellitus with hyperglycemia; I10 Essential (primary) hypertension; E78.00 Pure hypercholesterolemia, unspecified; K21.9 Gastro-esophageal reflux disease without esophagitis; J45.909 Unspecified asthma, uncomplicated; F41.1 Generalized anxiety disorder

== ENCOUNTER → 2025-04-29 15:48 | Outpatient (BNVA) | payer OTHER, SELFPAY | PROVIDERS: PCP Internal Medicine; Visit Provider Internal Medicine | DX: E11.65 Type 2 diabetes mellitus with hyperglycemia (principal); I10 Essential (primary) hypertension; E78.00 Pure hypercholesterolemia, unspecified; K21.9 Gastro-esophageal reflux disease without esophagitis; J45.909 Unspecified asthma, uncomplicated; F41.1 Generalized anxiety disorder; E66.9 Obesity, unspecified; E11.9 Type 2 diabetes mellitus without complications; R01.1 Cardiac murmur, unspecified; Z68.41 Body mass index [BMI] 40.0-44.9, adult; Z86.0101 Personal history of adenomatous and serrated colon polyps | CPT/HCPCS: 99396 ==

== ENCOUNTER 2025-05-05 14:46 | Outpatient (REF) | payer OTHER, SELFPAY ==
--- NOTE | 2025-05-05 15:00 | PFT_ITS ---
Indication: Cough Spirometry FEV1 to FVC 68%; FEV1 1.91 L; FVC 2.82 L. Is a trend response to bronchodilators noted. Lung Volumes Total lung capacity 94% predicted Diffusion Capacity DLCO 104% predicted Methacholine Challenge [] Flow Volume Loops [] MVV 83% predicted Comparison None Interpretation There is an obstructive ventilatory defect consistent with mild to moderate COPD. This is a trend response to bronchodilators noted. Lung volumes are normal. Diffusing capacity is within normal limits. Clinical correlation warranted. MTDD
[2025-05-05 15:49] VITALS: PULSE 82
--- OUTSIDE RECORDS SUMMARY | 2025-05-05 18:36 | XMS_ITS | Patient Health Record ---
Author Organization [facility] Address [address] [place] [address] Care Team Providers Care Continuous Improvement Engineer Name Role Phone Pushpa Meadows MD Primary Care Provider Missael Lopez [phone] Allergies No Known Allergies Reason For Referral [...] Problem Screening for malignant neoplasm of colon (832454200) Encounter for screening for malignant neoplasm of colon (Z12.11) Active confirmed Problem Diverticular disease of colon (426454685) Diverticulosis of large intestine without perforation or abscess without bleeding (K57.30) Active confirmed Problem Screening for malignant neoplasm of rectum (553950141) Encounter for screening for malignant neoplasm of rectum (Z12.12) Active confirmed Problem Gastroesophageal reflux disease (675129637) Gastroesophageal reflux disease, esophagitis presence not specified (K21.9) Active confirmed Problem Screening for colon cancer (664802486) Screening for colon cancer (Z12.11) Active confirmed Problem History of adenomatous polyp of colon (752406886) Hx of adenomatous colonic polyps (Z86.010) Active confirmed Plan Of Treatment Pending Test Test Name Order Date Pathology 11/04/2022 Future Test Test Name Order Date UPPER GI ENDOSCOPY 03/22/2016 COLONOSCOPY 03/22/2016 COLONOSCOPY 09/11/2022 Insurance Providers Payer Name Payer Address Payer Phone Subscriber Number Group Number Insured Name Patient Relationship to Insured Coverage Start Date Coverage End Date [facility] [address] [place] [address] [id number] ARLENE LOVE Self - patient is the insured Medical (General) History Medical History History ICD Code Denies DC,DM,CVA,Lung disease,renal dise ase Chest pain in 02/2016--in ER- -neg. 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
== END 2025-05-05 14:47 | disposition home or self-care (01) ==
LOC: HO.RESP 14:46
PROVIDERS: PCP Internal Medicine
DX: R05.3 Chronic cough (principal)
CPT/HCPCS: 94060; 94640; 94727; 94729

== ENCOUNTER → 2025-05-05 15:00 | Outpatient (BNV) | payer OTHER, SELFPAY | PROVIDERS: PCP Internal Medicine; Visit Provider Hospitalist | DX: J98.4 Other disorders of lung (principal) | CPT/HCPCS: 94060; 94727; 94729 ==

== ENCOUNTER 2025-05-12 13:43 | Outpatient (AMB) | payer OTHER, SELFPAY ==
[2025-05-12 13:52] VITALS: BP 122/68; PULSE 107; O2SAT 98; BMI 41.1
--- NOTE | 2025-05-12 13:52 | A.OFFVIS_ITS ---
Vital Signs 05/12/25 13:52 Height 5 ft 2 in Weight 224 lb 13.944 oz BMI 41.1 BP 122/68 Blood Pressure Location Lt brachial Position Sitting Pulse 107 H Pulse Source Pulse Oximeter Pulse Oximetry (%) 98 Oxygen Delivery Method Room Air Intake Visit Reasons: Cough Intake Note: pt is here for follow up of pft and she has not felt the need to use rescue since inhaler and allergy medicine was added. Anesthesiology Physician Assistant Required: No Bedspread Seamer: Bedspread Seamer offered & declined Allergies No Known Allergies (No Known Allergies*) Allergy (Verified 05/12/25 14:47) Medication List - Last Reconciled 05/12/25 by Bashir Coffey MD albuterol sulfate 90 mcg/actuation 2 puffs inhalation Q4-6H PRN alprazolam 0.25 mg PO DAILY PRN blood sugar diagnostic (FreeStyle Lite Strips) As directed check the BS QD blood-glucose meter (FreeStyle Lite Meter kit) As directed check the BS QD rtrtdojicg-weihqdpu-tqoniszyht 160-9-4.8 mcg/actuation (Breztri Aerosphere) 2 inhalations inhalation BID fluticasone propionate 50 mcg/actuation (Flonase Allergy Relief) 2 sprays intranasal DAILY hydrochlorothiazide 25 mg PO QAM lancets (FreeStyle Lancets) As directed check BS QD levocetirizine 5 mg PO DAILY losartan 50 mg PO DAILY omeprazole 20 mg PO DAILY Do you need a note to return to daycare/school/sports/work: No HPI HPI Cough: Details: ARLENE IS 60 YEARS OLD FEMALE WITH LONGSTANDING HISTORY OF NASAL CONGESTION POSTNASAL DRIP COUGH AND WHEEZING. SHE HAS HISTORY OF ALLERGY TO OUTDOOR ENVIRONMENTAL ITEMS WELL HOUSE DUST. SHE DOES HAVE LONGSTANDING HISTORY OF LOW-GRADE EOSINOPHILIA. IGE LEVEL IS NORMAL. PATIENT WAS STARTED ON BREZTRI 2 PUFFS B.I.D., AND LIVER CETIRIZINE 5 MG DAILY. WITH THIS COMBINATION HER NASAL CONGESTION IS DOWN TO MILD AND HER COUGH WELL WHEEZING REMAIN WELL CONTROLLED. BREZTRI IS QUITE RADFORD SEE IF SHE HAS TO BUY OUT OF POCKET BUT, SHE IS ABLE TO GET WITH A COUPON HER LIMITED TIME. SHE HAD PULMONARY FUNCTION TEST ABOUT A WEEK AGO, AND I WILL NOTE DOWN THE FINDINGS . BELOW [facility] Medical History Asthma Community acquired bacterial pneumonia Cough Cervical muscle strain Obesity Hypertension GERD (gastroesophageal reflux disease) Anxiety Allergic rhinitis Surgical History History of abdominal surgery Family History Father Diabetes Hypertension Mother Hypertension Renal cancer S/P total abdominal hysterectomy and bilateral salpingo-oophorectomy Sister Depression Brother Substance abuse Depression Alcoholism Drug abuse and dependence Social History Housing: House Alcohol intake: current Alcohol intake frequency: a few times a week Comment: 3x a week3-4 telly Patient Tobacco Use Status: Former Tobacco user Tobacco use type: Cigarette Years Smoked: 2011 e-Cigarette/Vaping Use: Never Used Second Hand Smoke Exposure: Yes service: No Current occupational status: employed 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 Cognitive needs: No Hearing needs: No Vision needs: Yes (contacts) Review of Systems Const All systems reviewed & are unremarkable except as noted in HPI and below Eyes Reports no additional complaints ENT Reports nasal congestion and Reports nasal discharge Card Reports no additional complaints Resp Reports as per HPI GI Reports no additional complaints Reports no additional complaints Musc Reports no additional complaints Skin/Breast Reports system reviewed and no additional complaints, except as documented Neuro Reports no additional complaints Psych Reports no additional complaints Endo Reports no additional complaints Donnie/Lymph Reports no additional complaints Aller/Immun Reports no additional complaints Physical Exam Vital Signs: Last Vital Signs Pulse 107 H 05/12/25 13:52 BP 122/68 05/12/25 13:52 Pulse Ox 98 05/12/25 13:52 Oxygen Delivery Method Room Air 05/12/25 13:52 BMI result Body Mass Index 41.1 She is grossly obese, but denies symptoms. of sleep apnea Const General: healthy appearing (Except for being overweight), comfortable, no acute distress, alert and awake Orientation/consciousness: patient oriented x3 HEENT Head: Yes normal to inspection General nose exam: No nasal polyps present and No nasal discharge present Face and sinus: Yes sinuses nontender Mouth: oropharynx normal Throat: Yes posterior oropharynx normal Eyes General: appearance normal, both eyes and all related structures Neck Neck: Yes normal visual inspection, Yes no lymphadenopathy, Yes trachea midline and Yes no JVD Thyroid: Thyroid normal Chest Chest palpation & inspection: normal inspection of the chest, normal palpation of entire chest wall and no tenderness Resp Other: Percussion note is resonant. She has good breath sounds on both sides, vesicular in character. No wheezes or crepitations are heard. Cardio Palpation: normal PMI Rate: regular rate Rhythm: regular rhythm Heart sounds: no gallops and no murmurs Peripheral pulses: Peripheral pulses 2+ throughout GI Palpation (GI): Soft to palpation, nontender, No hepatosplenomegaly present and no masses Auscultation: normal bowel sounds Back/Spine/Pelvis Thoracic/Lumbar Spine: thoracic and lumbar spine normal to inspection Skin General skin exam: no rashes or lesions noted Neuro General: patient oriented x3 and no focal motor deficits Cranial nerves: Yes CN's II-XII intact bilaterally Extrem General: Yes normal to inspection, Yes no clubbing, cyanosis or edema and Yes no calf tenderness Psych Speech and movement: Normal speech and movement present Results Reviewed Results Reviewed: CBC EOSINOPHIL COUNT 4.6 (HIGH ) IGE LEVEL 43, NORMAL PULMONARY FUNCTION TEST, Assessment & Plan Assessment & Plan (1) Asthma: Comment: Allergic bronchial asthma as noted above under respiratory congestion and cough. WITH BORDERLINE HIGH EOSINOPHIL COUNT, C/W ALLERGIC ASTHMA. She claims that it is fairly well controlled with use of Breztri 2 puffs b.i.d. Code(s): J45.909 - Unspecified asthma, uncomplicated Category: Medical Plan: Continue Breztri 2 puffs b.i.d.. I told her that when she can not get Breztri then she can be switched to ICS/LABA agent such as Advair 250-51 inhalation b.i.d. or Wixela 250-51 inhalation b.i.d.. Use albuterol 2 puffs Q 6 hours only p.r.n.. (2) Allergic rhinitis: Comment: Allergic rhinitis is also due to environmental allergies/ an eosinophilia Code(s): J30.9 - Allergic rhinitis, unspecified Category: Medical Plan: Continue using Flonase-52 spray in each nostril daily. Continue using level cetirizine 5 mg daily . She complains of being tired with this medicine. I told her that she can switch to Claritin 10 mg once a day if she has less side effect with that. Scribe Plan - Not visible on output: CHRONIC ALLERGIC/ EOSINOPHILIC BRONCHIAL ASTHMA Coding Level of Care Code Est Pt Level 3 (52022) Diagnoses Asthma J45.909 Allergic rhinitis J30.9
--- OUTSIDE RECORDS SUMMARY | 2025-05-12 16:44 | XMS_ITS | Patient Health Record ---
Author Organization [facility] Address [address] [place] [address] Care Team Providers Care Director Group Sales Name Role Phone Pushpa Meadows MD Primary Care Provider Missael Lopez [phone] Allergies No Known Allergies Reason For Referral [...] Problem Screening for malignant neoplasm of colon (149684466) Encounter for screening for malignant neoplasm of colon (Z12.11) Active confirmed Problem Diverticular disease of colon (707262689) Diverticulosis of large intestine without perforation or abscess without bleeding (K57.30) Active confirmed Problem Screening for malignant neoplasm of rectum (095500740) Encounter for screening for malignant neoplasm of rectum (Z12.12) Active confirmed Problem Gastroesophageal reflux disease (309926649) Gastroesophageal reflux disease, esophagitis presence not specified (K21.9) Active confirmed Problem Screening for colon cancer (582610606) Screening for colon cancer (Z12.11) Active confirmed Problem History of adenomatous polyp of colon (457718584) Hx of adenomatous colonic polyps (Z86.010) Active confirmed Plan Of Treatment Pending Test Test Name Order Date Pathology 11/04/2022 Future Test Test Name Order Date UPPER GI ENDOSCOPY 03/22/2016 COLONOSCOPY 03/22/2016 COLONOSCOPY 09/11/2022 Insurance Providers Payer Name Payer Address Payer Phone Subscriber Number Group Number Insured Name Patient Relationship to Insured Coverage Start Date Coverage End Date [facility] [address] [place] [address] [id number] ARLENE LOVE Self - patient is the insured Medical (General) History Medical History History ICD Code Denies MT,DM,CVA,Lung disease,renal dise ase Chest pain in 02/2016--in ER- -neg. 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
== END 2025-05-12 14:47 | disposition home or self-care (01) ==
LOC: HO.HPS 13:44
PROVIDERS: PCP Internal Medicine; Visit Provider Internal Medicine
DX: J45.909 Unspecified asthma, uncomplicated (principal); J30.9 Allergic rhinitis, unspecified
CPT/HCPCS: 99213

== ENCOUNTER → 2025-05-12 13:43 | Outpatient (BNVA) | payer OTHER, SELFPAY | PROVIDERS: PCP Internal Medicine; Visit Provider Internal Medicine | DX: J82.83 Eosinophilic asthma (principal); J30.9 Allergic rhinitis, unspecified; Z79.899 Other long term (current) drug therapy; Z87.891 Personal history of nicotine dependence | CPT/HCPCS: 99212 ==

== ENCOUNTER 2025-05-17 09:46 | Outpatient (AMB) | payer OTHER, SELFPAY ==
[2025-05-17 09:56] VITALS: BP 124/74; BMI 41.3
--- NOTE | 2025-05-17 09:56 | A.OFFVIS_ITS ---
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 no concerns other than having pain in left foot. ? Bone spur Electronics Lead Required: No Information Interpreted: non-clinical & clinical Distribution District Supervisor: Distribution District Supervisor Present (griselda) Accompanied by: Self / Same As Patient Allergies No Known Allergies (No Known Allergies*) Allergy (Verified 05/17/25 09:58) Medication List - Last Reconciled 05/17/25 by Sushma Melo LPN albuterol sulfate 90 mcg/actuation 2 puffs inhalation Q4-6H PRN alprazolam 0.25 mg PO DAILY PRN blood sugar diagnostic (FreeStyle Lite Strips) As directed check the BS QD blood-glucose meter (FreeStyle Lite Meter kit) As directed check the BS QD zctofllpqu-yqyuouai-szoerqpqsx 160-9-4.8 mcg/actuation (Breztri Aerosphere) 2 inhalations inhalation BID fluticasone propionate 50 mcg/actuation (Flonase Allergy Relief) 2 sprays intranasal DAILY hydrochlorothiazide 25 mg PO QAM lancets (FreeStyle Lancets) As directed check BS QD levocetirizine 5 mg PO DAILY losartan 50 mg PO DAILY omeprazole 20 mg PO DAILY Do you need a note to return to daycare/school/sports/work: No HPI Comments Details: 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 Central Supply Aide concerns: heel pain limiting exercises. Currently not sexually active. Denies any vaginal dryness or irritation. STI testing offered; she declines. Attempting to eat a healthy diet with calcium and vitamin D. Last pap smear; 2022, negative. Last mammogram; 2023. Colonoscopy is UTD. Denies any family history of breast, ovarian or colon cancer. [facility] Medical History Asthma Community acquired bacterial pneumonia Cough Cervical muscle strain Obesity Hypertension GERD (gastroesophageal reflux disease) Anxiety Allergic rhinitis Surgical History History of abdominal surgery Family History Father Diabetes Hypertension Mother Hypertension Renal cancer S/P total abdominal hysterectomy and bilateral salpingo-oophorectomy Sister Depression Brother Substance abuse Depression Alcoholism Drug abuse and dependence Social History Housing: House Alcohol intake: current Alcohol intake frequency: a few times a week Comment: 3x a week3-4 beers Patient Tobacco Use Status: Former Tobacco user Tobacco use type: Cigarette Years Smoked: 2011 e-Cigarette/Vaping Use: Never Used Second Hand Smoke Exposure: Yes service: No Current occupational status: employed 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 Cognitive needs: No Hearing needs: No Vision needs: Yes (contacts) Female Reproductive History Menstrual Age of Menarche: 13 Date of menopause: 05/17/15 Age of menopause: 50 Total pregnancies: 4 Full term: 2 Number of Living Children: 2 Ab induced: 1 Ab spontaneous: 1 Date of last pap smear: 05/09/23 (neg pap and hpv) Date of Mammogram: 05/14/24 (Birad 1) Review of Systems Const All systems reviewed & are unremarkable except as noted in HPI and below Reports as per HPI Eyes Reports no additional complaints ENT Reports no additional complaints Card Reports no additional complaints Resp Reports no additional complaints GI Reports as per HPI and Reports no additional complaints Reports as per HPI Musc Reports no additional complaints Skin/Breast Reports as per HPI Neuro Reports no additional complaints Psych Reports no additional complaints Endo Reports no additional complaints Donnie/Lymph Reports no additional complaints Aller/Immun Reports no additional complaints Physical Exam Vital Signs: Last Vital Signs BP 124/74 05/17/25 09:56 BMI result Body Mass Index 41.3 Const General: cooperative, healthy appearing, no acute distress, well developed and alert Orientation/consciousness: patient oriented x3 HEENT Head: Yes normal to inspection Eyes General: appearance normal, both eyes and all related structures Neck Neck: Yes normal visual inspection Thyroid: Thyroid normal Chest Chest palpation & inspection: normal inspection of the chest and other (no puckering, dimpling, peau de orange, retraction, discharge, masses) Breast/axilla inspection: normal inspection of the breasts Breast/axilla palpation: normal palpation of the breasts Resp Effort & Inspection: normal respiratory effort GI Inspection: Yes normal to inspection Palpation (GI): Soft to palpation Rectal Exam - Female: deferred General: Yes bladder normal to palpation External Female Exam: normal external appearance and normal appearance of the urethra Speculum Exam - Vagina: normal appearance of the vagina, normal palpation and normal vaginal discharge Speculum Exam - Cervix: normal appearance of the cervix and normal palpation Bimanual exam- vagina & uterus: normal bimanual exam, normal palpation, uterine size normal, bladder normal to palpation, normal palpation and non-tender Bimanual Exam- Adnexa, other: no masses Skin General skin exam: no rashes or lesions noted Rashes: no rashes Neuro General: patient oriented x3 Cognition (Neuro): normal cognition Extrem General: Yes normal to inspection Psych Attitude: cooperative Thought process: Normal thought process present Assessment & Plan Assessment & Plan (1) Encounter for well woman exam with routine gynecological exam: Code(s): Z01.419 - Encounter for gynecological examination (general) (routine) without abnormal findings Category: Medical Plan Discussed: Current recommendations for pap smears per ASCCP guidelines. Breast awareness, periodic self breast exams and yearly mammogram. Maintain a healthy lifestyle, well balanced diet including Calcium 1,200 mg and Vitamin D 600 IU daily, and routine exercise. Contact the office with any postmenopausal bleeding. Patient verbalizes understanding and agrees to the plan of care. She was given opportunity to ask questions and all questions were answered to the best of my ability. 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 This note is constructed using voice recognition software. While every effort has been made to ensure accuracy, freight service inspector errors may have been included. Coding Level of Care Code Est Pt Prev Care 40-64y(58659) Diagnoses Encounter for well woman exam with routine gynecological exam Z01.419
--- OUTSIDE RECORDS SUMMARY | 2025-05-17 11:04 | XMS_ITS | Patient Health Record ---
Author Organization [facility] Address [address] [place] [address] Care Team Providers Care Lean Consultant Name Role Phone Pushpa Meadows MD Primary Care Provider Missael Lopez [phone] Allergies No Known Allergies Reason For Referral [...] Problem Screening for malignant neoplasm of colon (699024892) Encounter for screening for malignant neoplasm of colon (Z12.11) Active confirmed Problem Diverticular disease of colon (833737015) Diverticulosis of large intestine without perforation or abscess without bleeding (K57.30) Active confirmed Problem Screening for malignant neoplasm of rectum (915270823) Encounter for screening for malignant neoplasm of rectum (Z12.12) Active confirmed Problem Gastroesophageal reflux disease (516183693) Gastroesophageal reflux disease, esophagitis presence not specified (K21.9) Active confirmed Problem Screening for colon cancer (978321375) Screening for colon cancer (Z12.11) Active confirmed Problem History of adenomatous polyp of colon (697661521) Hx of adenomatous colonic polyps (Z86.010) Active confirmed Plan Of Treatment Pending Test Test Name Order Date Pathology 11/04/2022 Future Test Test Name Order Date UPPER GI ENDOSCOPY 03/22/2016 COLONOSCOPY 03/22/2016 COLONOSCOPY 09/11/2022 Insurance Providers Payer Name Payer Address Payer Phone Subscriber Number Group Number Insured Name Patient Relationship to Insured Coverage Start Date Coverage End Date [facility] [address] [place] [address] [id number] ARLENE LOVE Self - patient is the insured Medical (General) History Medical History History ICD Code Denies HI,DM,CVA,Lung disease,renal dise ase Chest pain in 02/2016--in ER- -neg. 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
== END 2025-05-17 10:37 | disposition home or self-care (01) ==
LOC: HO.HWS 09:46
PROVIDERS: PCP Internal Medicine; Visit Provider Advanced Practice Midwife
DX: Z01.419 Encounter for gynecological examination (general) (routine) without abnormal findings (principal)
CPT/HCPCS: 99396; 99459

== ENCOUNTER 2025-05-17 11:07 | Outpatient (REF) | payer OTHER, SELFPAY | END 2025-05-17 11:08 | disposition home or self-care (01) | LOC: HO.MAMMO 11:07 | PROVIDERS: PCP Internal Medicine; Visit Provider Internal Medicine | DX: Z12.31 Encounter for screening mammogram for malignant neoplasm of breast (principal) | CPT/HCPCS: 77063; 77067 ==

== ENCOUNTER → 2025-05-17 12:00 | Outpatient (BNV) | payer OTHER, SELFPAY | PROVIDERS: PCP Internal Medicine; Visit Provider Internal Medicine | DX: Z12.31 Encounter for screening mammogram for malignant neoplasm of breast (principal) | CPT/HCPCS: 77063; 77067 ==

== ENCOUNTER → 2025-06-23 09:00 | Outpatient (REF) | payer OTHER, SELFPAY ==
--- NOTE | 2025-06-23 09:02 | ECG_ITS ---
Test Reason : htn Blood Pressure : */* mmHG Vent. Rate : 92 BPM Atrial Rate : 92 BPM P-R Int : 152 ms QRS Dur : 92 ms QT Int : 364 ms P-R-T Axes : 68 25 41 degrees QTcB Int : 450 ms Normal sinus rhythm Normal ECG When compared with ECG of 06-Apr-2019 07:54, T wave amplitude has decreased in Anterior leads Referred By: Pushpa Meadows Electronically Signed By: GUNJAN GOODWIN MD
--- NOTE | 2025-06-23 09:02 | CA_ITS ---
Transthoracic Echocardiogram Patient (Last, First, Middle): Valencia Brennan, Gender: Female Date of : 1965 Age: 60 Procedure Date: 06/23/2025 Procedure Type: Transthoracic Echocardiogram Location: OP Height: 157.48 cm Weight: 102.51 kg BSA: 2.01 m2 Heart Rate: bpm BP: 124 / 74 mmHg Shop Foreman: PAT Referring MD: Pushpa Meadows MD Lab Coordinator: Xu Logan MD Symptoms: I10 - Essential (primary) hypertension Study Quality: Adequate with contrast ECG Rhythm: Sinus Conclusions: - 1. Normal LV ejection fraction of 60 65% with impaired relaxation filling pattern 2. Xbui-yx-ysxararw aortic stenosis 3. Normal RV systolic pressure 4. No gross pericardial effusion Findings Procedure Information Contrast agent, definity, is being given per protocol without apparent complications. Left Ventricle Normal left ventricular size, thickness, and systolic function. The visually estimated ejection fraction is between 60-65%. Spectral Doppler is indicative of an impaired relaxation filling pattern. E/E prime ratio is between 8 and 15 consistent with indeterminate filling pressures. Right Ventricle Normal right ventricular cavity size and systolic function. Atria Both atria are normal in size. There is no evidence of interatrial shunt. Aortic Valve There is mild calcification of the aortic valve. There is moderate thickening of the aortic valve. There is mild to moderate aortic valve stenosis. The peak aortic gradient is 22 mmHg.The mean gradient is 14 mmHg. The aortic valve area is 1.30 cm2. There is no aortic valve regurgitation. Mitral Valve Likely normal mitral valve structure and function. There is no mitral valve regurgitation. There is no mitral valve stenosis. Pulmonic Valve The pulmonic valve is likely normal. Tricuspid Valve Normal tricuspid valve structure. There is trace tricuspid valve regurgitation. The right ventricular systolic pressure is normal. The right ventricular systolic pressure is 24 mmHg. Normal right atrial pressure. There is no evidence of pulmonary hypertension. Great Vessels All visible segments of the aorta are normal in size. The pulmonary artery was not well visualized. There is no dilatation of the ascending aorta measuring 3.00 cm. Venous The inferior vena cava is normal in size and collapses greater than 50% with inspiration. Pericardium/Pleural There is no evidence of pericardial effusion. Prior Study Comparison No prior study available for comparison. Measurements 2D Linear Measurements IVSd: 0.84 0.6-0.9/0.6-1.0 cm LVIDd: 4.54 3.9-5.3/4.2-5.9 cm LVIDd Index: 2.26 2.4-3.2/2.2-3.1 cm/m2 LVIDs: 2.99 2.0-3.6 cm LVPWd: 0.93 0.7-1.1 cm LA Diam: 3.90 2.7-3.8/3.0-4.0 cm LAIDs Index: 1.94 1.5-2.3 cm/m2 LV Mass: 164.22 67-162/88-224 g LV Mass Index: 81.70 43-95/49-115 g/m2 LVOT Diam: 2.00 3.0+(-)1.3 cm 2D Systolic Function EF 4C: 62.70 >55% EF 2C: 62.10 >55% EF BiP: 61.80 >55% Mitral Valve MV Pk E: 0.82 MV PK A: 0.79 MV Decel Time: 200.00 E/A: 1.00 E'Lateral: 8.05 E'Medial: 7.72 E/E' Med: 10.60 E/E' Lat: 10.20 PHT: 58.00 MVA PHT: 3.79 Decel [place]: 4.10 Aortic Valve AoV Pk Gerald: 2.36 AoV Mn Gerald: 1.80 AoV VTI: 0.49 AoV Pk Grad: 22.00 Aov Mn Grad: 14.00 ANGELIKA Cont.VTI: 1.30 LVOT LVOT Pk Gerald: 0.97 LVOT Mn Gerald: 0.67 LVOT VTI: 0.20 LVOT Pk Grad: 4.00 LVOT Mn Grad: 2.00 LVOT Diam: 2.00 LVOT Area: 3.14 Diastolic Function MV Pk E: 0.82 MV Pk A: 0.79 E/A: 1.00 E'Medial: 7.72 E/E' Med: 10.60 E' Laterial: 8.05 E/E' Lat: 10.20 Right Ventricle TAPSE (mm): 25.60 TVS' Gerald: 13.20 Tricuspid Valve TR Pk Gerald: 2.31 TR Pk Grad: 21.00 RA Press: 3.00 RVSP: 24.00 Great Vessels Aorta Sinus of Valsalva: 2.83 2.0-3.[address] [place]: 2.55 1.7-3.4 cm Ao Asc: 3.00 2.1-3.4 cm Ao Arch: 2.70 Pulmonary Veins Pulm Vein S/D 1.10 Updated in Other Vendor System with Status of Final Xu Logan MD electronically signed on 06/24/2025 7:45:07 AM with status of Final
[2025-06-23 10:16] LABS: MANUAL DIFF FLAG NO
[2025-06-23 10:36] LABS: Hematocrit 43.4 % (37.0-47.0); Hemoglobin 14.1 g/dl (12.0-16.0); Imm Gran Abs Auto 0.06 X10*3/uL (0.00-0.03); Imm Gran Pct Auto 0.5 % (0.0-0.4); Lymphocytes Absolute Auto 2.2 X10*3/uL (1.2-4.9); Mean Corpuscular HGB Conc 32.5 g/dl (31.0-35.0); Mean Corpuscular Hemoglobin 29.1 pg (27.0-33.0); Mean Corpuscular Volume 89.7 fL (80.0-98.0); NRBC Abs Auto 0.000 X10*3/uL (0.0-0.012); NRBC Pct Auto 0.0 /100WBC (0.0-0.2); Platelet Count 301 X10*3/uL (160-400); Red Blood Count 4.84 X10*6/uL (4.20-5.50); White Blood Count 13.1 X10*3/uL (4.8-10.8)
[2025-06-23 11:20] LABS: Alanine Aminotransferase 20 U/L (0-31); Albumin Level 4.3 g/dL (3.5-5.0); Alkaline Phosphatase 86 U/L (39-117); Anion Gap 12 (12-20); Aspartate Amino Transferase 17 U/L (5-31); Blood Urea Nitrogen 15 mg/dL (9-16); Calcium 9.1 mg/dL (8.4-10.2); Carbon Dioxide 28 mmol/L (22-29); Chloride 105 mmol/L (96-108); Estimated Glomerular Filt Rate > 60; Potassium 3.5 mmol/L (3.3-5.1); Sodium 141 mmol/L (135-145); Total Protein 7.8 g/dL (6.5-8.0)
== END ==
LOC: HO.CARD 09:00
PROVIDERS: Absent Provider Nurse Practitioner Family; PCP Internal Medicine; Visit Provider Internal Medicine
DX: J82.83 Eosinophilic asthma (principal); J30.2 Other seasonal allergic rhinitis; I10 Essential (primary) hypertension; Z01.84 Encounter for antibody response examination
CPT/HCPCS: 36415; 80053; 82785; 85025; 86317; 93005; 93306; Q9957

== ENCOUNTER → 2025-06-23 09:02 | Outpatient (BNV) | payer OTHER, SELFPAY | PROVIDERS: Absent Provider Nurse Practitioner Family; PCP Internal Medicine; Visit Provider Internal Medicine Cardiovascular Disease | DX: I10 Essential (primary) hypertension (principal) | CPT/HCPCS: 93010 ==